=== PATIENT | female | born 1985 | race Hispanic/Latino ===

== ENCOUNTER 2022-10-09 08:37 | Emergency (ER) | payer OTHER, SELFPAY ==
[2022-10-09] MEDS ORDERED: PROMETHAZINE INJ 25 MG/ML AMP ONE (08:59)
[2022-10-09] MEDS ORDERED: KETOROLAC 30 MG/ML INJ ONE (09:00)
[2022-10-09 09:10] LABS: Specific Gravity 1.019 (1.005-1.030)
[2022-10-09 09:14] LABS: Specific Gravity 1.019 (1.005-1.030); Urine Bacteria 20-50 /HPF (<20); Urine Bilirubin NEGATIVE (Negative); Urine Blood Negative (Negative); Urine Clarity Turbid (Clear); Urine Color Light-Yellow (Yellow); Urine Glucose NEGATIVE (Negative); Urine Mucus Slight /HPF (None Seen); Urine Protein TRACE (Negative); Urine RBC <5 /HPF (None Seen); Urine Urobilinogen Normal (Normal)
[2022-10-09 09:18] LABS: Absolute Lymphocytes (CBC) 1.4 K/uL (0.7-4.9); Hematocrit 45.1 % (36.0-45.0); MCV 100.9 fL (80-100); MPV 7.6 fL (7.6-11.3); RBC Red Blood Cell Count 4.46 M/uL (3.86-4.86)
[2022-10-09 09:27] LABS: Albumin 4.6 g/dL (3.4-5.0); Bilirubin Total 0.7 mg/dL (0.2-1.0); Potassium 3.7 mEq/L (3.5-5.1); Protein, Total 8.6 g/dL (6.4-8.2)
[2022-10-09] MEDS ORDERED: FENTANYL CITR 100 MCG/2 ML ONE (09:48)
--- NOTE | 2022-10-09 09:55 | RAD REPORT ---
EXAM DESCRIPTION: US - Transvaginal Study Probe - 10/09/2022 9:24 am CLINICAL HISTORY: ABD PAIN, RLQ COMPARISON: No comparisons TECHNIQUE: Sonographic grayscale and color flow images of the pelvis were obtained through transva ginal approach. FINDINGS: Status post hysterectomy and left oophorectomy. No suspicious masses or fluid collections in the hysterectomy bed or adnexal regions. Right ovary measures 3.4 x 2.6 x 2.2 centimeter. Small follicles and an anechoic small dominant cyst or follicle, measuring 11 millimeter. Normal Doppler blood flow was demonstrated to the right ovary. No significant pelvic ascites. IMPRESSION: Status post hysterectomy and left oophorectomy. No suspicious findings in the pelvis.
--- NOTE | 2022-10-09 10:40 | RAD REPORT ---
EXAM DESCRIPTION: CT - Abdomen Pelvis Wo Contrast - 10/09/2022 10:18 am CLINICAL HISTORY: RLQ Abdominal pain COMPARISON: No comparisons TECHNIQUE: Thin cut axial CT imaging of the abdomen and pelvis was performed without IV contrast. Mu ltiplanar reformats were generated and reviewed. All CT scans are performed using dose optimization technique as appropriate and may include automated exposure control or mA/KV adjustment according to patient size. FINDINGS: No suspicious findings in the lung bases. Diffuse hepatic parenchymal hypoattenuation suggesting steatosis. No suspicious focal lesions. Adrena l glands, Spleen, and pancreas show no suspicious findings. Status post cholecystectomy. No evidence of intra or extrahepatic biliary ductal dilation. Symmetric renal contour, without suspicious parenchymal findings within limits of noncontrast techniq ue. No evidence of radiopaque calculi or hydroureteronephrosis. No dilated bowel loops or bowel wall thickening. No free air, free fluid or inflammatory stranding. N o hernia, mass or bulky lymphadenopathy. The urinary bladder is without significant finding. No suspicious bony findings. IMPRESSION: No acute intra-abdominal process. Diffuse hepatic steatosis.
--- NOTE | 2022-10-09 10:45 | EDPHYS ---
Physician Documentation [facility] Name: Fide Scott Age: 36 yrs Sex: Female : 1985 Arrival Date: 10/09/2022 Time: 08:37 Bed 6 Private MD: ED Physician Angelo Hermosillo HPI: 10/09 09:32 This 36 yrs old Female presents to ER via EMS with complaints of Abdominal ms3 Pain. 09:32 36-year-old female with past medical history of ovarian cyst presents via [facility] ms3 for right lower quadrant abdominal pain that has been ongoing for 4 days. Patient endorses emesis. Patient states the pain is a 10/10 and feels like pulling. Patient denies alleviating or inciting factors. Patient states applying heating pad to her abdomen improves the pain. Patient states she has previously had this pain when she had a cyst that was bleeding.. Historical: - Allergies: 08:44 Aspirin; ap3 08:44 Morphine; ap3 08:44 ondansetron; ap3 08:44 Levaquin; ap3 08:44 Iodine; ap3 08:44 Iodinated Contrast Media - IV Dye; ap3 08:44 PENICILLINS; ap3 - Home Meds: 08:44 None [Active]; ap3 - PSHx: 08:44 Appendectomy; Cholecystectomy; cystectomy; ap3 - Immunization history:: Client reports receiving the 2nd dose of the Covid vaccine. - Social history:: Smoking status: Patient reports the use of cigarette tobacco products, denies chronic smoking, but will smoke occasionally, Patient uses alcohol, occasionally. ROS: 09:32 Constitutional: Negative for fever, and chills. Cardiovascular: Negative for chest ms3 pain, and palpitations. Respiratory: Negative for shortness of breath, cough, wheezing, and pleuritic chest pain. 09:32 Skin: Negative for injury, rash, and discoloration. 09:32 Abdomen/GI: Positive for abdominal pain, vomiting. 09:32 All other systems are negative. Exam: 09:32 Constitutional: This is a well developed, well nourished patient who is awake, alert, ms3 and in no acute distress. Head/Face: Normocephalic, atraumatic. Neck: Trachea midline, no cervical lymphadenopathy. Supple, full range of motion without nuchal rigidity, or vertebral point tenderness. No Meningismus. Chest/axilla: Normal chest wall appearance and motion. Nontender with no deformity. Cardiovascular: Regular rate and rhythm with a normal S1 and S2. No gallops, murmurs, or rubs. Normal PMI, no JVD. No pulse deficits. Respiratory: Lungs have equal breath sounds bilaterally, clear to auscultation and percussion. No rales, rhonchi or wheezes noted. No increased work of breathing, no retractions or nasal flaring. 09:32 Abdomen/GI: Inspection: abdomen appears normal, Bowel sounds: normal, Palpation: moderate abdominal tenderness, in the right lower quadrant. Vital Signs: 08:41 BP 150 / 105; Pulse 65; Resp 18; Temp 98.5; Pulse Ox 98% on R/A; Weight 94.35 kg; Pain ap3 10/10; 09:04 BP 142 / 98; Pulse 62; Resp 18; Pulse Ox 99% ; ld1 09:43 BP 132 / 86; Pulse 61; Resp 18; Pulse Ox 99% on R/A; ld1 10:57 BP 113 / 68; Pulse 84; Resp 18; Pulse Ox 99% ; ld1 08:41 Pain Scale: Adult ap3 MDM: 08:41 Patient medically screened. snw 09:32 Differential diagnosis: non-specific abd pain, Ovarian Torsion, Ovarian cyst. ms3 10:46 Data reviewed: vital signs, nurses notes, and as a result, I will discharge patient. I ms3 considered the following discharge prescriptions or medication management in the emergency department Medications were administered in the Emergency Department. See MAR. Historians other than the Patient: EMS: [facility]. Counseling: I had a detailed discussion with the patient and/or guardian regarding: the historical points, exam findings, and any diagnostic results supporting the discharge/admit diagnosis, lab results, radiology results, the need for outpatient follow up, to return to the emergency department if symptoms worsen or persist or if there are any questions or concerns that arise at home. Response to treatment: the patient's symptoms have markedly improved after treatment, and as a result, I will discharge patient. 10/09 08:45 Order name: CBC with Diff; Complete Time: 09:30 ms3 10/09 08:45 Order name: CMP; Complete Time: 09:30 ms3 10/09 08:45 Order name: Test, Urine; Complete Time: 09:30 ms3 10/09 08:45 Order name: Urinalysis w/ reflexes; Complete Time: 09:30 ms3 10/09 09:25 Order name: Transvaginal Study Probe; Complete Time: 10:08 EDMS 10/09 10:10 Order name: CT Abd/Pelvis - Without Contrast; Complete Time: 10:41 ms3 10/09 08:45 Order name: IV Saline Lock; Complete Time: 09:03 ms3 10/09 08:45 Order name: Labs collected and sent; Complete Time: 09:03 ms3 Administered Medications: 09:03 Drug: TORadol - Ketorolac IVP 15 mg Route: IVP; Site: right antecubital; ld1 09:42 Follow up: Response: No adverse reaction ld1 09:03 Drug: Promethazine IVP 12.5 mg Route: IVP; Site: right antecubital; ld1 09:42 Follow up: Response: No adverse reaction ld1 09:42 Not Given (Not availablee): Ketamine IVP 0.2 mg/kg IVP once; Mix in 50 mL NS IV over 10 ld1 minutes. Maximum Dose 10 mg 09:42 Drug: fentaNYL (PF) IVP 50 mcg Route: IVP; Site: right antecubital; ld1 Disposition Summary: 10/09/22 10:44 Discharge Ordered Location: Home ms3 Condition: Stable ms3 Diagnosis - Lower abdominal pain, unspecified ms3 Followup: ms3 - With: Dylan Blackburn DO - When: 2 - 3 days - Reason: Recheck today's complaints Discharge Instructions: - Discharge Summary Sheet ms3 - Abdominal Pain, Adult ms3 Forms: - Medication Reconciliation Form ms3 - Thank You Letter ms3 - Antibiotic Education ms3 - Prescription Opioid Use ms3 Prescriptions: - Ibuprofen 600 mg Oral Tablet - take 1 tablet by ORAL route every 6 hours As needed take with food; 30 tablet; ms3 Refills: 0, Product Selection Permitted Signatures: Dispatcher [employer] Lesley Cortes FNP-C FNP-Edith Martínez RN RN ap3 Angelo Hermosillo DO DO ms3 Queenie Hermosillo RN RN ld1 Corrections: (The following items were deleted from the chart) 09:25 08:46 Pelvis Complete+US.RAD.BRZ ordered. EDMS EDMS
--- NOTE | 2022-10-09 10:45 | ER ---
Nurse's Notes [facility] Name: Fide Scott Age: 36 yrs Sex: Female : 1985 Arrival Date: 10/09/2022 Time: 08:37 Bed 6 Private MD: Diagnosis: Lower abdominal pain, unspecified Presentation: 10/09 08:41 Chief complaint: Patient states: she started having abdominal pain approx 4 days ago ap3 with nausea /vomiting that started this morning. patient states the pain is in the lower right side of her abdomen. patient states the pain is currently 10/10 on the pain scale. Coronavirus screen: At this time, the client does not indicate any symptoms associated with coronavirus-19. Ebola Screen: No symptoms or risks identified at this time. Initial Sepsis Screen: Does the patient meet any 2 criteria? No. Patient's initial sepsis screen is negative. Does the patient have a suspected source of infection? Yes: Acute abdominal pain. Risk Assessment: Do you want to hurt yourself or someone else? Patient reports no desire to harm self or others. Onset of symptoms was October 05, 2022. 08:41 Method Of Arrival: EMS: [facility] ap3 08:41 Acuity: MONIK 3 ap3 Triage Assessment: 08:46 General: Appears uncomfortable, Behavior is cooperative, appropriate for age. Pain: ap3 Complains of pain in right lower quadrant Pain currently is 10 out of 10 on a pain scale. Pain began gradually, 2-3 days ago. Also complains of nausea. Neuro: Level of Consciousness is awake, alert, obeys commands, Oriented to person, place, time, situation. Cardiovascular: Patient's skin is warm and dry. Respiratory: Airway is patent Respiratory effort is even, unlabored, Respiratory pattern is regular, symmetrical. GI: Reports nausea, vomiting. Historical: - Allergies: 08:44 Aspirin; ap3 08:44 Morphine; ap3 08:44 ondansetron; ap3 08:44 Levaquin; ap3 08:44 Iodine; ap3 08:44 Iodinated Contrast Media - IV Dye; ap3 08:44 PENICILLINS; ap3 - Home Meds: 08:44 None [Active]; ap3 - PSHx: 08:44 Appendectomy; Cholecystectomy; cystectomy; ap3 - Immunization history:: Client reports receiving the 2nd dose of the Covid vaccine. - Social history:: Smoking status: Patient reports the use of cigarette tobacco products, denies chronic smoking, but will smoke occasionally, Patient uses alcohol, occasionally. Screenin:46 [facility] ED Fall Risk Assessment (Adult) History of falling in the last 3 months, ap3 including since admission No falls in past 3 months (0 pts). Abuse screen: Denies threats or abuse. Nutritional screening: No deficits noted. Tuberculosis screening: No symptoms or risk factors identified. Assessment: 09:04 General: Appears in no apparent distress. uncomfortable, Behavior is calm, cooperative, ld1 appropriate for age. Pain: Complains of pain in abdomen and right lower quadrant Pain does not radiate. Pain currently is 9 out of 10 on a pain scale. Quality of pain is described as sharp, shooting, throbbing. Neuro: Level of Consciousness is awake, alert, obeys commands, Oriented to person, place, time, situation. Cardiovascular: Capillary refill < 3 seconds Patient's skin is warm and dry. Respiratory: Airway is patent Respiratory effort is even, unlabored. GI: Abdomen is round non-distended, Bowel sounds present X 4 quads. Abd is soft Abdomen is tender to palpation in right lower quadrant Reports nausea, vomiting. : No signs and/or symptoms were reported regarding the genitourinary system. EENT: No signs and/or symptoms were reported regarding the EENT system. Derm: No signs and/or symptoms reported regarding the dermatologic system. 09:35 Reassessment: Pt c/o pain to lower abdomen. Notified ERP. See MAR for orders. ld1 10:57 Reassessment: Patient appears in no apparent distress at this time. No changes from ld1 previously documented assessment. Patient and/or family updated on plan of care and expected duration. Pain level reassessed. Patient is alert, oriented x 3, equal unlabored respirations, skin warm/dry/pink. Patient states feeling better. Vital Signs: 08:41 BP 150 / 105; Pulse 65; Resp 18; Temp 98.5; Pulse Ox 98% on R/A; Weight 94.35 kg; Pain ap3 10/10; 09:04 BP 142 / 98; Pulse 62; Resp 18; Pulse Ox 99% ; ld1 09:43 BP 132 / 86; Pulse 61; Resp 18; Pulse Ox 99% on R/A; ld1 10:57 BP 113 / 68; Pulse 84; Resp 18; Pulse Ox 99% ; ld1 08:41 Pain Scale: Adult ap3 ED Course: 08:40 Patient arrived in ED. zm 08:40 Edith Hu, RN is Primary Nurse. ap3 08:41 Angelo Hermosillo DO is Attending Physician. ms3 08:44 Triage completed. ap3 08:47 Arm band placed on right wrist. ap3 08:47 Patient has correct armband on for positive identification. Bed in low position. Call ap3 light in reach. Side rails up X 1. Pulse ox on. NIBP on. Door closed. Noise minimized. 09:04 Urinalysis w/ reflexes Sent. ld1 09:04 Test, Urine Sent. ld1 09:04 CMP Sent. ld1 09:04 CBC with Diff Sent. ld1 09:05 Inserted saline lock: 20 gauge in right antecubital area, using aseptic technique. ld1 Blood collected. 09:25 Transvaginal Study Probe In Process Unspecified. EDMS 10:19 CT Abd/Pelvis - Without Contrast In Process Unspecified. EDMS 10:44 Dylan Blackburn DO is Referral Physician. ms3 10:57 No provider procedures requiring assistance completed. IV discontinued, intact, ld1 bleeding controlled, No redness/swelling at site. Administered Medications: 09:03 Drug: TORadol - Ketorolac IVP 15 mg Route: IVP; Site: right antecubital; ld1 09:42 Follow up: Response: No adverse reaction ld1 09:03 Drug: Promethazine IVP 12.5 mg Route: IVP; Site: right antecubital; ld1 09:42 Follow up: Response: No adverse reaction ld1 09:42 Not Given (Not availablee): Ketamine IVP 0.2 mg/kg IVP once; Mix in 50 mL NS IV over 10 ld1 minutes. Maximum Dose 10 mg 09:42 Drug: fentaNYL (PF) IVP 50 mcg Route: IVP; Site: right antecubital; ld1 Medication: 08:47 VIS not applicable for this client. ap3 Outcome: 10:44 Discharge ordered by MD. ms3 10:57 Discharged to home ambulatory, with family. ld1 10:57 Condition: stable 10:57 Discharge instructions given to patient, family, Instructed on discharge instructions, follow up and referral plans. medication usage, Demonstrated understanding of instructions, follow-up care, medications, Prescriptions given X 1. 10:57 Patient left the ED. ld1 Signatures: Dispatcher [employer] Edith Harmon RN RN ap3 Angelo Hermosillo DO DO ms3 Queenie Hermosillo RN RN ld1 Subha Pinzon
[2022-10-09 11:09] VITALS: TEMP 98.5
[2022-10-09 11:25] VITALS: O2SAT 99
[2022-10-09 11:27] VITALS: BP 113/68
== END 2022-10-09 10:57 | disposition home or self-care (01) ==
LOC: ER 08:37
DX: R10.31 Right lower quadrant pain (principal); F17.210 Nicotine dependence, cigarettes, uncomplicated; Z88.0 Allergy status to penicillin; Z88.1 Allergy status to other antibiotic agents; Z88.5 Allergy status to narcotic agent; Z88.6 Allergy status to analgesic agent; Z88.8 Allergy status to other drugs, medicaments and biological substances; Z91.041 Radiographic dye allergy status; Z91.048 Other nonmedicinal substance allergy status
CPT/HCPCS: 36415; 74176; 76830; 80053; 81001; 81025; 85025; 96374; 96375; 99284; J2550; J3010

== ENCOUNTER → 2023-07-24 | Emergency (ER) | payer SELFPAY ==
[~2023-07-24] MED LIST: DIPHENHYDRAMINE 50 MG/ML VIAL ONE; KETOROLAC 30 MG/ML INJ ONE; METHOCARBAMOL 1,000 MG/10 ML VIAL ONE; NA CHLORIDE 0.9% 1,000 ML ONE; NA CHLORIDE 0.9% 100 ML ONE; ONDANSETRON 4 MG/2 ML VIAL ONE; PROMETHAZINE INJ 25 MG/ML AMP ONE; dexAMETHasone 10 MG/ML VIAL ONE
--- OUTSIDE RECORDS SUMMARY | 2023-07-24 13:13 | XMS REPORT | Continuity of Care Document ---
Author Name Unknown Address [address] [place] [address] [facility] Address [address] [place] [address] Care Team Providers Care Printing Table Hand Name Role Phone BRANDO Mancuso [facility], [facility] Care Physician Unavailable NICOL ASHRAF Attending Clinician Unavailable MELE SORIA Attending Clinician UnavailMELE Lord Attending Clinician Unavailemelina cabrera Doctor Unassigned, Amanda Attending Clinician U navailable Yeni MENON Attending Clinician Unavailable Yeni Morales Attending Clinician [phone] Mele Soria MD Attending Clinician [phone] Elayne Romo RN Attending Clinician [phone] BRIA JULIEN Attending Clinician Unavailable Radha Vernon MD Attending Clinician [phone] Jacqui KATZ MD, John Attending Clinician [phone] IRVIN RENDON Attending Clinician UnavailIrvin Peng MD Attending Clinician [phone] LUNA REDMAN Attending Clinician Unavailable Luna Redman MD Attending Clinician [phone] DREA CANTU Attending Clinician Unavailab Drea Caldera DO Attending Clinician +[phone] TYSHAWN PIERCE Attending Clinician Unavailable ROS GALAN Attending Clinician Unavailable Cheyenne Jones Attending Clinician [phone] Ros Galan MD Attending Clinician + ALEJANDRO HERNANDEZ Attending Clinician Unavailable Alejandro Hernandez MD Attending Clinician +[phone] DONATO RAYO Attending Clinician Unavailable Donato Rayo MD Attending Clinician [phone] JEREMY TREVINO Attending Clinician Unavailable Vincgarcia PLAN NURSE, Shinoliver Attending Clinician + [phone] AMY OGLESBY Attending Clinician Unavaila artem CLARK, Amy F Attending Clinician [phone] PAULINA ECHEVERRIA Attending Clinician Unavailable Paulina Echeverria MD Attending Clinician + NATTY LAMB Attending Clinician Unavailable Natty Lamb MD Attending Clinician + [phone] LES HO Attending Clinician Unavailable Les Ho MD Attending Clinician +[phone] Arcadio Phipps MD Attending Clinician [phone] DAVID GONZALEZ Attending Clinician Unavailable David Gonzalez DO Attending Clinician +[phone] OLIVER HARP Attending Clinician Unavailable Oliver Mandujano Attending Clinician [phone] Attending Clinician Unavailable Tory Campbell MD Attending Clinician + [phone] TORY CAMPBELL Attending Clinician Unavaila Stephanie Wayne Attending Clinician [phone] Nilda BELTRAN, Kayleen Neely Attending Clinician Unavail able Tyshawn Pierce MD Attending Clinician + [phone] CHEYENNE SAENZ Attending Clinician Unavailable Lila Snyder NP Attending Clinician + [phone] LILA SNYDER Attending Clinician Unavailable YODIT, K MARINA Admitting Clinician Unavailable VERNON, RADHA Admitting Clinician Unavailable Radha Vernon MD Admitting Clinician ROS GALAN Admitting Clinician Unavailable ALEJANDRO HERNANDEZ Admitting Clinician Unavailable JEREMY TREVINO Admitting Clinician Unavailable AMY OGLESBY Admitting Clinician UnavailLES Burks Admitting Clinician Unavailable Les Ho MD Admitting Clinician [phone] LUNA REDMAN Admitting Clinician Unavailable DAVID GONZALEZ Admitting Clinician Unavailable OLIVER HARP Admitting Clinician Unavailable Tyshawn Pierce MD Admitting Clinician [phone] TYSHAWN PIERCE Admitting Clinician Unavailable LILA SNYDER Admitting Clinician Unavailable Payers Payer Name Policy Type Policy Number Effective Date Expirati on Date Source BCBS OUT OF STATE MEDICAID [id number] 2019 00:00:00 MEDICAID GENERIC [id number] 1 00:00:00 Problems Condition Name Condition Details Condition Category Status Onset Date Resolution Date Last Treatment Date Treating Clinician Comments Source 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 8-27 00:00: 00 [facility] Obesity (BMI 30-39.9) Obesity (BMI 30-39.9) Disease Active 8-15 00:00: 00 [facility] Abscess Abscess Disease Active 8-13 00:00: 00 [facility] Ovarian torsion Ovarian torsion Disease Active 3-12 00:00: 00 [facility] Allergies, Adverse Reactions, Alerts Allergy Name Allergy Type Status Severity Reaction(s) Onset Date Inactive Date Treating Clinician Comments Source CODEINE DRUG INGREDI Active High ITCHING 8-28 00:00: 00 [facility] Codeine Propensi ty to adverse reaction s to drug Active Itching 8-28 00:00: 00 [facility] ONDANSET SHITAL HCL DRUG INGREDI Active Rash 4-26 00:00: 00 [facility] Ondanset shital Hcl Propensi ty to adverse reaction s Active Rash 09-10 00:00: 00 [facility] IODINE DRUG INGREDI Active Other-Cmnt 3- 00:00: 00 [facility] Iodine Propensi ty to adverse reaction s Active Other - See comments 3- 00:00: 00 [facility] Levoflox acin Propensi ty to adverse reaction s Active Rash 0 3- 00:00: 00 [facility] LEVOFLOX ACIN DRUG INGREDI Active Rash 3 00:00: 00 [facility] Aspirin Propensi ty to adverse reaction s Active Shortness of Breath 06-16 00:00: 00 [facility] Morphine Propensi ty to adverse reaction s Active Other - See comments 06-16 00:00: 00 "makes me the hulk" [facility] Penicill in Propensi ty to adverse reaction s Active Swelling 06-16 00:00: 00 [facility] ASPIRIN DRUG INGREDI Active Rash 06-16 00:00: 00 [facility] MORPHINE DRUG INGREDI Active Other-Cmnt 06-16 00:00: 00 [facility] PENICILL IN DRUG INGREDI Active Rash 06-16 00:00: 00 [facility] Social History Social Habit Start Date Stop Date Quantity Comments Source History of tobacco use Passive smoker [facility] History SDOH Alcohol Frequency [facility] History SDOH Alcohol Std Drinks [facility] History SDOH Alcohol Binge [facility] Gender identity [facility] Alcohol intake 2023-02-10 00:00:00 2023-02-10 00:00:00 Current drinker of alcohol (finding) [facility] History of Social function 2023-02-09 00:00:00 2023-02-09 00:00:00 [facility] Tobacco use and exposure 2023-01-11 00:00:00 2023-01-11 00:00:00 Smokeless tobacco non-user [facility] Exposure to SARS-CoV-2 (event) 2022-10-06 00:00:00 2022-10-16 01:10:00 Not sure [facility] Education 2021-07-27 00:00:00 2021-07-27 00:00:00 21 [facility] Alcohol Comment 2021-07-27 00:00:00 2021-07-27 00:00:00 social [facility] Sex Assigned At 1985 00:00:00 1985 00:00:00 [facility] Smoking Status Start Date Stop Date Source Never smoked tobacco [facility] Medications Ordered Medication Name Filled Medication Name Start Date Stop Date Current Medication? Ordering Clinician Indication Dosage Frequency Signature (SIG) Comments Components Source cefTRIAXone (ROCEPHIN) 1,000 mg in NaCl 0.9% (NS) 100 mL MINI-BAG 02-10 22:15: 00 02-10 23:04 :00 No 1000mg 1,000 mg, IV Piggyback, ONCE, 1 dose, On Thu02/10/23 at 1715, Administer over 30 Minutes, 100 mL
Reas on for Anti-Infec tive: Documented Infection< br>Documen steven Infection Site: Urine
D uration of Therapy: Other (see Comments) [facility] ketorolac (TORADOL) injection 15 mg 02-10 20:30: 00 02-10 20:07 :00 No 15mg 15 mg, Slow IV Push, ONCE, 1 dose, On Thu02/10/23 at 1530, DANIS [facility] NaCl 0.9% (NS) bolus infusion 1,000 mL 02-10 20:30: 00 02-10 22:34 :00 No 1000mL at 999 mL/hr, 1,000 mL, IV Infusion, ONCE, 1 dose, On Thu02/10/23 at 1530, STAT [facility] proMETHazin e (PHENERGAN) 12.5 mg in NaCl 0.9% (NS) 50 mL IV piggyback 02-10 19:45: 00 02-10 19:53 :00 No 12.5mg 12.5 mg, IV Piggyback, ONCE, 1 dose, On Thu02/10/23 at 1445, DANIS [facility] proMETHazin e 25 mg tablet 02-10 00:00: 00 Yes [id number] 25mg Take 1 tablet by mouth every 6 (six) hours as needed for Nausea and Vomiting (N/V). [facility] proMETHazin e 25 mg tablet 02-10 00:00: 00 Yes [id number] 25mg Take 1 tablet by mouth every 6 (six) hours as needed for Nausea and Vomiting (N/V). [facility] cefdinir 300 mg capsule 02-10 00:00: 00 02-21 04:59 :00 No [id number] 300mg Take 1 capsule by mouth every 12 (twelve) hours for 10 days. [facility] cefdinir 300 mg capsule 02-10 00:00: 00 02-21 04:59 :00 No [id number] 300mg Take 1 capsule by mouth every 12 (twelve) hours for 10 days. [facility] metoclopram karina HCl (REGLAN) injection 5 mg 01-13 03:42: 02 Yes 5mg 5 mg, Slow IV Push, Q6HPRN, Starting on Thu01/12/23 at 2242, Until Discontinu ed, Routine, Nausea and Vomiting (N/V) [facility] sulfamethox azole-trime thoprim (BACTRIM DS) 800-160 mg per tablet 01-13 00:00: 00 01-21 04:59 :00 No [id number] 1{tbl} Take 1 tablet by mouth in the morning and 1 tablet in the evening. Do all this for 7 days. [facility] metroNIDAZO LE (FLAGYL) 500 mg tablet 01-13 00:00: 00 01-21 04:59 :00 No [id number] 500mg Take 1 tablet by mouth every 8 (eight) hours for 7 days. [facility] sulfamethox azole-trime thoprim (BACTRIM DS) 800-160 mg per tablet 01-13 00:00: 00 01-21 04:59 :00 No [id number] 1{tbl} Take 1 tablet by mouth in the morning and 1 tablet in the evening. Do all this for 7 days. [facility] metroNIDAZO LE (FLAGYL) 500 mg tablet 01-13 00:00: 00 01-21 04:59 :00 No [id number] 500mg Take 1 tablet by mouth every 8 (eight) hours for 7 days. [facility] metroNIDAZO LE 250 mg tablet 01-13 00:00: 00 01-13 00:00 :00 No [id number] 500mg Take 2 tablets by mouth every 8 (eight) hours for 7 days. [facility] metroNIDAZO LE (FLAGYL) 500 mg tablet 01-13 00:00: 00 01-13 00:00 :00 No [id number] 500mg Take 1 tablet by mouth every 12 (twelve) hours for 7 days. [facility] enoxaparin (LOVENOX) injection 40 mg 01-12 14:00: 00 02-09 13:59 :00 No 40mg 40 mg, Subcutaneo us, DAILY, 28 doses, First dose on 01/12/23 at 0900, Last dose on 02/08/23 at 0900, Routine [facility] metroNIDAZO LE in NaCl (iso-os) (FLAGYL I.V.) RTU IV infusion 500 mg 01-12 02:45: 00 01-26 02:44 :00 No 500mg 500 mg, IV Infusion, Q8H ABX, 42 doses, First dose on 01/11/23 at 2145, Last dose on 01/25/23 at 1345, Administer over 60 Minutes, 100 mL
Reas on for Anti-Infec tive: Surgical Prophylaxi s
Surgi kailash Prophylaxi s: Orthopaedi c
Durat ion of therapy: within 24 hours of surgery [facility] vancomycin 1,250 mg in NaCl 0.9% (NS) 250 mL VIAL-MATE IV piggyback 01-12 02:45: 00 01-14 18:44 :00 No 15mg/kg 1,250 mg (rounded from 1,258.5 mg = 15 mg/kg ?83.9 kg), IV Piggyback, Q8H ABX, 8 doses, First dose (after last modificati on) on Thu01/11/23 at 2145, Last dose on Thu01/14/23 at 0545, Administer over 90 Minutes, 250 mL
Reas on for Anti-Infec tive: Empiric Therapy for Suspected Infection< br>Empiric Therapy Site: Skin / Soft tissue
Duration of therapy: 5 days [facility] melatonin (MELATIN) tablet 3 mg 01-12 02:00: 00 Yes 3mg 3 mg, Oral, QHS, First dose on Thu01/11/23 at 2100, Until Discontinu ed, Routine [facility] methocarbam oL (ROBAXIN) tablet 750 mg 01-12 01:00: 00 Yes 750mg 750 mg, Oral, QID, First dose (after last modificati on) on Thu01/11/23 at 2000, Until Discontinu ed, Routine [facility] sennosides- docusate sodium (SENOKOT-S) 8.6-50 mg per tablet 1 tablet 01-12 01:00: 00 Yes 1{tbl} 1 tablet, Oral, BID, First dose on Thu01/11/23 at 2000, Until Discontinu ed, Routine [facility] methocarbam oL 750 mg tablet 01-12 00:00: 00 01-28 04:59 :00 No [id number] 750mg Take 1 tablet by mouth in the morning and 1 tablet at noon and 1 tablet in the evening. Do all this for 14 days. [facility] gabapentin 300 mg capsule 01-12 00:00: 00 01-28 04:59 :00 No [id number] 300mg Take 1 capsule by mouth in the morning and 1 capsule at noon and 1 capsule in the evening. Do all this for 14 days. [facility] methocarbam oL 750 mg tablet 01-12 00:00: 00 01-28 04:59 :00 No [id number] 750mg Take 1 tablet by mouth in the morning and 1 tablet at noon and 1 tablet in the evening. Do all this for 14 days. [facility] gabapentin 300 mg capsule 01-12 00:00: 00 01-28 04:59 :00 No [id number] 300mg Take 1 capsule by mouth in the morning and 1 capsule at noon and 1 capsule in the evening. Do all this for 14 days. [facility] traMADoL 50 mg tablet 01-12 00:00: 00 01-21 04:59 :00 No [id number] 50mg Take 1 tablet by mouth every 6 (six) hours as needed for Pain (scale 4-6) or Pain (scale 7-10) for up to 7 days. Indication s: acute pain [facility] traMADoL 50 mg tablet 01-12 00:00: 00 01-21 04:59 :00 No [id number] 50mg Take 1 tablet by mouth every 6 (six) hours as needed for Pain (scale 4-6) or Pain (scale 7-10) for up to 7 days. Indication s: acute pain [facility] amoxicillin -clavulanat e 875-125 mg per tablet 01-12 00:00: 00 01-12 00:00 :00 No [id number] 1{tbl} Take 1 tablet by mouth in the morning and 1 tablet in the evening. Do all this for 7 days. [facility] FENTanyl PF (SUBLIMAZE (PF)) injection 25 mcg 01-11 22:55: 42 Yes 25ug 25 mcg, Slow IV Push, Q4HPRN, Starting on 01/11/23 at 1755, Until Discontinu ed, Routine, For pain unrelieved by oral medication s, or if patient is unable to tolerate oral pain medication . [facility] proMETHazin e (PHENERGAN) tablet 25 mg 01-11 22:55: 19 Yes 25mg 25 mg, Oral, Q4HPRN, Starting on Thu01/11/23 at 1755, Until Discontinu ed, Routine, N/V unresponsi ve to Ondansetro n [facility] polyethylen e glycol 3350 powder 17 g 01-11 22:53: 59 Yes 17g 17 g, Oral, QDAILYPRN, Starting on Thu01/11/23 at 1753, Until Discontinu ed, Routine, Constipati on [facility] diphenhydrA MINE (BENADRYL) tablet 25 mg 01-11 22:53: 59 Yes 25mg 25 mg, Oral, Q4HPRN, Starting on Thu01/11/23 at 1753, Until Discontinu ed, Routine, Itching [facility] traMADoL (ULTRAM) tablet 50 mg 01-11 22:53: 58 Yes 50mg 50 mg, Oral, Q6HPRN, Starting on Thu01/11/23 at 1753, Until Discontinu ed, Routine, Pain (scale 4-6) [facility] HYDROcodone -acetaminop hen (NORCO) 10-325 mg tablet 1 tablet 01-11 22:53: 58 Yes 1{tbl} 1 tablet, Oral, Q4HPRN, Starting on Thu01/11/23 at 1753, Until Discontinu ed, Routine, Pain (scale 7-10) [facility] rabies immune globulin (PF) (HYPERRAB (PF)) injection 1,677 Units 01-11 20:30: 00 01-11 18:45 :00 No 20U/kg 1,677 Units (rounded from 1,678 Units = 20 Units/kg ?83.9 kg), Intramuscu lar, ONCE, 1 dose, On Thu01/11/23 at 1530, Routine [facility] FENTanyl PF (SUBLIMAZE (PF)) injection 50 mcg 01-11 19:15: 00 01-11 20:00 :00 No 50ug 50 mcg, Slow IV Push, ONCE, 1 dose, On Thu01/11/23 at 1415, STAT [facility] proMETHazin e (PHENERGAN) 12.5 mg in NaCl 0.9% (NS) 50 mL IV piggyback 01-11 19:15: 00 01-11 20:01 :00 No 12.5mg 12.5 mg, IV Piggyback, ONCE, 1 dose, On 01/11/23 at 1415, DANIS [facility] vancomycin (VANCOCIN) 1,000 mg in NaCl 0.9% (NS) 250 mL VIAL-MATE IV piggyback 01-11 18:30: 00 01-11 21:15 :00 No 1000mg 1,000 mg, IV Piggyback, ONCE, 1 dose, On 01/11/23 at 1330, Administer over 60 Minutes, 250 mL
Reas on for Anti-Infec tive: Empiric Therapy for Suspected Infection< br>Empiric Therapy Site: Skin / Soft tissue
Duration of therapy: 5 days [facility] clindamycin in 5 % dextrose (CLEOCIN) 900 mg/50 mL IV piggyback RTU 900 mg 01-11 18:15: 00 01-11 20:00 :00 No 900mg 900 mg, IV Piggyback, ONCE, 1 dose, On 01/11/23 at 1315, Administer over 30 Minutes, 50 mL
Reas on for Anti-Infec tive: Empiric Therapy for Suspected Infection< br>Empiric Therapy Site: Skin / Soft tissue
Duration of therapy: 5 days
Re stricted use approved by: After Hours (for ADC, CLC, LCC ONLY) [facility] FENTanyl PF (SUBLIMAZE (PF)) injection 50 mcg 01-11 18:15: 00 01-11 18:34 :00 No 50ug 50 mcg, Slow IV Push, ONCE, 1 dose, On 01/11/23 at 1315, STAT [facility] HYDROcodone -acetaminop hen (NORCO 5) 5-325 mg tablet 1 tablet 12-10 16:45: 00 12-10 16:48 :00 No 1{tbl} 1 tablet, Oral, ONCE, 1 dose, On Thu12/10/22 at 1145, [facility] cefUROXime 500 mg tablet 12-10 00:00: 00 12-18 04:59 :00 No [id number] 500mg Take 1 tablet by mouth in the morning and 1 tablet in the evening. Do all this for 7 days. [facility] FENTanyl PF (SUBLIMAZE (PF)) injection 75 mcg 10-16 13:00: 00 10-16 12:11 :00 No 75ug 75 mcg, Slow IV Push, ONCE, 1 dose, On Thu10/16/22 at 0800, STAT [facility] metoclopram karina HCl (REGLAN) injection 10 mg 10-16 12:30: 00 10-16 12:25 :00 No 10mg 10 mg, Slow IV Push, ONCE, 1 dose, On Thu10/16/22 at 0730, [facility] FENTanyl PF (SUBLIMAZE (PF)) injection 75 mcg 10-16 12:00: 00 10-16 10:50 :00 No 75ug 75 mcg, Slow IV Push, ONCE, 1 dose, On Thu10/16/22 at 0700, STAT [facility] FENTanyl PF (SUBLIMAZE (PF)) injection 50 mcg 10-16 08:00: 00 10-16 07:52 :00 No 50ug 50 mcg, Slow IV Push, ONCE, 1 dose, On Thu10/16/22 at 0300, STAT [facility] ketorolac (TORADOL) injection 30 mg 10-16 08:00: 00 10-16 07:01 :00 No 30mg 30 mg, Slow IV Push, ONCE, 1 dose, On Thu10/16/22 at 0300, [facility] proMETHazin e (PHENERGAN) 25 mg in NaCl 0.9% (NS) 50 mL IV piggyback 10-16 07:00: 00 10-16 07:02 :00 No 25mg 25 mg, IV Piggyback, ONCE, 1 dose, On Ada 10/16/22 at 0200, DANIS [facility] polyethylen e glycol 3350 (MIRALAX) 17 gram powder 10-16 00:00: 00 Yes [id number] 1{packe t} Take 1 Packet by mouth every 4 (four) hours as needed for Constipati on for up to 12 doses. [facility] polyethylen e glycol 3350 (MIRALAX) 17 gram powder 10-16 00:00: 00 Yes [id number] 1{packe t} Take 1 Packet by mouth every 4 (four) hours as needed for Constipati on for up to 12 doses. [facility] polyethylen e glycol 3350 (MIRALAX) 17 gram powder 10-16 00:00: 00 Yes [id number] 1{packe t} Take 1 Packet by mouth every 4 (four) hours as needed for Constipati on for up to 12 doses. [facility] polyethylen e glycol 3350 (MIRALAX) 17 gram powder 10-16 00:00: 00 Yes [id number] 1{packe t} Take 1 Packet by mouth every 4 (four) hours as needed for Constipati on for up to 12 doses. [facility] polyethylen e glycol 3350 (MIRALAX) 17 gram powder 10-16 00:00: 00 01-11 00:00 :00 No [id number] 1{packe t} Take 1 Packet by mouth every 4 (four) hours as needed for Constipati on for up to 12 doses. [facility] HYDROcodone -acetaminop hen (NORCO) 10-325 mg tablet 10-16 00:00: 00 10-24 04:59 :00 No [id number] 1{tbl} Take 1 tablet by mouth every 6 (six) hours as needed for Pain (scale 4-6) for up to 7 days. Indication s: acute pain [facility] glycerin/mi neral oil, AGLO ENEMA, Enem 10-16 00:00: 10-17 04:59 :00 No [id number] 225mL Insert 225 mL into rectum once now for 1 dose. [facility] FENTanyl PF (SUBLIMAZE (PF)) injection 50 mcg 09-10 20:45: 00 09-10 20:42 :00 No 50ug 50 mcg, Slow IV Push, ONCE, 1 dose, On Thu09/10/22 at 1545, STAT [facility] NaCl 0.9% (NS) bolus infusion 1,000 mL 09-10 18:15: 00 09-10 21:04 :00 No 1000mL at 999 mL/hr, 1,000 mL, IV Piggyback, ONCE, 1 dose, On Thu09/10/22 at 1315, STAT [facility] FENTanyl PF (SUBLIMAZE (PF)) injection 50 mcg 09-10 17:30: 00 09-10 17:56 :00 No 50ug 50 mcg, Slow IV Push, ONCE, 1 dose, On Thu09/10/22 at 1230, STAT [facility] proMETHazin e (PHENERGAN) 25 mg in NaCl 0.9% (NS) 50 mL IV piggyback 09-10 17:30: 00 09-10 17:30 :00 No 25mg 25 mg, IV Piggyback, ONCE, 1 dose, On Thu09/10/22 at 1230, DANIS [facility] proMETHazin e 25 mg tablet 09-10 00:00: 00 Yes [id number] 25mg Take 1 tablet by mouth every 6 (six) hours as needed for Nausea and Vomiting (N/V). [facility] proMETHazin e 25 mg tablet 09-10 00:00: 00 Yes [id number] 25mg Take 1 tablet by mouth every 6 (six) hours as needed for Nausea and Vomiting (N/V). [facility] proMETHazin e 25 mg tablet 09-10 00:00: 00 Yes [id number] 25mg Take 1 tablet by mouth every 6 (six) hours as needed for Nausea and Vomiting (N/V). [facility] proMETHazin e 25 mg tablet 09-10 00:00: 00 Yes [id number] 25mg Take 1 tablet by mouth every 6 (six) hours as needed for Nausea and Vomiting (N/V). [facility] proMETHazin e 25 mg tablet 09-10 00:00: 00 Yes [id number] 25mg Take 1 tablet by mouth every 6 (six) hours as needed for Nausea and Vomiting (N/V). [facility] proMETHazin e 25 mg tablet 09-10 00:00: 00 01-11 00:00 :00 No [id number] 25mg Take 1 tablet by mouth every 6 (six) hours as needed for Nausea and Vomiting (N/V). [facility] HYDROcodone -acetaminop hen (NORCO) 10-325 mg tablet 09-10 00:00: 00 09-18 04:59 :00 No [id number] 1{tbl} Take 1 tablet by mouth every 6 (six) hours as needed for Pain (scale 7-10) for up to 7 days. Indication s: acute pain [facility] methylpredn isolone sod succ (SOLU-MEDRO L) injection 125 mg 07-29 01:15: 00 07-29 00:27 :00 No 125mg 125 mg, Intramuscu lar, ONCE, 1 dose, On Thu07/28/22 at 2015, DANIS [facility] levalbutero l (XOPENEX) nebulizer solution 1.25 mg 07-29 01:00: 00 Yes 1.25mg 1.25 mg, Inhalation , TID, First dose on Thu07/28/22 at 2000, Until Discontinu ed, Routine [facility] benzonatate (TESSALON PERLES) capsule 200 mg 07-29 00:15: 00 07-29 00:25 :00 No 200mg 200 mg, Oral, ONCE, 1 dose, On Thu07/28/22 at 1915, DANIS [facility] acetaminoph en (TYLENOL) tablet 1,000 mg 07-29 00:15: 00 07-29 00:25 :00 No 1000mg 1,000 mg, Oral, ONCE, 1 dose, On Thu07/28/22 at 1914, DANIS [facility] ipratropium (ATROVENT) 0.02 % nebulizer solution 0.5 mg 07-29 00:15: 00 07-29 00:39 :00 No .5mg 0.5 mg, Inhalation , ONCE, 1 dose, On Thu07/28/22 at 5, DANIS [facility] azithromyci n (ZITHROMAX) tablet 500 mg 07-29 00:15: 00 07-29 00:25 :00 No 500mg 500 mg, Oral, ONCE, 1 dose, On Thu07/28/22 at 1914, DANIS
Re ason for Anti-Infec tive: Documented Infection< br>Documen steven Infection Site: Respirator y
Durat ion of Therapy: Other (see Comments) [facility] azithromyci n (ZITHROMAX Z-KAYA) 250 mg tablet 07-28 00:00: 00 Yes [id number] 250mg Take 1 tablet by mouth SEE-INSTRU CTIONS. Take 500 mg day 1, then 250 mg days 2 to 5. [facility] levalbutero l (XOPENEX) 1.25 mg/3 mL nebulizer solution 07-28 00:00: 00 Yes [id number] 1.25mg Inhale 1.25 mg in the morning and 1.25 mg at noon and 1.25 mg in the evening. [facility] predniSONE 20 mg tablet 07-28 00:00: 00 Yes [id number] 1 PO BID x 4 days [facility] benzonatate 200 mg capsule 07-28 00:00: 00 Yes [id number] 200mg Take 1 capsule by mouth 3 (three) times daily as needed for Cough for up to 20 doses. [facility] azithromyci n (ZITHROMAX Z-KAYA) 250 mg tablet 2022-07-28 00:00: 00 Yes [id number] 250mg Take 1 tablet by mouth SEE-INSTRU CTIONS. Take 500 mg day 1, then 250 mg days 2 to 5. [facility] levalbutero l (XOPENEX) 1.25 mg/3 mL nebulizer solution 07-28 00:00: 00 Yes [id number] 1.25mg Inhale 1.25 mg in the morning and 1.25 mg at noon and 1.25 mg in the evening. [facility] predniSONE 20 mg tablet 07-28 00:00: 00 Yes [id number] 1 PO BID x 4 days [facility] benzonatate 200 mg capsule 07-28 00:00: 00 Yes [id number] 200mg Take 1 capsule by mouth 3 (three) times daily as needed for Cough for up to 20 doses. [facility] azithromyci n (ZITHROMAX Z-KAYA) 250 mg tablet 07-28 00:00: 00 Yes [id number] 250mg Take 1 tablet by mouth SEE-INSTRU CTIONS. Take 500 mg day 1, then 250 mg days 2 to 5. [facility] levalbutero l (XOPENEX) 1.25 mg/3 mL nebulizer solution 07-28 00:00: 00 Yes [id number] 1.25mg Inhale 1.25 mg in the morning and 1.25 mg at noon and 1.25 mg in the evening. [facility] predniSONE 20 mg tablet 07-28 00:00: 00 Yes [id number] 1 PO BID x 4 days [facility] benzonatate 200 mg capsule 2022-0 07-28 00:00: 00 Yes [id number] 200mg Take 1 capsule by mouth 3 (three) times daily as needed for Cough for up to 20 doses. [facility] azithromyci n (ZITHROMAX Z-KAYA) 250 mg tablet 2022-07-28 00:00: 00 Yes [id number] 250mg Take 1 tablet by mouth SEE-INSTRU CTIONS. Take 500 mg day 1, then 250 mg days 2 to 5. [facility] levalbutero l (XOPENEX) 1.25 mg/3 mL nebulizer solution 07-28 00:00: 00 Yes [id number] 1.25mg Inhale 1.25 mg in the morning and 1.25 mg at noon and 1.25 mg in the evening. [facility] predniSONE 20 mg tablet 07-28 00:00: 00 Yes [id number] 1 PO BID x 4 days [facility] benzonatate 200 mg capsule 07-28 00:00: 00 Yes [id number] 200mg Take 1 capsule by mouth 3 (three) times daily as needed for Cough for up to 20 doses. [facility] azithromyci n (ZITHROMAX Z-KAYA) 250 mg tablet 07-28 00:00: 00 Yes [id number] 250mg Take 1 tablet by mouth SEE-INSTRU CTIONS. Take 500 mg day 1, then 250 mg days 2 to 5. [facility] levalbutero l (XOPENEX) 1.25 mg/3 mL nebulizer solution 07-28 00:00: 00 Yes [id number] 1.25mg Inhale 1.25 mg in the morning and 1.25 mg at noon and 1.25 mg in the evening. [facility] predniSONE 20 mg tablet 07-28 00:00: 00 Yes [id number] 1 PO BID x 4 days [facility] benzonatate 200 mg capsule 07-28 00:00: 00 Yes [id number] 200mg Take 1 capsule by mouth 3 (three) times daily as needed for Cough for up to 20 doses. [facility] azithromyci n (ZITHROMAX Z-KAYA) 250 mg tablet 07-28 00:00: 00 Yes [id number] 250mg Take 1 tablet by mouth SEE-INSTRU CTIONS. Take 500 mg day 1, then 250 mg days 2 to 5. [facility] levalbutero l (XOPENEX) 1.25 mg/3 mL nebulizer solution 07-28 00:00: 00 Yes [id number] 1.25mg Inhale 1.25 mg in the morning and 1.25 mg at noon and 1.25 mg in the evening. [facility] predniSONE 20 mg tablet 07-28 00:00: 00 Yes [id number] 1 PO BID x 4 days [facility] benzonatate 200 mg capsule 07-28 00:00: 00 Yes [id number] 200mg Take 1 capsule by mouth 3 (three) times daily as needed for Cough for up to 20 doses. [facility] azithromyci n (ZITHROMAX Z-KAYA) 250 mg tablet 07-28 00:00: 00 01-11 00:00 :00 No [id number] 250mg Take 1 tablet by mouth SEE-INSTRU CTIONS. Take 500 mg day 1, then 250 mg days 2 to 5. [facility] levalbutero l (XOPENEX) 1.25 mg/3 mL nebulizer solution 07-28 00:00: 00 01-11 00:00 :00 No [id number] 1.25mg Inhale 1.25 mg in the morning and 1.25 mg at noon and 1.25 mg in the evening. [facility] predniSONE 20 mg tablet 07-28 00:00: 00 01-11 00:00 :00 No [id number] 1 PO BID x 4 days [facility] benzonatate 200 mg capsule 07-28 00:00: 00 01-11 00:00 :00 No [id number] 200mg Take 1 capsule by mouth 3 (three) times daily as needed for Cough for up to 20 doses. [facility] methylpredn isolone sod succ (SOLU-MEDRO L) injection 125 mg 07-15 21:30: 00 07-15 20:37 :00 No 125mg 125 mg, Intravenou s, ONCE, 1 dose, On Thu07/15/22 at 1530, 2 mL [facility] iopamidol (ISOVUE 370-500 mL) injection 88 mL 07-15 21:15: 00 07-15 21:15 :00 No [id number] 88mL 88 mL, Intravenou s, ONCE, 1 dose, On Thu07/15/22 at 1515, [facility] diphenhydrA MINE (BENADRYL) injection 25 mg 07-15 20:35: 00 07-15 20:37 :00 No 25mg 25 mg, Slow IV Push, ONCE, 1 dose, On Thu07/15/22 at 1445, [facility] NaCl 0.9% (NS) IV infusion 1,000 mL 07-15 20:27: 00 07-15 22:31 :00 No 1000mL at 999 mL/hr, Intravenou s, ONCE, 1 dose, On Thu07/15/22 at 1430, [facility] ondansetron (ZOFRAN (PF)) injection 4 mg 07-15 20:27: 00 07-15 20:28 :00 No 4mg 4 mg, Slow IV Push, ONCE, 1 dose, On Thu07/15/22 at 1430, [facility] FENTanyl PF (SUBLIMAZE (PF)) injection 50 mcg 07-15 19:30: 00 07-15 20:40 :00 No 50ug 50 mcg, Slow IV Push, ONCE, 1 dose, On Thu07/15/22 at 1345, [facility] famotidine (PEPCID (PF)) injection 20 mg 07-15 17:01: 00 07-15 17:13 :00 No 20mg 20 mg, Slow IV Push, ONCE, 1 dose, On Thu07/15/22 at 1115, [facility] FENTanyl PF (SUBLIMAZE (PF)) injection 50 mcg 07-15 17:00: 00 07-15 17:18 :00 No 50ug 50 mcg, Slow IV Push, ONCE, 1 dose, On Thu07/15/22 at 1115, [facility] sodium chloride (NS) injection 5 mL 07-15 15:41: 30 Yes 5mL 5 mL, Intravenou s, PRN, Starting on Thu07/15/22 at 0941, Until Discontinu ed, Routine, IV line flushing [facility] famotidine (PEPCID) 40 mg tablet 0 07-15 00:00: 00 Yes [id number] 40mg Take 1 tablet by mouth in the morning. [facility] famotidine (PEPCID) 40 mg tablet 0 07-15 00:00: 00 Yes [id number] 40mg Take 1 tablet by mouth in the morning. [facility] famotidine (PEPCID) 40 mg tablet 0 07-15 00:00: 00 Yes [id number] 40mg Take 1 tablet by mouth in the morning. [facility] famotidine (PEPCID) 40 mg tablet 0 07-15 00:00: 00 Yes [id number] 40mg Take 1 tablet by mouth in the morning. [facility] famotidine (PEPCID) 40 mg tablet 0 07-15 00:00: 00 Yes [id number] 40mg Take 1 tablet by mouth in the morning. [facility] famotidine (PEPCID) 40 mg tablet 0 07-15 00:00: 00 Yes [id number] 40mg Take 1 tablet by mouth in the morning. [facility] famotidine (PEPCID) 40 mg tablet 0 07-15 00:00: 00 Yes [id number] 40mg Take 1 tablet by mouth in the morning. [facility] famotidine (PEPCID) 40 mg tablet 0 07-15 00:00: 00 Yes [id number] 40mg Take 1 tablet by mouth in the morning. [facility] famotidine (PEPCID) 40 mg tablet 07-15 00:00: 00 01-11 00:00 :00 No [id number] 40mg Take 1 tablet by mouth in the morning. [facility] iopamidol (ISOVUE 370-500 mL) injection 75 mL 1-10 17:00: 00 05-27 17:04 :00 No [id number] 75mL 75 mL, Intravenou s, ONCE, 1 dose, On Thu05/27/22 at 1100, Routine [facility] diphenhydrA MINE (BENADRYL) injection 25 mg 05-27 16:45: 00 05-27 17:10 :00 No 25mg 25 mg, Slow IV Push, ONCE, 1 dose, On Thu05/27/22 at 1045, STAT [facility] metoclopram karina HCl (REGLAN) injection 10 mg 05-27 16:45: 00 05-27 16:53 :00 No 10mg 10 mg, Slow IV Push, ONCE, 1 dose, On Thu05/27/22 at 1045, DANIS [facility] cefTRIAXone (ROCEPHIN) 1,000 mg in NaCl 0.9% (NS) 50 mL MINI-BAG 05-27 16:45: 00 05-27 17:41 :00 No 1000mg 1,000 mg, IV Piggyback, ONCE, 1 dose, On Thu05/27/22 at 1045, Administer over 30 Minutes, 50 mL
Reas on for Anti-Infec tive: Documented Infection< br>Documen steven Infection Site: Urine
D uration of Therapy: 7 days [facility] FENTanyl PF (SUBLIMAZE (PF)) injection 50 mcg 05-27 16:45: 00 05-27 16:11 :00 No 50ug 50 mcg, Slow IV Push, ONCE, 1 dose, On Thu05/27/22 at 1045, Routine [facility] NaCl 0.9% (NS) bolus infusion 1,000 mL 05-27 16:15: 00 05-27 17:30 :00 No 1000mL at 999 mL/hr, 1,000 mL, IV Infusion, ONCE, 1 dose, On Thu05/27/22 at 1015, DANIS [facility] ondansetron (ZOFRAN (PF)) injection 4 mg 05-27 16:00: 05-27 16:05 :00 No 4mg 4 mg, Slow IV Push, ONCE, 1 dose, On Thu05/27/22 at 1000, DANIS [facility] metoclopram karina HCl 10 mg tablet 2022-0 1-10 00:00: 00 Yes [id number] 10mg Take 1 tablet by mouth every 6 (six) hours as needed for Nausea and Vomiting (N/V). [facility] metoclopram karina HCl 10 mg tablet 2022-0 1-10 00:00: 00 Yes [id number] 10mg Take 1 tablet by mouth every 6 (six) hours as needed for Nausea and Vomiting (N/V). [facility] metoclopram karina HCl 10 mg tablet 2022-0 -10 00:00: 00 Yes [id number] 10mg Take 1 tablet by mouth every 6 (six) hours as needed for Nausea and Vomiting (N/V). [facility] metoclopram karina HCl 10 mg tablet 2022-0 -10 00:00: 00 Yes [id number] 10mg Take 1 tablet by mouth every 6 (six) hours as needed for Nausea and Vomiting (N/V). [facility] metoclopram karina HCl 10 mg tablet 2022-0 -10 00:00: 00 Yes [id number] 10mg Take 1 tablet by mouth every 6 (six) hours as needed for Nausea and Vomiting (N/V). [facility] metoclopram karina HCl 10 mg tablet 3-0 1-10 00:00: 00 Yes [id number] 10mg Take 1 tablet by mouth every 6 (six) hours as needed for Nausea and Vomiting (N/V). [facility] metoclopram karina HCl 10 mg tablet 3-0 1-10 00:00: 00 Yes [id number] 10mg Take 1 tablet by mouth every 6 (six) hours as needed for Nausea and Vomiting (N/V). [facility] metoclopram karina HCl 10 mg tablet 3-0 1-10 00:00: 00 Yes [id number] 10mg Take 1 tablet by mouth every 6 (six) hours as needed for Nausea and Vomiting (N/V). [facility] metoclopram karina HCl 10 mg tablet - 00:00: 00 Yes [id number] 10mg Take 1 tablet by mouth every 6 (six) hours as needed for Nausea and Vomiting (N/V). [facility] metoclopram karina HCl 10 mg tablet 05-27 00:00: 00 01-11 00:00 :00 No [id number] 10mg Take 1 tablet by mouth every 6 (six) hours as needed for Nausea and Vomiting (N/V). [facility] cefdinir 300 mg capsule 05-27 00:00: 00 06-11 05:59 :00 No [id number] 300mg Take 1 capsule by mouth every 12 (twelve) hours for 14 days. [facility] dicyclomine 20 mg tablet 05-27 00:00: 00 06-04 05:59 :00 No [id number] 20mg Take 1 tablet by mouth 4 (four) times daily for 7 days. [facility] ondansetron (ZOFRAN-ODT ) disintegrat ing tablet 4 mg 2021-05 17:30: 00 05-17 16:46 :00 No 4mg 4 mg, Oral, ONCE, 1 dose, On 05/17/22 at 1130, Routine [facility] ondansetron 4 mg disintegrat ing tablet 2021-05 00:00: 00 Yes [id number] 4mg Take 1 tablet by mouth every 8 (eight) hours as needed for Nausea and Vomiting (N/V). [facility] ondansetron 4 mg disintegrat ing tablet 2021-05 00:00: 00 Yes [id number] 4mg Take 1 tablet by mouth every 8 (eight) hours as needed for Nausea and Vomiting (N/V). [facility] ondansetron 4 mg disintegrat ing tablet 2021-05 00:00: 00 Yes [id number] 4mg Take 1 tablet by mouth every 8 (eight) hours as needed for Nausea and Vomiting (N/V). [facility] ondansetron 4 mg disintegrat ing tablet 2021-05 00:00: 00 Yes [id number] 4mg Take 1 tablet by mouth every 8 (eight) hours as needed for Nausea and Vomiting (N/V). [facility] ondansetron 4 mg disintegrat ing tablet 2021-05 00:00: 00 Yes [id number] 4mg Take 1 tablet by mouth every 8 (eight) hours as needed for Nausea and Vomiting (N/V). [facility] ondansetron 4 mg disintegrat ing tablet 2021-05 00:00: 00 Yes [id number] 4mg Take 1 tablet by mouth every 8 (eight) hours as needed for Nausea and Vomiting (N/V). [facility] ondansetron 4 mg disintegrat ing tablet 2021-05 00:00: 00 Yes [id number] 4mg Take 1 tablet by mouth every 8 (eight) hours as needed for Nausea and Vomiting (N/V). [facility] ondansetron 4 mg disintegrat ing tablet 2021-05 00:00: 00 Yes [id number] 4mg Take 1 tablet by mouth every 8 (eight) hours as needed for Nausea and Vomiting (N/V). [facility] ondansetron 4 mg disintegrat ing tablet 2021-05 00:00: 00 Yes [id number] 4mg Take 1 tablet by mouth every 8 (eight) hours as needed for Nausea and Vomiting (N/V). [facility] ondansetron 4 mg disintegrat ing tablet 2021-05 00:00: 00 Yes [id number] 4mg Take 1 tablet by mouth every 8 (eight) hours as needed for Nausea and Vomiting (N/V). [facility] ondansetron 4 mg disintegrat ing tablet 2021-05 00:00: 00 01-11 00:00 :00 No [id number] 4mg Take 1 tablet by mouth every 8 (eight) hours as needed for Nausea and Vomiting (N/V). [facility] sulfamethox azole-trime thoprim 800-160 mg per tablet 2021-05 00:00: 00 05-25 05:59 :00 No [id number] 1{tbl} Take 1 tablet by mouth every 12 (twelve) hours for 7 days. [facility] zolpidem (AMBIEN) tablet 5 mg 12-31 03:29: 35 12-31 18:03 :48 No 5mg 5 mg, Oral, QHSPRN, Starting on Thu12/30/21 at 2229, Until Thu12/31/21 at 1303, Routine, Insomnia [facility] FENTanyl PF (SUBLIMAZE (PF)) injection 50 mcg 12-31 00:37: 31 12-31 18:03 :48 No 50ug 50 mcg, Slow IV Push, Q4HPRN, Starting on Thu12/30/21 at 1937, Until Thu12/31/21 at 1303, Routine, Pain (scale 7-10) [facility] HYDROcodone -acetaminop hen (NORCO 5) 5-325 mg tablet 1 tablet 12-31 00:37: 07 12-31 18:03 :48 No 1{tbl} 1 tablet, Oral, Q6HPRN, Starting on Thu12/30/21 at 1937, Until Thu12/31/21 at 1303, Routine, Pain (scale 4-6) [facility] sulfamethox azole-trime thoprim (BACTRIM DS) 800-160 mg per tablet 12-31 00:00: 00 01-15 04:59 :00 No [id number] 1{tbl} Take 1 tablet by mouth in the morning and 1 tablet in the evening. Do all this for 14 days. [facility] HYDROcodone -acetaminop hen 5-325 mg tablet 12-31 00:00: 00 01-06 04:59 :00 No [id number] 1{tbl} Take 1 tablet by mouth every 6 (six) hours as needed for Pain (scale 7-10) for up to 5 days. Indication s: acute pain [facility] vancomycin 1,250 mg in NaCl 0.9% (NS) 250 mL VIAL-MATE IV piggyback 12-30 19:00: 00 12-31 18:03 :48 No 15mg/kg 1,250 mg (rounded from 1,327.5 mg = 15 mg/kg ?88.5 kg), IV Piggyback, Q8H ABX, 18 doses, First dose (after last modificati on) on Thu12/30/21 at 1400, Last dose on Thu01/05/22 at 0600, Administer over 90 Minutes, 250 mL
Reas on for Anti-Infec tive: Documented Infection< br>Documen steven Infection Site: Skin / Soft Tissue
Duration of Therapy: 7 days [facility] sodium chloride 0.9 % irrigation solution 12-30 16:01: 00 12-30 16:57 :41 No PRN, Starting on Thu12/30/21 at 1101, Until Thu12/30/21 at 1157, Intra-op [facility] bupivacaine (preserv free) 0.5% (SENSORCAIN E MPF) 0.5 % (5 mg/mL) injection 12-30 16:01: 00 12-30 16:57 :41 No PRN, Starting on Thu12/30/21 at 1101, Until Thu12/30/21 at 1157, Routine, Intra-op [facility] No known medications 12-30 09:25: 25 No No known medication s [facility] proMETHazin e (PHENERGAN) 25 mg in NaCl 0.9% (NS) 50 mL IV piggyback 12-29 16:08: 24 12-31 18:03 :48 No 25mg 25 mg, IV Piggyback, Q6HPRN, Starting on Thu12/29/21 at 1108, Until Thu12/31/21 at 1303, Routine, N/V alternatin g with Ondansetro n [facility] cefTRIAXone (ROCEPHIN) 1,000 mg in NaCl 0.9% (NS) 50 mL MINI-BAG 12-29 01:15: 00 12-31 18:03 :48 No 1000mg 1,000 mg, IV Piggyback, Q24H ABX, 7 doses, First dose on Thu12/28/21 at 2014, Last dose on Thu01/03/22 at 2014, Administer over 30 Minutes, 50 mL
Reas on for Anti-Infec tive: Documented Infection< br>Documen steven Infection Site: Skin / Soft Tissue
Duration of Therapy: 7 days [facility] enoxaparin (LOVENOX) injection 40 mg 12-28 22:00: 00 12-31 18:03 :48 No 40mg 40 mg, Subcutaneo us, DAILY, First dose on Thu12/28/21 at 1700, Until Discontinu ed, Routine [facility] ondansetron (ZOFRAN (PF)) injection 4 mg 12-28 21:04: 28 12-31 18:03 :48 No 4mg 4 mg, Slow IV Push, Q6HPRN, Starting on Thu12/28/21 at 1604, Until Thu12/31/21 at 1303, Routine, Nausea and Vomiting (N/V) [facility] acetaminoph en (TYLENOL) tablet 650 mg 12-28 21:04: 05 12-31 18:03 :48 No 650mg 650 mg, Oral, Q6HPRN, Starting on Thu12/28/21 at 1604, Until Thu12/31/21 at 1303, Routine, Pain (scale 1-3), Temp > 38.5 C [facility] phenazopyri dine 200 mg tablet 09-24 00:00: 00 12-28 00:00 :00 No [id number] 200mg Take 1 tablet by mouth 3 (three) times daily. [facility] ondansetron 4 mg disintegrat ing tablet 09-24 00:00: 00 12-28 00:00 :00 No [id number] 4mg Take 1 tablet by mouth every 8 (eight) hours as needed for Nausea and Vomiting (N/V). [facility] docusate 100 mg capsule 07-28 00:00: 00 12-28 00:00 :00 No [id number] 100mg Take 1 capsule by mouth every 12 (twelve) hours. [facility] HYDROcodone -acetaminop hen 5-325 mg tablet 07-28 00:00: 00 12-28 00:00 :00 No [id number] 1{tbl} Take 1 tablet by mouth every 6 (six) hours as needed for Pain (scale 7-10). Indication s: acute pain [facility] ibuprofen 600 mg tablet 07-28 00:00: 00 12-28 00:00 :00 No [id number] 600mg Take 1 tablet by mouth every 6 (six) hours as needed for Pain (scale 4-6). [facility] Immunizations Ordered Immunization Name Filled Immunization Name Date Status Comments Source Human Rabies Vaccine From Chicken Fibroblast Culture ([facility]) 2023-01-11 00:00:00 Completed [facility] Human Rabies Vaccine From Chicken Fibroblast Culture ([facility]) 2023-01-11 00:00:00 Completed [facility] Human Rabies Vaccine From Chicken Fibroblast Culture ([facility]) 2023-01-11 00:00:00 Completed [facility] TD, NOS 2021-11-22 00:00:00 Completed [facility] TD, NOS 2021-11-22 00:00:00 Completed [facility] Td 2021-11-22 00:00:00 Completed [facility] Td 2021-11-22 00:00:00 Completed [facility] TD, NOS 2021-11-22 00:00:00 Completed [facility] TD, NOS 2021-11-22 00:00:00 Completed [facility] TD, NOS 2021-11-22 00:00:00 Completed [facility] TD, NOS 2021-11-22 00:00:00 Completed [facility] TD, NOS 2021-11-22 00:00:00 Completed [facility] TD, NOS 2021-11-22 00:00:00 Completed [facility] TD, NOS 2021-11-22 00:00:00 Completed [facility] TD, NOS 2021-11-22 00:00:00 Completed [facility] TD, NOS 2021-11-22 00:00:00 Completed [facility] TD, NOS 2021-11-22 00:00:00 Completed [facility] Influenza Virus Vaccine Quad IM 3+ YRS 2014-03-24 00:00:00 Completed [facility] Influenza Virus Vaccine Quad IM 3+ YRS 2014-03-24 00:00:00 Completed [facility] Influenza Virus Vaccine Quad IM 3+ YRS 2014-03-24 00:00:00 Completed [facility] Influenza Virus Vaccine Quad IM 3+ YRS 2014-03-24 00:00:00 Completed [facility] Influenza Virus Vaccine Quad IM 3+ YRS 2014-03-24 00:00:00 Completed [facility] Influenza Virus Vaccine Quad IM 3+ YRS 2014-03-24 00:00:00 Completed [facility] Influenza Virus Vaccine Quad IM 3+ YRS 2014-03-24 00:00:00 Completed [facility] Influenza Virus Vaccine Quad IM 3+ YRS 2014-03-24 00:00:00 Completed [facility] Influenza Virus Vaccine Quad IM 3+ YRS 2014-03-24 00:00:00 Completed [facility] Influenza Virus Vaccine Quad IM 3+ YRS 2014-03-24 00:00:00 Completed [facility] Influenza Virus Vaccine Quad IM 3+ YRS 2014-03-24 00:00:00 Completed [facility] Influenza Virus Vaccine Quad IM 3+ YRS 2014-03-24 00:00:00 Completed [facility] Influenza Virus Vaccine Quad IM 3+ YRS 2014-03-24 00:00:00 Completed [facility] Influenza Virus Vaccine Quad IM 3+ YRS 2014-03-24 00:00:00 Completed [facility] Influenza Virus Vaccine Quad IM 3+ YRS Unknown Completed [facility] TD, NOS Unknown Completed [facility] Human Rabies Vaccine From Chicken Fibroblast Culture (RABAVERT) Unknown Completed [facility] Influenza Virus Vaccine Quad IM 3+ YRS Unknown Completed [facility] TD, NOS Unknown Completed [facility] Human Rabies Vaccine From Chicken Fibroblast Culture (RABAVERT) Unknown Completed [facility] Influenza Virus Vaccine Quad IM 3+ YRS Unknown Completed [facility] TD, NOS Unknown Completed [facility] Human Rabies Vaccine From Chicken Fibroblast Culture (RABAVERT) Unknown Completed [facility] Influenza Virus Vaccine Quad IM 3+ YRS Unknown Completed [facility] TD, NOS Unknown Completed [facility] Human Rabies Vaccine From Chicken Fibroblast Culture (RABAVERT) Unknown Completed [facility] Influenza Virus Vaccine Quad IM 3+ YRS Unknown Completed [facility] TD, NOS Unknown Completed [facility] Human Rabies Vaccine From Chicken Fibroblast Culture (RABAVERT) Unknown Completed [facility] Vital Signs Vital Name Observation Time Observation Value Comments S ource Systolic blood pressure 2023-02-10 22:39:42 110 mm[Hg] [facility] Diastolic blood pressure 2023-02-10 22:39:42 82 mm[Hg] [facility] Heart rate 2023-02-10 22:39:42 80 /min [facility] Body temperature 2023-02-10 22:39:42 36.5 Winter [facility] Respiratory rate 2023-02-10 22:39:42 16 /min [facility] Oxygen saturation in Arterial blood by Pulse oximetry 2023-02-10 22:39:06 100 /min [facility] Body height 2023-02-10 19:12:00 172.7 cm [facility] Body weight 2023-02-10 19:12:00 77.111 kg [facility] BMI 2023-02-10 19:12:00 25.85 kg/m2 [facility] Systolic blood pressure 2023-02-06 14:24:00 159 mm[Hg] [facility] Diastolic blood pressure 2023-02-06 14:24:00 96 mm[Hg] [facility] Heart rate 2023-02-06 14:24:00 96 /min [facility] Body height 2023-02-06 14:24:00 172.7 cm [facility] Body weight 2023-02-06 14:24:00 75.297 kg [facility] BMI 2023-02-06 14:24:00 25.24 kg/m2 [facility] Oxygen saturation in Arterial blood by Pulse oximetry 2023-02-06 14:24:00 99 /min [facility] Systolic blood pressure 2023-01-13 17:00:00 127 mm[Hg] [facility] Diastolic blood pressure 2023-01-13 17:00:00 83 mm[Hg] [facility] Heart rate 2023-01-13 17:00:00 83 /min [facility] Body temperature 2023-01-13 17:00:00 36.83 [place] [facility] Respiratory rate 2023-01-13 17:00:00 20 /min [facility] Oxygen saturation in Arterial blood by Pulse oximetry 2023-01-13 17:00:00 100 /min [facility] Body height 2023-01-12 01:12:00 172.7 cm [facility] Body weight 2023-01-12 01:12:00 83.915 kg [facility] BMI 2023-01-12 01:12:00 28.13 kg/m2 [facility] Systolic blood pressure 2023-01-11 21:00:00 128 mm[Hg] [facility] Diastolic blood pressure 2023-01-11 21:00:00 79 mm[Hg] [facility] Heart rate 2023-01-11 21:00:00 58 /min [facility] Respiratory rate 2023-01-11 21:00:00 18 /min [facility] Oxygen saturation in Arterial blood by Pulse oximetry 2023-01-11 21:00:00 98 /min [facility] Body temperature 2023-01-11 17:27:00 37 Winter [facility] Body height 2023-01-11 17:27:00 172.7 cm [facility] Body weight 2023-01-11 17:27:00 83.915 kg [facility] BMI 2023-01-11 17:27:00 28.13 kg/m2 [facility] Systolic blood pressure 2023-01-10 02:54:00 148 mm[Hg] [facility] Diastolic blood pressure 2023-01-10 02:54:00 94 mm[Hg] [facility] Heart rate 2023-01-10 02:54:00 94 /min Un[facility] Body temperature 2023-01-10 02:54:00 37.11 Winter [facility] Respiratory rate 2023-01-10 02:54:00 18 /min [facility] Body height 2023-01-10 02:54:00 172.7 cm [facility] Body weight 2023-01-10 02:54:00 80.287 kg [facility] BMI 2023-01-10 02:54:00 26.91 kg/m2 [facility] Oxygen saturation in Arterial blood by Pulse oximetry 2023-01-10 02:54:00 100 /min [facility] Systolic blood pressure 2022-12-10 17:30:00 124 mm[Hg] [facility] Diastolic blood pressure 2022-12-10 17:30:00 85 mm[Hg] [facility] Heart rate 2022-12-10 17:30:00 68 /min Un[facility] Respiratory rate 2022-12-10 17:30:00 16 /min [facility] Oxygen saturation in Arterial blood by Pulse oximetry 2022-12-10 17:30:00 98 /min [facility] Body temperature 2022-12-10 16:20:00 36.72 Iwnter [facility] Body height 2022-12-10 16:20:00 172.7 cm [facility] Body weight 2022-12-10 16:20:00 86.183 kg [facility] BMI 2022-12-10 16:20:00 28.89 kg/m2 [facility] Systolic blood pressure 2022-10-16 13:00:00 112 mm[Hg] [facility] Diastolic blood pressure 2022-10-16 13:00:00 64 mm[Hg] [facility] Heart rate 2022-10-16 13:00:00 50 /min Un[facility] Respiratory rate 2022-10-16 13:00:00 16 /min [facility] Oxygen saturation in Arterial blood by Pulse oximetry 2022-10-16 13:00:00 96 /min [facility] Body temperature 2022-10-16 06:11:00 37 [facility] Body height 2022-10-16 06:11:00 172.7 cm [facility] Body weight 2022-10-16 06:11:00 87.091 kg [facility] BMI 2022-10-16 06:11:00 29.19 kg/m2 [facility] Systolic blood pressure 2022-09-10 20:45:00 139 mm[Hg] [facility] Diastolic blood pressure 2022-09-10 20:45:00 90 mm[Hg] [facility] Heart rate 2022-09-10 20:45:00 58 /min [facility] Respiratory rate 2022-09-10 20:45:00 16 /min [facility] Oxygen saturation in Arterial blood by Pulse oximetry 2022-09-10 20:45:00 98 /min [facility] Body temperature 2022-09-10 17:22:00 37 [facility] Body weight 2022-09-10 17:22:00 91.173 kg [facility] BMI 2022-09-10 17:22:00 30.56 kg/m2 [facility] Systolic blood pressure 2022-07-29 01:32:42 133 mm[Hg] [facility] Diastolic blood pressure 2022-07-29 01:32:42 86 mm[Hg] [facility] Heart rate 2022-07-29 01:32:42 78 /min [facility] Respiratory rate 2022-07-29 01:32:42 16 /min [facility] Oxygen saturation in Arterial blood by Pulse oximetry 2022-07-29 01:32:42 96 /min [facility] Body temperature 2022-07-28 22:57:00 37 [facility] Body weight 2022-07-28 22:57:00 91.173 kg [facility] BMI 2022-07-28 22:57:00 30.56 kg/m2 [facility] Systolic blood pressure 2022-07-15 21:30:00 115 mm[Hg] [facility] Diastolic blood pressure 2022-07-15 21:30:00 61 mm[Hg] [facility] Heart rate 2022-07-15 21:30:00 57 /min Un[facility] Respiratory rate 2022-07-15 21:30:00 15 /min [facility] Oxygen saturation in Arterial blood by Pulse oximetry 2022-07-15 21:30:00 93 /min [facility] Body temperature 2022-07-15 16:01:00 36.89 Winter [facility] Body height 2022-07-15 15:34:00 172.7 cm [facility] Body weight 2022-07-15 15:34:00 91.173 kg [facility] BMI 2022-07-15 15:34:00 30.56 kg/m2 [facility] Systolic blood pressure 2022-05-27 19:00:00 131 mm[Hg] [facility] Diastolic blood pressure 2022-05-27 19:00:00 80 mm[Hg] [facility] Heart rate 2022-05-27 19:00:00 62 /min Un[facility] Respiratory rate 2022-05-27 19:00:00 14 /min [facility] Oxygen saturation in Arterial blood by Pulse oximetry 2022-05-27 19:00:00 100 /min [facility] Body temperature 2022-05-27 15:02:00 37.22 Winter [facility] Body height 2022-05-27 15:02:00 172.7 cm [facility] Body weight 2022-05-27 15:02:00 92.987 kg [facility] BMI 2022-05-27 15:02:00 31.17 kg/m2 [facility] Systolic blood pressure 2022-05-17 15:55:00 146 mm[Hg] [facility] Diastolic blood pressure 2022-05-17 15:55:00 96 mm[Hg] [facility] Heart rate 2022-05-17 15:55:00 78 /min [facility] Body temperature 2022-05-17 15:55:00 37.39 Winter [facility] Respiratory rate 2022-05-17 15:55:00 16 /min [facility] Body height 2022-05-17 15:55:00 172.7 cm [facility] Body weight 2022-05-17 15:55:00 86.637 kg [facility] BMI 2022-05-17 15:55:00 29.04 kg/m2 [facility] Oxygen saturation in Arterial blood by Pulse oximetry 2022-05-17 15:55:00 98 /min [facility] Systolic blood pressure 2021-12-30 12:27:00 129 mm[Hg] [facility] Diastolic blood pressure 2021-12-30 12:27:00 74 mm[Hg] [facility] Heart rate 2021-12-30 12:27:00 57 /min [facility] Body temperature 2021-12-30 12:27:00 36.17 Winter [facility] Respiratory rate 2021-12-30 12:27:00 16 /min [facility] Oxygen saturation in Arterial blood by Pulse oximetry 2021-12-30 12:27:00 96 /min [facility] Body weight 2021-12-30 10:01:00 90.493 kg [facility] BMI 2021-12-30 10:01:00 29.16 kg/m2 [facility] Body height 2021-12-28 16:24:00 172.7 cm [facility] Procedures Procedure Date / Time Performed Performing Clinician Source EXTERNAL PROVIDER RECORDS 2023-02-11 05:01:00 Do ctor Unassigned, Amanda [facility] COMP. METABOLIC PANEL (20322) 2023-02-10 19:51:00 Yeni Menon [facility] CBC WITH DIFF 2023-02-10 19:51:00 Yeni Menon [facility] URINALYSIS 2023-02-10 19:51:00 Yeni Menon [facility] CONSENT/REFUSAL FOR DIAGNOSIS AND TREATMENT 2023-02-10 19:02:05 Doctor Unassigned, Amanda [facility] ASSIGNMENT OF BENEFITS 2023-02-06 14:15:25 Marlene r Unassigned, Amanda [facility] BASIC METABOLIC PANEL (NA, K, CL, CO2, GLUCOSE, BUN, CREATININE, CA) 2023-01-13 09:00:00 Saniya Royal [facility] CBC WITHOUT DIFF 2023-01-13 09:00:00 Saniya Royal [facility] VANCOMYCIN TROUGH 2023-01-13 02:08:00 Bigg Benitez Concepcion [facility] BASIC METABOLIC PANEL (NA, K, CL, CO2, GLUCOSE, BUN, CREATININE, CA) 2023-01-12 10:08:00 Iram Benitez [facility] CBC WITHOUT DIFF 2023-01-12 10:08:00 Saniya Royal [facility] PROTHROMBIN TIME / INR 2023-01-12 10:08:00 Iram Benitez [facility] ACTIVATED PARTIAL THRMPLAS TRISTAN 2023-01-12 10:08:00 Iram Benitez [facility] HB ABO GROUPING 2023-01-12 10:08:00 Elvira Benitez Concepcion [facility] C-REACTIVE PROTEIN 2023-01-12 00:45:00 Kole Can [facility] SEDIMENTATION RATE 2023-01-12 00:45:00 Kole Can Gomez [facility] CBC WITH DIFF 2023-01-12 00:45:00 Paula Can [facility] XR CHEST 2 VW 2023-01-11 23:20:22 Elvira Benitez Concepcion [facility] POCT TEST 2023-01-11 19:19:00 Rene Rendon [facility] COMP. METABOLIC PANEL ([id number]) 2023-01-11 18:24:00 Irvin Rendon [facility] CBC WITH DIFF 2023-01-11 18:24:00 [facility]+ VW LEFT 2023-01-11 17:51:27 Irvin Rendon [facility] CONSENT/REFUSAL FOR DIAGNOSIS AND TREATMENT 2023-01-11 17:26:59 Doctor Unassigned, Amanda [facility] CONSENT/REFUSAL FOR DIAGNOSIS AND TREATMENT 2023-01-10 02:36:48 Doctor Unassigned, Amanda [facility] POCT TEST 2022-12-10 16:29:00 Mariela Cantu ra [facility] URINALYSIS 2022-12-10 16:28:00 Drea Cantu Un [facility] CONSENT/REFUSAL FOR DIAGNOSIS AND TREATMENT 2022-12-10 16:14:46 Doctor Unassigned, Amanda [facility] XR ABDOMEN ACUTE SERIES 2022-10-16 13:16:19 Do britt Glaan [facility] US OVARY TORSION 2022-10-16 10:38:54 [facility] 2022-10-16 06:39:00 Cheyenne Saenz [facility] LIPASE 2022-10-16 06:37:00 Cheyenne Saenz [facility] COMP. METABOLIC PANEL ([id number]) 2022-10-16 06:37:00 Cheyenne Saenz [facility] CBC WITH DIFF 2022-10-16 06:37:00 Cheyenne Saenz [facility] URINALYSIS 2022-10-16 06:37:00 Cheyenne Saenz [facility] NOTICE OF PRIVACY PRACTICES 2022-10-16 05:58:42 Doctor Unassigned, Amanda [facility] CONSENT/REFUSAL FOR DIAGNOSIS AND TREATMENT 2022-10-16 05:57:27 Doctor Unassigned, Amanda [facility] URINE DRUG (IMMUNOASSAY) - COMPREHENSIVE DRUG SCREEN 2022-09-10 17:55:00 Alejandro Hernandez [facility] TEST, SERUM 2022-09-10 17:52:00 Alejandro Hernandez [facility] COMP. METABOLIC PANEL ([id number]) 2022-09-10 17:52:00 Alejandro Hernandez [facility] CBC WITH DIFF 2022-09-10 17:52:00 [facility] URINALYSIS 2022-09-10 17:52:00 [facility]adro [facility] CONSENT/REFUSAL FOR DIAGNOSIS AND TREATMENT 2022-09-10 17:15:59 Doctor Unassigned, Amanda [facility] CONSENT/REFUSAL FOR DIAGNOSIS AND TREATMENT 2022-07-28 22:52:51 Doctor Unassigned, Amanda [facility] TROPONIN I 2022-07-15 19:17:00 [facility] D-DIMER 2022-07-15 17:34:00 [facility] POCT TEST 2022-07-15 16:50:00 Carlitos Trevino [facility] LIPASE 2022-07-15 16:39:00 Jeremy Trevino [facility] TROPONIN I 2022-07-15 16:39:00 [facility] COMP. METABOLIC PANEL ([id number]) 2022-07-15 16:39:00 Jeremy Trevino [facility] CBC WITH DIFF 2022-07-15 16:39:00 Jeremy Trevino [facility] CONSENT/REFUSAL FOR DIAGNOSIS AND TREATMENT 2022-07-15 15:27:48 Doctor Unassigned, Amanda [facility] CT ABDOMEN PELVIS W CONTRAST 2022-05-27 17:11:56 Amy Oglesby [facility] LIPASE 2022-05-27 15:50:00 IbAmy iniguez U [facility] MAGNESIUM 2022-05-27 15:50:00 IbikAmy mehta F [facility] COMP. METABOLIC PANEL ([id number]) 2022-05-27 15:50:00 Amy Oglesby [facility] CBC WITH DIFF 2022-05-27 15:50:00 IbAmy iniguez [facility] URINALYSIS 2022-05-27 15:50:00 Amy Oglesby [facility] POCT TEST 2022-05-27 15:50:00 Di Oglesby [facility] CONSENT/REFUSAL FOR DIAGNOSIS AND TREATMENT 2022-05-27 14:56:31 Doctor Unassigned, Amanda [facility] RAPID INFLUENZA A/B 2022-05-17 16:39:00 Paulina Echeverria [facility] COVID-19 (ID NOW RAPID TESTING) 2022-05-17 16:39:00 Paulina Echeverria [facility] CONSENT/REFUSAL FOR DIAGNOSIS AND TREATMENT 2022-05-17 15:44:58 Doctor Unassigned, Amanda [facility] CBC WITH DIFF 2021-12-31 10:28:00 Meryl Dobson [facility] ASPIRATE OR ABSCESS CULTURE(AEROBIC/ANAEROBIC ) 2021-12-30 15:53:00 Arcadio Phipps [facility] INCISION AND DRAINAGE OF ABSCESS 2021-12-30 15:14:00 Arcadio Phipps [facility] BASIC METABOLIC PANEL (NA, K, CL, CO2, GLUCOSE, BUN, CREATININE, CA) 2021-12-30 08:25:00 Cheyenne Darby [facility] VANCOMYCIN TROUGH 2021-12-30 08:25:00 eBre Whatley [facility] CBC WITH DIFF 2021-12-30 08:25:00 Cheyenne Darby [facility] BASIC METABOLIC PANEL (NA, K, CL, CO2, GLUCOSE, BUN, CREATININE, CA) 2021-12-29 08:14:00 Les Ho [facility] CBC WITH DIFF 2021-12-29 08:14:00 Les Ho [facility] COVID-19 (ID NOW RAPID TESTING) 2021-12-28 19:00:00 Ros Galan [facility] LAB ONLY COVID INTERPRETATION 2021-12-28 19:00:00 Ros Galan [facility] CT PELVIS W CONTRAST 2021-12-28 18:15:00 Mary Galan [facility] POCT TEST 2021-12-28 17:27:00 Meenu Galan [facility] URINALYSIS 2021-12-28 17:24:00 Ros Galan [facility] URINE CULTURE 2021-12-28 17:24:00 Ros Galan [facility] BLOOD CULTURE SCREEN 2021-12-28 17:09:00 Mary Galan [facility] COMP. METABOLIC PANEL ([id number]) 2021-12-28 17:09:00 Ros Galan [facility] CBC WITH DIFF 2021-12-28 17:09:00 Ros Galan [facility] GLYCOSYLATED HEMOGLOBIN (A1C) 2021-12-28 17:09:00 Les Ho [facility] LACTIC ACID WHOLE BLOOD 2021-12-28 17:08:00 Do britt Galan [facility] BLOOD CULTURE SCREEN 2021-12-28 17:01:00 Mary Galan [facility] CONSENT/REFUSAL FOR DIAGNOSIS AND TREATMENT 2021-12-28 16:13:34 Doctor Unassigned, Amanda [facility] Encounters Start Date/Time End Date/Time Encounter Type Admission Type Attending [facility] Care Facility Care Department Encounter ID Source 2023-06-30 13:00:00 2023-06-30 13:00:00 Outpatient NICOL DRAKE [facility] [id number] [facility] 2023-02-27 09:00:00 2023-02-27 09:00:00 Outpatient MELE VELASQUEZ CRAIG [facility] [id number] [facility] 2023-02-11 00:00:00 2023-02-11 00:00:00 Orders Only Doctor Unassigned, Amanda [facility] 1.2.840.114 350.1.13.10 4.2.7.2.686 [id number] [facility] 2023-02-10 14:14:00 2023-02-10 18:08:00 Emergency X Yeni MENON [facility] [id number] [facility] 2023-02-10 14:14:00 2023-02-10 18:08:00 Emergency Yeni Menon [facility] 1.2840.114 350.1.13.10 4.2.7.2.686 [id number] [facility] 2023-02-06 09:15:00 2023-02-06 09:59:26 Outpatient R MELE SORIA CRAIG [facility] [id number] [facility] 2023-02-06 09:15:00 2023-02-06 09:59:26 Office Visit Mele Soria [facility] 1.2840.114 350.1.13.10 4.2.7.2.686 [id number] [facility] 2023-02-06 00:00:00 2023-02-06 00:00:00 Orders Only Doctor Unassigned, Amanda [facility] 1.2840.114 350.1.13.10 4.2.7.2.686 [id number] [facility] 2023-01-14 00:00:00 2023-01-14 00:00:00 Transition of Care Elayne Romo [facility] 1.2840.114 350.1.13.10 4.2.7.2.686 [id number] [facility] 2023-01-11 17:23:00 2023-01-13 18:25:00 Inpatient X BRIA JULIEN [facility] [id number] [facility] 2023-01-11 17:23:00 2023-01-13 18:25:00 [facility] 1.2840.114 350.1.13.10 4.2.7.2.686 [id number] [facility] 2023-01-11 12:27:00 2023-01-11 16:41:00 Emergency X IRVIN RENDON [facility] [id number] [facility] 2023-01-11 12:27:00 2023-01-11 16:41:00 Emergency Irvin Rendon [facility] 1.2.840.114 350.1.13.10 4.2.7.2.686 [id number] [facility] 2023-01-10 13:24:21 2023-01-10 13:24:21 Outpatient [facility] [id number] Brando Kee 2023-01-09 21:55:00 2023-01-10 01:06:00 Emergency X LUNA REDMAN [facility] [id number] [facility] 2023-01-09 21:55:00 2023-01-10 01:06:00 Emergency Luna Redman [facility] 1.2.840.114 350.1.13.10 4.2.7.2.686 [id number] [facility] 2022-12-24 13:54:42 2022-12-24 13:54:42 Outpatient [facility] [id number] Brando Kee 2022-12-10 11:20:00 2022-12-10 12:54:00 Emergency X PEPEMARIELARA [facility] [id number] [facility] 2022-12-10 11:20:00 2022-12-10 12:54:00 Emergency Drea Cantu Varun [facility] 1.2.840.114 350.1.13.10 4.2.7.2.686 [id number] [facility] 2022-11-25 17:39:40 2022-11-25 17:39:40 Outpatient SFA [facility] [id number] Brando Kee 2022-10-16 15:00:00 2022-10-16 15:00:00 Outpatient TYSHAWN HINOJOSA [facility] [id number] [facility] 2022-10-16 01:14:00 2022-10-16 09:04:00 Emergency X ROS GALAN [facility] [id number] [facility] 2022-10-16 01:14:00 2022-10-16 09:04:00 Emergency Cheyenne Saenz Adama Ros [facility] 1.2.840.114 350.1.13.10 4.2.7.2.686 [id number] [facility] 2022-09-10 12:23:00 2022-09-10 16:07:00 Emergency X ANKITALEJANDRO NUNEZ [facility] [id number] [facility] 2022-09-10 12:23:00 2022-09-10 16:07:00 Emergency Sarah Hernandezhailey Bond [facility] 1.2.840.114 350.1.13.10 4.2.7.2.686 [id number] [facility] 2022-08-14 15:00:00 2022-08-14 15:00:00 Outpatient Dewayne RAYODAMIENNAKUL [facility] [id number] [facility] 2022-08-04 15:08:32 2022-08-04 15:08:32 Outpatient SFA [facility] [id number] Brandoaleah Kee 2022-08-01 10:28:54 2022-08-01 10:28:54 Outpatient [facility] [id number] Brando F Chilango 2022-07-28 17:58:00 2022-07-28 20:41:00 Emergency X Yeni MENON [facility] [id number] [facility] 2022-07-28 17:58:00 2022-07-28 20:41:00 Emergency Yeni Menon [facility] 1.2.840.114 350.1.13.10 4.2.7.2.686 [id number] [facility] 2022-07-16 00:00:00 2022-07-16 00:00:00 Telephone Donato Rayo [facility] 1.2.840.114 350.1.13.10 4.2.7.2.686 [id number] [facility] 2022-07-15 09:35:00 2022-07-15 16:43:00 [facility] [id number] 2022-07-15 09:35:00 2022-07-15 16:43:00 Emergency Jeremy Trevino [facility] 1.2.840.114 350.1.13.10 4.2.7.2.686 [id number] [facility] 2022-05-27 09:03:00 2022-05-27 13:19:00 Emergency X AMY OGLESBY [facility] [id number] [facility] 2022-05-27 09:03:00 2022-05-27 13:19:00 Emergency Amy Oglesby F [facility] 1.2.840.114 350.1.13.10 4.2.7.2.686 [id number] [facility] 2022-05-17 09:50:00 2022-05-17 11:48:00 Emergency X PAULINA ECHEVERRIA [facility] [id number] [facility] 2022-05-17 09:50:00 2022-05-17 11:48:00 Emergency Paulina Echeverria E [facility] 1.2.840.114 350.1.13.10 4.2.7.2.686 [id number] [facility] 2022-03-31 09:00:00 2022-03-31 09:00:00 Outpatient NATTY NUNEZ [facility] [id number] [facility] 2022-01-14 00:00:00 2022-01-14 00:00:00 Telephone Natty Lamb [facility] 1..840.114 350.1.13.10 4.2.7.2.686 [id number] [facility] 2021-12-28 11:25:00 2021-12-31 10:55:00 Outpatient [facility] [id number] [facility] 2021-12-28 11:25:00 2021-12-31 10:55:00 Hospital Encounter Ros Galan [facility] 1..840.114 350.1.13.10 4.2.7.2.686 [id number] [facility] 2021-12-28 11:25:00 2021-12-31 10:55:00 Outpatient X DANIELABALAJI ALLISONLANI [facility] [id number] [facility] 2021-12-30 09:35:00 2021-12-30 10:50:00 Surgery Arcadio Phipps [facility] 1..840.114 350.1.13.10 4.2.7.2.686 [id number] [facility] 2021-11-22 19:55:00 2021-11-22 21:28:00 Emergency X LUNA REDMAN [facility] [id number] [facility] 2021-11-22 19:55:00 2021-11-22 21:28:00 Emergency Luna Redman [facility] 1..840.114 350.1.13.10 4.2.7.2.686 [id number] [facility] 2021-09-24 08:11:00 2021-09-24 10:32:00 Emergency X DAVID GONZALEZ [facility] [id number] [facility] 2021-09-24 08:11:00 2021-09-24 10:32:00 Emergency David Gonzalez [facility] 1.2840.114 350.1.13.10 4.2.7.2.686 [id number] [facility] 2021-09-24 08:11:00 2021-09-24 10:32:00 Emergency X DAVID GONZALEZ [facility] [id number] [facility] 2021-08-22 10:31:00 2021-08-22 12:46:00 Emergency X OLIVER HARP [facility] [id number] [facility] 2021-08-22 10:31:00 2021-08-22 12:46:00 Emergency Oliver Harp [facility] 1.2840.114 350.1.13.10 4.2.7.2.686 [id number] [facility] 2021-08-22 10:31:00 2021-08-22 12:46:00 Emergency X [facility] ERT [id number] [facility] 2021-08-15 15:00:00 2021-08-15 15:00:00 Office Visit Pgy3 Tory Campbell [facility] 1..114 350.1.13.10 4.2.7.2.686 [id number] [facility] 2021-08-15 15:00:00 2021-08-15 13:23:28 Outpatient R TORY CAMPBELL [facility] [place] [id number] [facility] 2021-08-05 00:00:00 2021-08-05 00:00:00 Telephone Stephanie Graham [facility] 1..114 350.1.13.10 4.2.7.2.686 [id number] [facility] 2021-07-30 00:00:00 2021-07-30 00:00:00 Transition of Care Kaylene Munguia 1.2.840.114 350.1.13.10 4.2.7.2.686 [id number] [facility] 2021-07-27 20:39:00 2021-07-28 15:40:00 Hospital Encounter [facility] 1.2.840.114 350.1.13.10 4.2.7.2.686 [id number] [facility] 2021-07-28 00:00:00 2021-07-28 03:44:00 Surgery [facility] 1.2840.114 350.1.13.10 4.2.7.2.686 [id number] [facility] 2021-07-27 11:44:00 2021-07-27 19:32:00 Emergency X CHEYENNE SAENZ [facility] ERT [id number] [facility] 2021-07-27 11:44:00 2021-07-27 19:32:00 Emergency X CHEYENNE SAENZ [facility] ERT [id number] [facility] 2021-07-27 11:44:00 2021-07-27 19:32:00 Emergency Cheyenne Saenz [facility] 1.2840.114 350.1.13.10 4.2.7.2.686 [id number] [facility] 2021-07-27 11:44:00 2021-07-27 19:32:00 Emergency X CHEYENNE SAENZ [facility] ERT [id number] [facility] 2021-06-16 10:22:00 2021-06-16 12:20:00 Emergency Lila Snyder [facility] 1.2840.114 350.1.13.10 4.2.7.2.686 [id number] [facility] 2021-06-16 10:22:00 2021-06-16 12:20:00 Emergency X LILA SNYDER [facility] ERT [id number] [facility] Results Test Description Test Time Test Comments Results Result Co mments Source [facility] WITHOUT [id number] 10:30:13* Test Item Value Reference Range Interpretation Comme nts WBC (test code = 6690-2) 4.90 See_Comment [Automated message] The system which generated this result transmitted reference range: 4.30 - 11.10 10*3/?L. The reference range was not used to interpret this result as normal/abnormal. RBC (test code = 789-8) 3.20 See_Comment L [Automated message] The system which generated this result transmitted reference range: 3.93 - 5.25 10*6/?L. The reference range was not used to interpret this result as normal/abnormal. HGB (test code = 718-7) 10.9 g/dL 11.6-15.0 L HCT (test code = 4544-3) 31.7 % 35.7-45.2 L MCH (test code = 785-6) 34.1 pg 25.9-32.8 H MCV (test code = 787-2) 99.1 fL 80.6-95.5 H MCHC (test code = 786-4) 34.4 g/dL 31.6-35.1 PLT (test code = 777-3) 171 See_Comment [Automated message] The system which generated this result transmitted reference range: 166 - 358 10*3/?L. The reference range was not used to interpret this result as normal/abnormal. MPV (test code = 76963-8) 9.2 fL 9.5-12.9 L RDW-CV (test code = 788-0) 11.9 % 12.0-15.5 L RDW-SD (test code = 18845-4) 43.2 fL 39.0-49.9 NRBC x10^3 (test code = 1280404311) See_Comment [Automated messa ge] The system which generated this result transmitted reference range: 10*3/?L. The reference range was not used to interpret this result as normal/abnormal. NRBC/100 WBC (test code = 6917751194) 0.0 See_Comment [Automated [employer] ge] The system which generated this result transmitted reference range: 0.0 - 10.0 /100 WBCs. The reference range was not used to interpret this result as normal/abnormal. IPF % (test code = 5832635022) Lab Interpretation (test code = 32398-4) Abnormal [facility] Center[facility] Trough Level - Draw within 30 minutes prior to 4TH dose.2023-01-13 03:53:25* Test Item Value Reference Range Interpretation Comme nts VANCO TROUGH (test code = 6570901792) 16.0 ug/mL 10.0-20.0 GABBY (test code = GABBY) Toxic Range: ?>20 ug/mL 15-20 ug/mL is recommended for severe infection or when Vancomycin JUAN ANTONIO is greater than or equal to 2. Lab Interpretation (test code = 73370-9) Normal [facility] CenterC-REACTIVE [id number] 15:22:23* Test Item Value Reference Range Interpretation Comme nts CRP (test code = 8399608326) 0.2 mg/dL <=0.8 Lab Interpretation (test cod e = 00327-1) Normal [facility] METABOLIC PANEL (NA, K, CL, CO2, GLUCOSE, BUN, CREATININE, CA)2023-01-12 10:52:28* Test Item Value Reference Range Interpretation Comme nts NA (test code = 5906620317) 137 mmol/L 135-145 K (test code = 1664417075) 3.8 mmol/L 3.5-5.0 CL (test code = 9883171067) 105 mmol/L 98-108 CO2 TOTAL (test code = 9368827618) 23 mmol/L 23-31 AGAP (test code = 5442755953) 9 2-16 BUN (test code = 6750629382) 14 mg/dL 7-23 GLUCOSE (test code = 2026107420) 90 mg/dL 70-110 CREATININE (test code = 4131788702) 0.50 mg/dL 0.50-1.04 CALCIUM (test code = 7786628003) 7.9 mg/dL 8.6-10.6 L eGFR (test code = 6667678340) 138.1 mL/min/1.73m2 GABBY (test code = GABBY) Association of Glomerular Filtration Rate (GFR) and Staging of Kidney Disease* + --+ --+ ------+| GFR (mL/min/1.73 m2) ?| With Kidney Damage ?| ?Without Kidney Damage+ --------+ --------+ +| ?>90 ?| ?Stage one ?| ? Normal ?+ ---+ ---+ -------+| ?60-89 ?| ?Stage two ?| ? Decreased GFR ? + --+ --+ ------+| ?30-59 ?| ?Stage three ?| ? Stage three ? + --+ --+ ------+| ?15-29 ?| ?Stage four ? | ? Stage four ?+ ---+ ---+ -------+| ?<15 (or dialysis) ? ?| ?Stage five ? | ? Stage five ?+ ---+ ---+ -------+ *Each stage assumes the associated GFR level has been in effect for at least three months. ?Stages 1 to 5, with or without kidney disease, indicate chronic kidney disease. Notes: Determination of stages one and two (with eGFR >59mL/min/1.73 m2) requires estimation of kidney damage for at least three months as defined by structural or functional abnormalities of the kidney, manifested by either:Pathological abnormalities or Markers of kidney damage (including abnormalities in the composition of the blood or urine or abnormalities in imaging tests). Lab Interpretation (test code = 44863-3) Abnormal [facility] CenteraPTT2023-08-28 10:34:44* Test Item Value Reference Range Interpretation [facility] APTT Patient (test code = 3173-2) 28 See_Comment [Automated [employer]] The system which generated this result transmitted reference range: 26 - 36 Seconds. The reference range was not used to interpret this result as normal/abnormal. Lab Interpretation (test code = 71128-1) Normal [facility] CenterProthrombin Time / [id number] 10:34:44* Test Item Value Reference Range Interpretation [facility] PROTIME PATIENT (test code = 5964-2) 11.1 See_Comment [Footbalistic] The system which generated this result transmitted reference range: 10.1 - 12.6 Seconds. The reference range was not used to interpret this result as normal/abnormal. INR (test code = 6301-6) 1.0 Normal INR <1.1; Warfarin Therapeutic range 2.0 to 3.0 or 2.5 to 3.5, depending upon the indications. Lab Interpretation (test code = 66378-9) Normal [facility] WITHOUT [id number] 10:34:44* Test Item Value Reference Range Interpretation Comme nts WBC (test code = 6690-2) 4.91 See_Comment [Automated message] The system which generated this result transmitted reference range: 4.30 - 11.10 10*3/?L. The reference range was not used to interpret this result as normal/abnormal. RBC (test code = 789-8) 3.34 See_Comment L [Automated message] The system which generated this result transmitted reference range: 3.93 - 5.25 10*6/?L. The reference range was not used to interpret this result as normal/abnormal. HGB (test code = 718-7) 11.3 g/dL 11.6-15.0 L HCT (test code = 4544-3) 33.5 % 35.7-45.2 L MCH (test code = 785-6) 33.8 pg 25.9-32.8 H MCV (test code = 787-2) 100.3 fL 80.6-95.5 H MCHC (test code = 786-4) 33.7 g/dL 31.6-35.1 PLT (test code = 777-3) 183 See_Comment [Automated message] The system which generated this result transmitted reference range: 166 - 358 10*3/?L. The reference range was not used to interpret this result as normal/abnormal. MPV (test code = 24149-3) 9.1 fL 9.5-12.9 L RDW-CV (test code = 788-0) 12.0 % 12.0-15.5 RDW-SD (test code = 60781-5) 44.6 fL 39.0-49.9 NRBC x10^3 (test code = 9342979612) See_Comment [Automated messa ge] The system which generated this result transmitted reference range: 10*3/?L. The reference range was not used to interpret this result as normal/abnormal. NRBC/100 WBC (test code = 2989387390) 0.0 See_Comment [Automated messa ge] The system which generated this result transmitted reference range: 0.0 - 10.0 /100 WBCs. The reference range was not used to interpret this result as normal/abnormal. IPF % (test code = 7616323232) Lab Interpretation (test code = 94645-4) Abnormal [facility] CenterType and Screen - ONCE [id number] 10:21:00* Test Item Value Reference Range Interpretation Comme nts ABO & RH (test code = 20) O POSITIVE IAT (test code = 1185) Negative [facility] CenterSEDIMENTATION [id number] 01:37:56* Test Item Value Reference Range Interpretation Comme nts ESR (test code = 74354-5) 17 See_Comment [Automated message] The system which generated this result transmitted reference range: 2 - 30 mm/HR. The reference range was not used to interpret this result as normal/abnormal. Lab Interpretation (test code = 35992-3) Normal [facility] CenterCBC WITH [id number] 00:56:58* Test Item Value Reference Range Interpretation Comme nts WBC (test code = 6690-2) 5.80 See_Comment [Automated messa ge] The system which generated this result transmitted reference range: 4.30 - 11.10 10*3/?L. The reference range was not used to interpret this result as normal/abnormal. RBC (test code = 789-8) 3.52 See_Comment L [Automated messa ge] The system which generated this result transmitted reference range: 3.93 - 5.25 10*6/?L. The reference range was not used to interpret this result as normal/abnormal. HGB (test code = 718-7) 12.2 g/dL 11.6-15.0 HCT (test code = 4544-3) 36.7 % 35.7-45.2 MCV (test code = 787-2) 104.3 fL 80.6-95.5 H MCH (test code = 785-6) 34.7 pg 25.9-32.8 H MCHC (test code = 786-4) 33.2 g/dL 31.6-35.1 RDW-SD (test code = 51483-3) 46.5 fL 39.0-49.9 RDW-CV (test code = 788-0) 12.1 % 12.0-15.5 PLT (test code = 777-3) 207 See_Comment [Automated [employer] ge] The system which generated this result transmitted reference range: 166 - 358 10*3/?L. The reference range was not used to interpret this result as normal/abnormal. MPV (test code = 36947-5) 9.3 fL 9.5-12.9 L NRBC/100 WBC (test code = 6427924028) 0.0 See_Comment [Automated Babble ssage] The system which generated this result transmitted reference range: 0.0 - 10.0 /100 WBCs. The reference range was not used to interpret this result as normal/abnormal. NRBC x10^3 (test code = 7977665886) See_Comment [Automated [employer] ge] The system which generated this result transmitted reference range: 10*3/?L. The reference range was not used to interpret this result as normal/abnormal. GRAN MAT (NEUT) % (test code = 770-8) 69.3 % IMM GRAN % (test code = 0411104802) 0.20 % LYMPH % (test code = 736-9) 22.8 % MONO % (test code = 5905-5) 5.5 % EOS % (test code = 713-8) 1.7 % BASO % (test code = 706-2) 0.5 % GRAN MAT x10^3(ANC) (test code = 1332023741) 4.02 10*3/uL 1.88-7.09 IMM GRAN x10^3 (test code = 6960570418) 0.00-0.06 LYMPH x10^3 (test code = 731-0) 1.32 10*3/uL 1.32-3.29 MONO x10^3 (test code = 742-7) 0.32 10*3/uL 0.33-0.92 L EOS x10^3 (test code = 711-2) 0.10 10*3/uL 0.03-0.39 BASO x10^3 (test code = 704-7) 0.03 10*3/uL 0.01-0.07 Lab Interpretation (test code = 06774-9) Abnormal [facility] CenterPOCT [id number] 19:19:00* Test Item Value Reference Range Interpretation Comme nts POCT PREG (test code = 1605) Negative On board controls acceptable with C Line (test code = 3574) Yes POCT PREG LOT # (test code = 3575) [id number] POCT PREG TEST DATE ( test code = 3576) 05/20/2024 Lab Interpretation (test cod e = 07589-3) Normal [facility] CenterCOM. METABOLIC PANEL (05629)2023-01-11 19:05:05* Test Item Value Reference Range Interpretation Comme nts NA (test code = 6581115707) 140 mmol/L 135-145 K (test code = 5257927128) 4.0 mmol/L 3.5-5.0 CL (test code = 7349667804) 108 mmol/L 98-108 CO2 TOTAL (test code = 9591565530) 24 mmol/L 23-31 AGAP (test code = 2998362139) 8 2-16 BUN (test code = 2359496516) 15 mg/dL 7-23 GLUCOSE (test code = 1639761431) 107 mg/dL 70-110 CREATININE (test code = 5900762712) 0.57 mg/dL 0.50-1.04 TOTAL BILI (test code = 8337550666) 0.4 mg/dL 0.1-1.1 CALCIUM (test code = 7058703680) 9.0 mg/dL 8.6-10.6 T PROTEIN (test code = 3025093795) 7.6 g/dL 6.3-8.2 ALBUMIN (test code = 8833959807) 4.4 g/dL 3.5-5.0 ALK PHOS (test code = 4501632125) 68 U/L 34-122 ALTv (test code = 1742-6) 22 U/L 5-35 AST(SGOT) (test code = 3355972309) 40 U/L 13-40 eGFR (test code = 7393172162) 118.7 mL/min/1.73m2 GABBY (test code = GABBY) Association of Glomerular Filtration Rate (GFR) and Staging of Kidney Disease* + + +- +| GFR (mL/min/1.73 m2) ?| With Kidney Damage ?| ?Without Kidney Damage+ ------+ ----+ ------+| ?>90 ?| ?Stage one ?| ? Normal ?+ -+ + -+| ?60-89 ?| ?Stage two ?| ? Decreased GFR ? + + +- +| ?30-59 ?| ?Stage three ?| ? Stage three ? + + +- +| ?15-29 ?| ?Stage four ? | ? Stage four ?+ -+ + -+| ?<15 (or dialysis) ? ?| ?Stage five ? | ? Stage five ?+ -+ + -+ *Each stage assumes the associated GFR level has been in effect for at least three months. ?Stages 1 to 5, with or without kidney disease, indicate chronic kidney disease. Notes: Determination of stages one and two (with eGFR >59mL/min/1.73 m2) requires estimation of kidney damage for at least three months as defined by structural or functional abnormalities of the kidney, manifested by either:Pathological abnormalities or Markers of kidney damage (including abnormalities in the composition of the blood or urine or abnormalities in imaging tests). [facility] WITH [id number] 18:45:20* Test Item Value Reference Range Interpretation Comme nts WBC (test code = 6690-2) 5.31 See_Comment [Automated [employer]] The system which generated this result transmitted reference range: 4.30 - 11.10 10*3/?L. The reference range was not used to interpret this result as normal/abnormal. RBC (test code = 789-8) 3.91 See_Comment L [Automated [employer]] The system which generated this result transmitted reference range: 3.93 - 5.25 10*6/?L. The reference range was not used to interpret this result as normal/abnormal. HGB (test code = 718-7) 13.6 g/dL 11.6-15.0 HCT (test code = 4544-3) 40.3 % 35.7-45.2 MCV (test code = 787-2) 103.1 fL 80.6-95.5 H MCH (test code = 785-6) 34.8 pg 25.9-32.8 H MCHC (test code = 786-4) 33.7 g/dL 31.6-35.1 RDW-SD (test code = 23658-5) 46.3 fL 39.0-49.9 RDW-CV (test code = 788-0) 12.1 % 12.0-15.5 PLT (test code = 777-3) 242 See_Comment [Automated [employer] ge] The system which generated this result transmitted reference range: 166 - 358 10*3/?L. The reference range was not used to interpret this result as normal/abnormal. MPV (test code = 32080-1) 9.1 fL 9.5-12.9 L NRBC/100 WBC (test code = 1949381720) 0.0 See_Comment [Automated Babble ssage] The system which generated this result transmitted reference range: 0.0 - 10.0 /100 WBCs. The reference range was not used to interpret this result as normal/abnormal. NRBC x10^3 (test code = 1122843738) See_Comment [Automated [employer] ge] The system which generated this result transmitted reference range: 10*3/?L. The reference range was not used to interpret this result as normal/abnormal. GRAN MAT (NEUT) % (test code = 770-8) 60.0 % IMM GRAN % (test code = 2854896863) 0.20 % LYMPH % (test code = 736-9) 32.0 % MONO % (test code = 5905-5) 5.1 % EOS % (test code = 713-8) 2.3 % BASO % (test code = 706-2) 0.4 % GRAN MAT x10^3(ANC) (test code = 0972980371) 3.19 10*3/uL 1.88-7.09 IMM GRAN x10^3 (test code = 6564827968) 0.00-0.06 LYMPH x10^3 (test code = 731-0) 1.70 10*3/uL 1.32-3.29 MONO x10^3 (test code = 742-7) 0.27 10*3/uL 0.33-0.92 L EOS x10^3 (test code = 711-2) 0.12 10*3/uL 0.03-0.39 BASO x10^3 (test code = 704-7) 0.01-0.07 Lab Interpretation (test code = 01144-3) Abnormal [facility] [id number] 16:29:00* Test Item Value Reference Range Interpretation Comme nts POCT PREG (test code = 1605) Negative On board controls acceptable with C Line (test code = 3574) Yes POCT PREG LOT # (test code = 3575) [id number] POCT PREG TEST DATE ( test code = 3576) 05-20-2024 Lab Interpretation (test cod e = 12902-2) Normal [facility] [id number] 06:39:00* Test Item Value Reference Range Interpretation Comme nts POCT PREG (test code = 1605) Negative On board controls acceptable with C Line (test code = 3574) Yes POCT PREG LOT # (test code = 3575) [id number] POCT PREG TEST DATE ( test code = 3576) 02/21/2024 Lab Interpretation (test cod e = 47374-5) Normal [facility] CenterPREGNANCY TEST, [id number] 19:40:14* Test Item Value Reference Range Interpretation Comme nts PREG SERUM (test code = 2647859985) Negative GABBY (test code = GABBY) Less than 10 IU/L. ?If low titer or ectopic is suspected, resubmit specimen in 48-72 hours. [facility]. METABOLIC PANEL (23439)2022-09-10 18:51:34* Test Item Value Reference Range Interpretation Comme nts NA (test code = 8356876054) 141 mmol/L 135-145 K (test code = 3056844130) 4.2 mmol/L 3.5-5.0 CL (test code = 8229410758) 109 mmol/L 98-108 H CO2 TOTAL (test code = 4363095591) 24 mmol/L 23-31 AGAP (test code = 9837213378) 8 2-16 BUN (test code = 8632654321) 13 mg/dL 7-23 GLUCOSE (test code = 8736453402) 94 mg/dL 70-110 CREATININE (test code = 9926247561) 0.65 mg/dL 0.50-1.04 TOTAL BILI (test code = 8396184830) 0.9 mg/dL 0.1-1.1 CALCIUM (test code = 3079501731) 9.6 mg/dL 8.6-10.6 T PROTEIN (test code = 7105067309) 8.2 g/dL 6.3-8.2 ALBUMIN (test code = 5109003661) 5.0 g/dL 3.5-5.0 ALK PHOS (test code = 6864148931) 63 U/L 34-122 ALTv (test code = 1742-6) 53 U/L 5-35 H AST(SGOT) (test code = 7192985906) 47 U/L 13-40 H eGFR (test code = 0533579309) 102.6 mL/min/1.73m2 GABBY (test code = GABBY) Association of Glomerular Filtration Rate (GFR) and Staging of Kidney Disease* + --+ --+ ------+| GFR (mL/min/1.73 m2) ?| With Kidney Damage ?| ?Without Kidney Damage+ --------+ --------+ +| ?>90 ?| ?Stage one ?| ? Normal ?+ ---+ ---+ -------+| ?60-89 ?| ?Stage two ?| ? Decreased GFR ? + --+ --+ ------+| ?30-59 ?| ?Stage three ?| ? Stage three ? + --+ --+ ------+| ?15-29 ?| ?Stage four ? | ? Stage four ?+ ---+ ---+ -------+| ?<15 (or dialysis) ? ?| ?Stage five ? | ? Stage five ?+ ---+ ---+ -------+ *Each stage assumes the associated GFR level has been in effect for at least three months. ?Stages 1 to 5, with or without kidney disease, indicate chronic kidney disease. Notes: Determination of stages one and two (with eGFR >59mL/min/1.73 m2) requires estimation of kidney damage for at least three months as defined by structural or functional abnormalities of the kidney, manifested by either:Pathological abnormalities or Markers of kidney damage (including abnormalities in the composition of the blood or urine or abnormalities in imaging tests). Lab Interpretation (test code = 66132-5) Abnormal [facility] WITH [id number] 18:31:48* Test Item Value Reference Range Interpretation Comme nts WBC (test code = 6690-2) 5.81 See_Comment [Automated [employer]] The system which generated this result transmitted reference range: 4.30 - 11.10 10*3/?L. The reference range was not used to interpret this result as normal/abnormal. RBC (test code = 789-8) 4.17 See_Comment [Automated [employer]] The system which generated this result transmitted reference range: 3.93 - 5.25 10*6/?L. The reference range was not used to interpret this result as normal/abnormal. HGB (test code = 718-7) 13.9 g/dL 11.6-15.0 HCT (test code = 4544-3) 42.0 % 35.7-45.2 MCV (test code = 787-2) 100.7 fL 80.6-95.5 H MCH (test code = 785-6) 33.3 pg 25.9-32.8 H MCHC (test code = 786-4) 33.1 g/dL 31.6-35.1 RDW-SD (test code = 96507-3) 42.8 fL 39.0-49.9 RDW-CV (test code = 788-0) 11.8 % 12.0-15.5 L PLT (test code = 777-3) 253 See_Comment [Automated [employer]] The system which generated this result transmitted reference range: 166 - 358 10*3/?L. The reference range was not used to interpret this result as normal/abnormal. MPV (test code = 05685-8) 9.7 fL 9.5-12.9 NRBC/100 WBC (test code = 5069268073) 0.0 See_Comment [Automated Babble ssage] The system which generated this result transmitted reference range: 0.0 - 10.0 /100 WBCs. The reference range was not used to interpret this result as normal/abnormal. NRBC x10^3 (test code = 7794274459) See_Comment [Automated messa ge] The system which generated this result transmitted reference range: 10*3/?L. The reference range was not used to interpret this result as normal/abnormal. GRAN MAT (NEUT) % (test code = 770-8) 57.5 % IMM GRAN % (test code = 8078204477) 0.30 % LYMPH % (test code = 736-9) 32.7 % MONO % (test code = 5905-5) 7.1 % EOS % (test code = 713-8) 1.9 % BASO % (test code = 706-2) 0.5 % GRAN MAT x10^3(ANC) (test code = 6415441083) 3.34 10*3/uL 1.88-7.09 IMM GRAN x10^3 (test code = 8232492574) 0.00-0.06 LYMPH x10^3 (test code = 731-0) 1.90 10*3/uL 1.32-3.29 MONO x10^3 (test code = 742-7) 0.41 10*3/uL 0.33-0.92 EOS x10^3 (test code = 711-2) 0.11 10*3/uL 0.03-0.39 BASO x10^3 (test code = 704-7) 0.03 10*3/uL 0.01-0.07 Lab Interpretation (test code = 66282-7) [facility]normal [facility] CenterHILDA [id number] 20:28:58* Test Item Value Reference Range Interpretation Comme nts TROPONIN I (test code = 9256489387) 0.001 ng/mL <=0.034 GABBY (test code = GABBY) Reference (Normal) Range (defined by the 99th percentile reference limit): <= 0.034 ng/mL Note: Cardiac troponin begins to rise 3-4 hours after the onset of ischemia. Repeat in 4-6 hours if the sample was drawn within 3-4 hours of the onset of the symptom and found normal. Diagnosis of myocardial injury is made with acute changes in cTn concentrations with at least one serial sample above the 99th percentile upper reference limit (URL), taken together with the patient's clinical presentation. Biotin has been reported to cause a negative bias, interpret results relative to patient's use of biotin. Lab Interpretation (test code = 35627-3) Normal [facility] CenterD-[id number] 18:38:47* Test Item Value Reference Range Interpretation Comments D-DIMER (test code = 6902201259) 0.67 See_Comment H [Automated message] The system which generated this result transmitted reference range: <0.41 ?g/mL (FEU). The reference range was not used to interpret this result as normal/abnormal. GABBY (test code = GABBY) This test may be used in conjunction with a clinical pretest probability (PTP) assessment model to exclude venous thromboembolism (VTE) in patients suspected of deep venous thrombosis (DVT) and pulmonary embolism (PE) A D-Dimer value less than 0.50 ?g/ml (FEU) has a negative predicative value of 96 to 100% (95% CI)and 97 to 100% (95% CI) as an aid in the diagnosis of deep vein thrombosis (DVT) and pulmonary embolism when there is low or moderate pretest probability of PE or DVT. D-Dimer values are expressed in initial fibrinogen equivalent units (FEU)" The assay results should be used with other information, including the clinical context, in forming a diagnosis. Lab Interpretation (test code = 16662-9) [facility]normal [facility] [facility] [id number] 17:13:39* Test Item Value Reference Range Interpretation Comme nts TROPONIN I (test code = 6054464679) 0.003 ng/mL <=0.034 GABBY (test code = GABBY) Reference (Normal) Range (defined by the 99th percentile reference limit): <= 0.034 ng/mL Note: Cardiac troponin begins to rise 3-4 hours after the onset of ischemia. Repeat in 4-6 hours if the sample was drawn within 3-4 hours of the onset of the symptom and found normal. Diagnosis of myocardial injury is made with acute changes in cTn concentrations with at least one serial sample above the 99th percentile upper reference limit (URL), taken together with the patient's clinical presentation. Biotin has been reported to cause a negative bias, interpret results relative to patient's use of biotin. Lab Interpretation (test code = 26546-5) Normal [facility]. METABOLIC PANEL (31556)2022-07-15 17:02:57* Test Item Value Reference Range Interpretation Comme nts NA (test code = 3251434999) 138 mmol/L 135-145 K (test code = 7062378020) 4.4 mmol/L 3.5-5.0 CL (test code = 1015490910) 110 mmol/L 98-108 H CO2 TOTAL (test code = 8499387606) 21 mmol/L 23-31 L AGAP (test code = 0668771555) 7 2-16 BUN (test code = 1900999634) 14 mg/dL 7-23 GLUCOSE (test code = 1851348475) 108 mg/dL 70-110 CREATININE (test code = 3900101063) 0.58 mg/dL 0.50-1.04 TOTAL BILI (test code = 7965877793) 0.6 mg/dL 0.1-1.1 CALCIUM (test code = 8319617117) 8.7 mg/dL 8.6-10.6 T PROTEIN (test code = 4952893436) 7.4 g/dL 6.3-8.2 ALBUMIN (test code = 0998579169) 4.4 g/dL 3.5-5.0 ALK PHOS (test code = 6766255563) 63 U/L 34-122 ALTv (test code = 1742-6) 59 U/L 5-35 H AST(SGOT) (test code = 6078065848) 44 U/L 13-40 H eGFR (test code = 6138820439) 117.0 mL/min/1.73m2 GABBY (test code = GABBY) Association of Glomerular Filtration Rate (GFR) and Staging of Kidney Disease* + --+ --+ ------+| GFR (mL/min/1.73 m2) ?| With Kidney Damage ?| ?Without Kidney Damage+ --------+ --------+ +| ?>90 ?| ?Stage one ?| ? Normal ?+ ---+ ---+ -------+| ?60-89 ?| ?Stage two ?| ? Decreased GFR ? + --+ --+ ------+| ?30-59 ?| ?Stage three ?| ? Stage three ? + --+ --+ ------+| ?15-29 ?| ?Stage four ? | ? Stage four ?+ ---+ ---+ -------+| ?<15 (or dialysis) ? ?| ?Stage five ? | ? Stage five ?+ ---+ ---+ -------+ *Each stage assumes the associated GFR level has been in effect for at least three months. ?Stages 1 to 5, with or without kidney disease, indicate chronic kidney disease. Notes: Determination of stages one and two (with eGFR >59mL/min/1.73 m2) requires estimation of kidney damage for at least three months as defined by structural or functional abnormalities of the kidney, manifested by either:Pathological abnormalities or Markers of kidney damage (including abnormalities in the composition of the blood or urine or abnormalities in imaging tests). Lab Interpretation (test code = 17925-0) [facility]normal [facility] CenterLIP[facility], [id number] 17:02:57* Test Item Value Reference Range Interpretation Comme nts LIPASE (test code = 7686652539) 80 U/L 0-220 Lab Interpretation (test cod e = 19158-9) Normal [facility] WITH [id number] 16:50:14* Test Item Value Reference Range Interpretation Comme nts WBC (test code = 6690-2) 6.79 See_Comment [Automated [employer]] The system which generated this result transmitted reference range: 4.30 - 11.10 10*3/?L. The reference range was not used to interpret this result as normal/abnormal. RBC (test code = 789-8) 4.02 See_Comment [Footbalistic] The system which generated this result transmitted reference range: 3.93 - 5.25 10*6/?L. The reference range was not used to interpret this result as normal/abnormal. HGB (test code = 718-7) 13.8 g/dL 11.6-15.0 HCT (test code = 4544-3) 40.7 % 35.7-45.2 MCV (test code = 787-2) 101.2 fL 80.6-95.5 H MCH (test code = 785-6) 34.3 pg 25.9-32.8 H MCHC (test code = 786-4) 33.9 g/dL 31.6-35.1 RDW-SD (test code = 02618-4) 44.0 fL 39.0-49.9 RDW-CV (test code = 788-0) 11.9 % 12.0-15.5 L PLT (test code = 777-3) 215 See_Comment [Automated messa ge] The system which generated this result transmitted reference range: 166 - 358 10*3/?L. The reference range was not used to interpret this result as normal/abnormal. MPV (test code = 79545-8) 9.2 fL 9.5-12.9 L NRBC/100 WBC (test code = 3395104432) 0.0 See_Comment [Automated Babble ssage] The system which generated this result transmitted reference range: 0.0 - 10.0 /100 WBCs. The reference range was not used to interpret this result as normal/abnormal. NRBC x10^3 (test code = 4573280869) See_Comment [Automated messa ge] The system which generated this result transmitted reference range: 10*3/?L. The reference range was not used to interpret this result as normal/abnormal. GRAN MAT (NEUT) % (test code = 770-8) 53.0 % IMM GRAN % (test code = 2711650067) 0.40 % LYMPH % (test code = 736-9) 35.2 % MONO % (test code = 5905-5) 7.7 % EOS % (test code = 713-8) 3.1 % BASO % (test code = 706-2) 0.6 % GRAN MAT x10^3(ANC) (test code = 8591425189) 3.60 10*3/uL 1.88-7.09 IMM GRAN x10^3 (test code = 7075931002) 0.03 10*3/uL 0.00-0.06 LYMPH x10^3 (test code = 731-0) 2.39 10*3/uL 1.32-3.29 MONO x10^3 (test code = 742-7) 0.52 10*3/uL 0.33-0.92 EOS x10^3 (test code = 711-2) 0.21 10*3/uL 0.03-0.39 BASO x10^3 (test code = 704-7) 0.04 10*3/uL 0.01-0.07 Lab Interpretation (test code = 11919-5) Abnormal [facility] [id number] 16:50:00* Test Item Value Reference Range Interpretation Comme nts POCT PREG (test code = 1605) negative On board controls acceptable with C Line (test code = 3574) present POCT PREG LOT # (test code = 3575) [id number] POCT PREG TEST DATE ( test code = 3576) 2023-08-16 Lab Interpretation (test cod e = 32486-3) Normal [facility] [id number] 15:50:00* Test Item Value Reference Range Interpretation Comme nts POCT PREG (test code = 1605) NEGATIVE On board controls acceptable with C Line (test code = 3574) PRESENT POCT PREG LOT # (test code = 3575) [id number] POCT PREG TEST DATE ( test code = 3576) 08/16/2023 Lab Interpretation (test cod e = 40414-9) Normal [facility] Metabolic Panel (NA, K, CL, CO2, GLUCOSE, BUN, CREATININE, CA)2021-12-29 09:39:53* Test Item Value Reference Range Interpretation Comme [facility] NA (test code = 1835378466) 138 mmol/L 135-145 K (test code = 3768816732) 4.1 mmol/L 3.5-5 CL (test code = 6416542774) 109 mmol/L 98-108 H CO2 TOTAL (test code = 4809073796) 23 mmol/L 23-31 AGAP (test code = 3195874959) 2-16 BUN (test code = 0470081807) 16 mg/dL 7-23 GLUCOSE (test code = 2294601000) 108 mg/dL 70-110 CREATININE (test code = 5362226344) 0.63 mg/dL 0.5-1.04 CALCIUM (test code = 9953069327) 8.3 mg/dL 8.6-10.6 L eGFR (test code = 3422555792) mL/min/1.73m2 GABBY (test code = GABBY) Association of Glomerular Filtration Rate (GFR) and Staging of Kidney Disease* + --+ --+ ------+| GFR (mL/min/1.73 m2) ?| With Kidney Damage ?| ?Without Kidney Damage+ --------+ --------+ +| ?>90 ?| ?Stage one ?| ? Normal ?+ ---+ ---+ -------+| ?60-89 ?| ?Stage two ?| ? Decreased GFR ? + --+ --+ ------+| ?30-59 ?| ?Stage three ?| ? Stage three ? + --+ --+ ------+| ?15-29 ?| ?Stage four ? | ? Stage four ?+ ---+ ---+ -------+| ?<15 (or dialysis) ? ?| ?Stage five ? | ? Stage five ?+ ---+ ---+ -------+ *Each stage assumes the associated GFR level has been in effect for at least three months. ?Stages 1 to 5, with or without kidney disease, indicate chronic kidney disease. Notes: Determination of stages one and two (with eGFR >59mL/min/1.73 m2) requires estimation of kidney damage for at least three months as defined by structural or functional abnormalities of the kidney, manifested by either:Pathological abnormalities or Markers of kidney damage (including abnormalities in the composition of the blood or urine or abnormalities in imaging tests). Lab Interpretation (test code = 22196-0) Abnormal [facility] CenterGLYCOSYLATED HEMOGLOBIN (A1C)2021-12-28 23:29:14* Test Item Value Reference Range Interpretation Comme nts HGB A1C (test code = 4548-4) 5.3 % 4-5.7 GABBY (test code = GABBY) Reference RangesNormal: <5.7%Prediabetes: 5.7 - 6.4%Diabetes: > 6.5% Lab Interpretation (test code = 87905-9) Normal [facility] CenterCOMP. METABOLIC PANEL (77655)2021-12-28 17:45:30* Test Item Value Reference Range Interpretation Comme nts NA (test code = 9391534151) 139 mmol/L 135-145 K (test code = 0881738583) 4.4 mmol/L 3.5-5 CL (test code = 7422426855) 104 mmol/L 98-108 CO2 TOTAL (test code = 6115309864) 22 mmol/L 23-31 L AGAP (test code = 1008376275) 2-16 BUN (test code = 3056176739) 13 mg/dL 7-23 GLUCOSE (test code = 8276203841) 98 mg/dL 70-110 CREATININE (test code = 8642130499) 0.55 mg/dL 0.5-1.04 TOTAL BILI (test code = 7460570031) 0.5 mg/dL 0.1-1.1 CALCIUM (test code = 3183773913) 9.7 mg/dL 8.6-10.6 T PROTEIN (test code = 5507349883) 8.5 g/dL 6.3-8.2 H ALBUMIN (test code = 2290664289) 5.3 g/dL 3.5-5 H ALK PHOS (test code = 1843280347) 81 U/L 34-122 ALTv (test code = 1742-6) 24 U/L 5-35 AST(SGOT) (test code = 5774029274) 26 U/L 13-40 eGFR (test code = 4589732586) mL/min/1.73m2 GABBY (test code = GABBY) Association of Glomerular Filtration Rate (GFR) and Staging of Kidney Disease* + --+ --+ ------+| GFR (mL/min/1.73 m2) ?| With Kidney Damage ?| ?Without Kidney Damage+ --------+ --------+ +| ?>90 ?| ?Stage one ?| ? Normal ?+ ---+ ---+ -------+| ?60-89 ?| ?Stage two ?| ? Decreased GFR ? + --+ --+ ------+| ?30-59 ?| ?Stage three ?| ? Stage three ? + --+ --+ ------+| ?15-29 ?| ?Stage four ? | ? Stage four ?+ ---+ ---+ -------+| ?<15 (or dialysis) ? ?| ?Stage five ? | ? Stage five ?+ ---+ ---+ -------+ *Each stage assumes the associated GFR level has been in effect for at least three months. ?Stages 1 to 5, with or without kidney disease, indicate chronic kidney disease. Notes: Determination of stages one and two (with eGFR >59mL/min/1.73 m2) requires estimation of kidney damage for at least three months as defined by structural or functional abnormalities of the kidney, manifested by either:Pathological abnormalities or Markers of kidney damage (including abnormalities in the composition of the blood or urine or abnormalities in imaging tests). Lab Interpretation (test code = 11772-5) Abnormal [facility] WITH [id number] 17:33:29* Test Item Value Reference Range Interpretation Comme nts WBC (test code = 6690-2) See_Comment [Automated [employer] ge] The system which generated this result transmitted reference range: 4.30 - 11.10 10*3/?L. The reference range was not used to interpret this result as normal/abnormal. RBC (test code = 789-8) See_Comment [Automated [employer] ge] The system which generated this result transmitted reference range: 3.93 - 5.25 10*6/?L. The reference range was not used to interpret this result as normal/abnormal. HGB (test code = 718-7) 15.7 g/dL 11.6-15 H HCT (test code = 4544-3) 47.2 % 35.7-45.2 H MCV (test code = 787-2) 100.6 fL 80.6-95.5 H MCH (test code = 785-6) 33.5 pg 25.9-32.8 H MCHC (test code = 786-4) 33.3 g/dL 31.6-35.1 RDW-SD (test code = 37813-4) 44.2 fL 39-49.9 RDW-CV (test code = 788-0) 11.9 % 12-15.5 L PLT (test code = 777-3) See_Comment [Automated [employer] ge] The system which generated this result transmitted reference range: 166 - 358 10*3/?L. The reference range was not used to interpret this result as normal/abnormal. MPV (test code = 53392-1) 9.3 fL 9.5-12.9 L NRBC/100 WBC (test code = 8383246177) See_Comment [Automated Babble ssage] The system which generated this result transmitted reference range: 0.0 - 10.0 /100 WBCs. The reference range was not used to interpret this result as normal/abnormal. NRBC x10^3 (test code = 6906607415) See_Comment [Automated messa ge] The system which generated this result transmitted reference range: 10*3/?L. The reference range was not used to interpret this result as normal/abnormal. GRAN MAT (NEUT) % (test code = 770-8) 73.9 % IMM GRAN % (test code = 7635333312) 0.50 % LYMPH % (test code = 736-9) 18.6 % MONO % (test code = 5905-5) 5.7 % EOS % (test code = 713-8) 0.9 % BASO % (test code = 706-2) 0.4 % GRAN MAT x10^3(ANC) (test code = 0780629180) 6.87 10*3/uL 1.88-7.09 IMM GRAN x10^3 (test code = 8591262449) 0.05 10*3/uL 0-0.06 LYMPH x10^3 (test code = 731-0) 1.73 10*3/uL 1.32-3.29 MONO x10^3 (test code = 742-7) 0.53 10*3/uL 0.33-0.92 EOS x10^3 (test code = 711-2) 0.08 10*3/uL 0.03-0.39 BASO x10^3 (test code = 704-7) 0.04 10*3/uL 0.01-0.07 Lab Interpretation (test code = 61729-6) Abnormal [facility]PO[facility] [id number] 17:27:00* Test Item Value Reference Range Interpretation Comme nts POCT PREG (test code = 1605) negative On board controls acceptable with C Line (test code = 3574) present POCT PREG LOT # (test code = 3575) [id number] POCT PREG TEST DATE ( test code = 3576) 03/17/2023 Lab Interpretation (test cod e = 27597-3) Normal [facility] CenterLariic Acid Whole [id number] 17:20:31* Test Item Value Reference Range Interpretation Comme nts LACTIC ACID (test code = 0389096722) 1.29 mmol/L 0.5-2.2 Lab Interpretation (test cod e = 96078-6) Normal [facility] Consult Notes Date/Time Note Provider Source 2023-01-13 11:00:18 tJ98bvkHpoeKupwoto1m mItFOnCUKVN u/+YVck1paDc/WhEL+sKKDgDWTw+rSV TQ2310-36-02A56:00:18Associated Order(s): CONSULT SURGICAL CO-MANAGEMENT (SCM) Images from the original note were not included.Surgical Co-Management Hospitalist (SCM) Consult ServiceGeneral (Non operative) Consultation NotePatient: Mitch De JesusN: [id number] Date of Consult: 01/13/2023 Referring Physician: Jing Morton MDReason for Consult: Medical co-managementHPI: Mitch Scott is a 37 year old female w/ no previously diagnosed medical conditions and who takes no medications who presented 01/11 with L hand pain and swelling s/p getting bitten by a dog 3 times 3 days [employer] DEVEL[employer]. Reported increased swelling, pain, complete loss of sensation in fingers since this morning. Has had rabies vaccination and antibodies. Got one dose of clindamycin, vancomycin, rocephin prior to admission. Since admission, placed on abx IV w/ vanc and flagyl. And patient has noted Numbness, movement and swelling to all fingertips improvedBl cx ngtd at 24Xray 3 vw w/ No acute osseous abnormalities.HISTORIES (personally reviewed by me):Active Ambulatory Problems Diagnosis Date Noted Ovarian torsion 07/27/2021 Abscess 12/28/2021 Obesity (BMI 30-39.9) 12/30/2021 Resolved Ambulatory Problems Diagnosis Date Noted No Resolved Ambulatory Problems No Additional Past Medical History Past Surgical History: Procedure Laterality Date APPENDECTOMY CHOLECYSTECTOMY DIAGNOSTIC LAPAROSCOPY adhesions removal twice DIAGNOSTIC LAPAROSCOPY N/A 07/28/2021 Surgeon: Tyshawn Pierce MD; Location: [facility] HYSTERECTOMY DOMINIQUE INCISION AND DRAINAGE OF ABSCESS Bilateral 12/30/2021 Surgeon: Arcadio Phipps MD; Location: [facility] OR LOCATION LAPAROSCOPIC OVARIAN CYSTECTOMY Right 07/28/2021 Surgeon: Tyshawn Pierce MD; Location: [facility] Social History Socioeconomic History Marital status: Spouse name: Not on file Number of children: 3 Years of education: 13 Highest education level: Some college, no degree Occupational History 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 Tobacco Use Smoking status: Never Passive exposure: Never Smokeless tobacco: Never Vaping Use Vaping Use: Never used Substance and Sexual Activity Alcohol use: Yes Comment: social Drug use: Not Currently Sexual activity: Yes Partners: Male control/protection: Surgical Other Topics Concern Not on file Social History Narrative Not on file Social Determinants of Health Financial Resource Strain: Low Risk (01/12/2023) Overall Financial Resource Strain (CARDIA) Difficulty of Paying Living Expenses: Not hard at all Food Insecurity: No Food Insecurity (01/12/2023) Hunger Vital Sign Worried About Running Out of Food in the Last Year: Never true Ran Out of Food in the Last Year: Never true Transportation Needs: No Transportation Needs (01/12/2023) PRAPARE - Transportation Lack of Transportation (Medical): No Lack of Transportation (Non-Medical): No Physical Activity: Sufficiently Active (01/12/2023) Exercise Vital Sign Days of Exercise per Week: 7 days Minutes of Exercise per Session: 60 min Stress: Not on file Social Connections: Unknown (01/12/2023) Social Connection and Isolation Panel [NHANES] Frequency of Communication with Friends and Family: More than three times a week Frequency of Social Gatherings with Friends and Family: Not on file Attends Judaism Services: Not on file Active Member of Clubs or Organizations: Not on file Attends Club or Organization Meetings: Not on file Marital Status: Living with partner Intimate Partner Violence: Not on file Housing Stability: Low Risk (01/12/2023) Housing Stability Vital Sign Unable to Pay for Housing in the Last Year: No Number of Places Lived in the Last Year: 1 Unstable Housing in the Last Year: No No family history on file. Home medications: Current Medications:Scheduled meds:enoxaparin, 40 mg, DAILYmelatonin, 3 mg, QHSmethocarbamoL, 750 mg, QIDmetroNIDAZOLE, 500 mg, Q8H ABXsennosides-docusate sodium, 1 tablet, BIDvancomycin Peripheral Line IV Piggyback, 15 mg/kg, Q8H ABXIV meds: PRN meds:metoclopramide HCl, 5 mg, X2CBCIvbzmsngnhoFQPCC, 25 mg, J5BBSRPQKKhtpl PF, 25 mcg, E6DAVSEESYItghseh-zkldopxwvfawt , 1 tablet, Z6LREBpizmwoeofbli glycol 3350, 17 g, QDAILYPRNproMETHazine, 25 mg, F2BLJNooiLUYoB, 50 mg, R8DPTSCVPQQVZLW:Allergies Allergen Reactions Codeine Itching Aspirin Rash and Shortness of Breath Iodine Other - See comments Levaquin [Levofloxacin] Rash Morphine Other - See comments "makes me the hulk" Penicillin Rash, Shortness of Breath and Swelling Zofran [Ondansetron Hcl] Rash REVIEW OF SYSTEMSAll systems negative except as otherwise stated in HPIPHYSICAL EXAMBP 127/69 (BP Location: Right arm, Patient Position: Supine) | Pulse 62 | Temp 36.8 ?C (98.2 ?F) (Oral) | Resp 18 | Ht 1.727 m (5' 8") | Wt 83.9 kg (185 lb) | SpO2 98% | BMI 28.13 kg/m? General: AAO x3, No acute distressHEENT: Normocephalic, atraumatic, EOMI, normal conjunctiva & lidsNeck: Trachea midline, thyroid normal to inspectionLungs: Clear to auscultation bilaterally, no crackles, wheezes, or rhonchiCardiovascular: Normal S1, S2, RRR, no rubs, murmurs, or gallopsAbdomen: Soft, nontender, normoactive bowel sounds, no masses or organomegalyMusculoskeletal: L hand with TTP and mild swelling. Integumentary: warm, dry without rashes or lesionsNeuro: no tremors, no focal deficits, sensation intact bilaterally LABS/IMAGING - reviewed, recent results as below:Lab Results Component Value Date/Time NA 135 01/13/2023 04:00 AM K 3.5 01/13/2023 04:00 AM CA 7.4 (L) 01/13/2023 04:00 AM CL 108 01/13/2023 04:00 AM BUN 8 01/13/2023 04:00 AM CREAT 0.40 (L) 01/13/2023 04:00 AM EGFR 178.6 01/13/2023 04:00 AM GLU 82 01/13/2023 04:00 AM TCO2 22 (L) 01/13/2023 04:00 AM WBC 4.90 01/13/2023 04:00 AM RBC 3.20 (L) 01/13/2023 04:00 AM PLT 171 01/13/2023 04:00 AM HGB 10.9 (L) 01/13/2023 04:00 AM HCT 31.7 (L) 01/13/2023 04:00 AM ALB 4.4 01/11/2023 01:24 PM TPRO 7.6 01/11/2023 01:24 PM BILIT 0.4 01/11/2023 01:24 PM ALT 22 01/11/2023 01:24 PM AST 40 01/11/2023 01:24 PM ALKPHOS 68 01/11/2023 01:24 PM MG 2.2 05/27/2022 09:50 AM PTINR 1.0 01/12/2023 05:08 AM PTPAT 11.1 01/12/2023 05:08 AM APTTPAT 28 01/12/2023 05:08 AM TROPNI 0.001 07/15/2022 01:17 PM Most Recent UA:Lab Results Component Value Date/Time UPROTEIN Negative 12/10/2022 11:28 AM UPH 6.0 12/10/2022 11:28 AM UGLUCOSE Normal 12/10/2022 11:28 AM UKETONES Negative 12/10/2022 11:28 AM UBILI Negative 12/10/2022 11:28 AM ULEUKEST Negative 12/10/2022 11:28 AM UNITRITE Positive (A) 12/10/2022 11:28 AM USPGRAV 1.016 12/10/2022 11:28 AM Latest Reference Range & Units 01/12/23 05:08 01/13/23 04:00 WBC x10^3 4.30 - 11.10 10*3/?L 4.91 4.90 RBC x10^6 3.93 - 5.25 10*6/?L 3.34 (L) 3.20 (L) HGB 11.6 - 15.0 g/dL 11.3 (L) 10.9 (L) HCT 35.7 - 45.2 % 33.5 (L) 31.7 (L) MCV 80.6 - 95.5 fL 100.3 (H) 99.1 (H) MCH 25.9 - 32.8 pg 33.8 (H) 34.1 (H) MCHC 31.6 - 35.1 g/dL 33.7 34.4 RDW-SD 39.0 - 49.9 fL 44.6 43.2 RDW-CV 12.0 - 15.5 % 12.0 11.9 (L) PLT x10^3 166 - 358 10*3/?L 183 171 (L): Data is abnormally low(H): Data is abnormally high Latest Reference Range & Units 01/12/23 05:08 01/13/23 04:00 NA 135 - 145 mmol/L 137 135 K 3.5 - 5.0 mmol/L 3.8 3.5 CL 98 - 108 mmol/L 105 108 CO2 TOTAL 23 - 31 mmol/L 23 22 (L) AGAP 2 - 16 9 5 BUN 7 - 23 mg/dL 14 8 GLUCOSE 70 - 110 mg/dL 90 82 CREATININE 0.50 - 1.04 mg/dL 0.50 0.40 (L) eGFR mL/min/1.73m2 138.1 178.6 CALCIUM 8.6 - 10.6 mg/dL 7.9 (L) 7.4 (L) (L): Data is abnormally lowVanc trough 16 01/12Radiology (48 HRS):Chest 2 ViewsResult Date: 01/11/2023No acute cardiopulmonary abnormality.XR HAND 3+ VW LEFTResult Date: 01/11/2023No acute osseous abnormalities. RL: 7802 AFC: 43511 End of report SSMENT & PLAN:Animal ittxAbikam58 female with no previously diagnosed medical conditions and who states does not take any medications regurlarly presenting with dog bite. Currently on IV abx with vanc and flagyl. Pt with allergy c/f anaphylactic reaction to penicillin that she states was when she was a child and she has not received penicillin since. Also states rash noted on her limb immediately after she received IV levaquin . She states that she has had multiple antibiotics in the past for skin and soft tissue infections and UTIs and has previously well tolerated bactrim and doxycycline. D/c abx recs in setting of dog bite, penicillin allergy-bactrim 1 double-strength tablet twice daily x 7 days on D/C- Metronidazole 500 mg 3 times daily x 7 days on D/C-Outpatient allergy referral for penicillin allergy testing- PCP referral for family medicine in [place] on d/cChronic, stable conditions: DVT Prophylaxis: Per Primary, Code Status: Dispo: Tunde Spann MD PGY-3 Internal Medicine 01/13/2023 Portions of this note were created using a voice-recognition transcribing system. Typographical errors and incorrect words or phrases may have been missed during proofreading. Please interpret accordingly. ssociated attestation - Fabian Foreman MD - 01/13/2023 3:06 PM CDT Images from the original note were not included.[facility] Surgical Co-Management ServiceFaculty AttestationAfter discussion with the resident and the rounding team, I examined Mitch Scott on the date of service indicated.I agree with resident's note as written.I actively participated in the decision-making process regarding the patient's care. Please see the resident's note for additional details. Active Hospital Issues:See Resident Note for full detailsPrincipal Problem: Flexor tenosynovitis of finger (01/11/2023) (POA: Yes)Resolved Problems: * No resolved hospital problems. *Additional Faculty Assessment (if any):N/Deepak Foreman MD, FAAP, FACP, SFHMPortions of this note were created using a voice-recognition transcribing system. Typographical errors and incorrect words or phrases may have been missed during proofreading. Please interpret accordingly.[id number] [id number], Sunil1.2.840.127048.1.13.104.2. 7.2.876550ZlwajKbuyxCR0176-04-4 9T15:06:40Consult noteTXT1.2.840.173948.1.13.104. 2.7.2.568074|[id number] ble for patient vchb25732-2Nzledqw noteLNUT[address] GuxlCgdvwqxfrVdmjuziqfZBMI81135 29658KQUIVDWNBLBUAKRHTNHJRU9541 -08-29T15:06:401.2.840.729453.1 .72.3.15|1.2.840.081665.1.13.10 4.2.7.2.727879_1886015103 [facility] 2023-01-12 10:06:00 YjUIFTRW3FzHGXTQymjE +r6cXrCPYeD PeoP3pWl1RUefNWp5hzpvB7n2p+B4fX L21337-71-10N76:06:00Associated Order(s): CONSULT ADULT OCCUPATIONAL THERAPY UE EVALUATIONConsult received via [place], EMR reviewed and evaluation completed 01/12/2023. Patient presents with dog bit to L hand. Patient agreeable to participate in occupational therapy. Please refer to the evaluation below for details. Discharge Recommendations:Therapy Needs and Potential:- Patient would benefit from continued skilled occupational therapy services to address: Decline in basic activities of daily living, Decline in instrumental activities of daily living, Decreased strength, Decreased range of motion, and Decreased coordination - Patient demonstrates good potential to improve and meet therapy goals with further skilled occupational therapy services.- Patient appears motivated to improve their B/IADLs and return to their previous level of function.- Patient demonstrates ability to tolerate at least 30-60 minutes of active participation in occupational therapy.- Patient able to follow commands: 1-step Yes, Multi-step Yes, Inconsistencies No- Recommend outpatient occupational therapy referralChallenges to Home Transition:- Requires physical assistance for IADLSEquipment Recommendations:NonePLAN OF CARE: At least 3 x/week . Precautions: Weight bearing status: WBAT L UEGeneral: noneBracing: William pillowSubjective: Patient reports discharge to [facility] with no steps and tub/shower combo. 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 Objective:37 year old female Admit date: 01/11/2023 Date of injury: 3 days prior to admissionAdmit Diagnosis: Flexor tenosynovitis of finger [M65.9]OT Diagnosis: Impaired BADL independence, Impaired IADL independence, Weakness, Decreased UE Function Dominant, Limited joint ROM, UE Edema, and Pain PMH: No past medical history on file.PSH: Past Surgical History: Procedure Laterality Date APPENDECTOMY CHOLECYSTECTOMY DIAGNOSTIC LAPAROSCOPY adhesions removal twice DIAGNOSTIC LAPAROSCOPY N/A 07/28/2021 Surgeon: Tyshawn Pierce MD; Location: [facility] OR LOCATION HYSTERECTOMY DOMINIQUE INCISION AND DRAINAGE OF ABSCESS Bilateral 12/30/2021 Surgeon: Arcadio Phipps MD; Location: [facility] OR LOCATION LAPAROSCOPIC OVARIAN CYSTECTOMY Right 07/28/2021 Surgeon: Tyshawn Pierce MD; Location: [facility] OR LOCATION Function prior to admission: Household ambulation, Community ambulation, Independent with BADLs, and Independent with IADLsREASON FOR REFERRAL: Discharge needs PROBLEM LIST: Decreased extremity function, Decreased ROM, Edema, Decreased indep with ADL, Pain with activity/constant, and Impaired Sensation Hand dominance: leftPAIN: Pain Location: left UEPain rating before treatment: 6, After treatment: 9Pain Management: Nursing NotifiedCURRENT OBSERVATIONS/MEASUREMENTS: Patient presents with: Patient reports history of limited L wrist ROM all planes following fracture and surgical repairDecreased ROM - lacking 1/2 of isolated MCPJ flexion for LF & IF and limited adduction between LF and RF, also lacking 3/4 of IPJ flexion of IF and no IPJ flexion observed at LF; opposition limited to IF and LFDecreased composite fist L handEdema left hand and wristEcchymosis L LFUE Muscle Tone: bilateral WNLDexterity/Coordination: left Impaired, utilizing adduction of digits to hold small itemsSensation: Patient reports numbness to L LF.TREATMENT PROVIDED:Written/verbal instruction provided on the following home programs with verbal cues for body mechanics and technique: L hand P/AROM (instructed to perform AROM HEP 3-5x/day x 10 reps with 3-5 second and PROM HEP 3-5x/day x 5 reps with 20-45 second hold; returns demo with verbal cues for proper technique; handout issued) and L wrist AROM (instructed to perform HEP 3-5x/day x 10 reps; returns demo with verbal cues for proper technique; handout issued), Edema control, Positioning, and Role of OT Assessment: Initiated HEP to improve left hand functional use, however, patient will benefit from continued reinforcement to insure consistent progress, independence and follow through. REHAB POTENTIAL/PROGNOSIS: Patient shows good potential to continue follow through with stated goal(s). YesPATIENT/FAMILY GOALS: to hold her grandbabiesTREATMENT/INTERVENTI ON PLAN: Functional motor treatment, Patient/Caregiver Education, Equipment recommendations, Daily living activities, and Therapeutic exercisesGOAL: By discharge, the patient will:Demonstrate independence with prescribed HEP(s) to increase functional use of the left UE for self-care.PATIENT-FAMILY TEACHINGPatient provided with preferred teaching of verbal information, written information, and demonstration on AROM, Edema control, Positioning, PROM, and Role of OT. Shows readiness to learn. Verbal instruction, Written material, and Demonstration teaching provided. Individual is able to read and needs reinforcement of teaching. RACHNA Shrestha, OTD, C/NDTTotal Timed Treatment Codes: 8 MinTotal Treatment Time: 18 MinPatient Complexity Level Moderate - An occupational therapy evaluation of moderate complexity was completed using the above tests and measures. The following information was obtained: An occupational profile and medical and therapy history, including an expanded review of medical and/or therapy records and additional review of physical, cognitive, or psychosocial history related to current functional performance, Various standardized and non-standardized assessments were used to identify at least 3-5 performance deficits related to physical, cognitive, or psychosocial skills that result in activity limitations and/or participation restrictions, and Clinical decision making of moderate analytic complexity, which includes an analysis of the occupational profile, analysis of data from detailed assessment(s), and consideration of several treatment options. Patient may present with comorbidities that affect occupational performance. Minimal to moderate modification of tasks or assistance (e.g., physical or verbal) with assessment(s) is necessary to enable patient to complete evaluation component. 53187-2Tjcobar vkfxSY8159-47-47T26:58:33Consul t noteTXT1.2.840.342110.1.13.104. 2.7.2.986718|[id number] ble for patient wbqy28949-1Fxvyhhv rnwsCN491172662Twsirnal O Davis [address] StreetTXTX[address] 09471NEFYQYNQXWUIKCWELUWWGZ7459 -08-28T11:58:331.2.840.720165.1 .72.3.15|1.2.840.717186.1.13.10 4.2.7.2.727879_[id number] Rufina Ulloa [facility] 2023-01-12 07:22:46 +xd5WpwAtBhvGFMT5/wI OZOFDQnCAO/ GF3cKnWTCvz1vZWXo+lJcMLIkDfmwNW lZ1571-79-73Z38:22:46Associated Order(s): CONSULT ADULT PHYSICAL THERAPY 37:22 AMPhysical Therapy NoteConsult received and chart reviewed. Patient admitted with isolated dog bite to left hand. PT will defer therapy to OT at this time. Thank you.Misa Leyva PT, DPT, CWSPager: [id number] signed by Misa Leyva, PT at 01/12/2023 7:23 AM QNX34812-9Rhommtl iikdRA5655-89-23M77:23:16Consul t noteTXT1.2.840.924240.1.13.104. 2.7.2.963223|[id number] ble for patient smqo01573-4Fxztfwv sbbiYZ386274273Omqxnd Kurtz [address] StreetTXTX[address] 29003LINKHELPIRBLATHRNUYUDP5772 -08-28T07:23:161.2.840.698008.1 .72.3.15|1.2.840.558074.1.13.10 4.2.7.2.727879_[id number] Misa Leyva PT [facility] - Health History and Physical Notes Date/Time Note Provider Source 2023-01-11 17:57:58 E0VnEoTR/P7BcxdOaDy4 m4Eb+c61QOVw7zKZQ66xs7 u+JtV5jfibG56ouyADLdV06093-93-11N79:57:58F ormatting of this note is different from the original.Images from the original note were not included.ORTHOPEDIC SURGERY H&POrthopedic Faculty: Armani complaint: Chief Complaint Patient presents with Hand Injury HISTORY OF PRESENT ILLNESSTeresnain Scott is a 37 year old female who presents with L hand pain and swelling s/p getting bitten by a dog 3 times 3 days ago. Reports increased swelling, pain, complete loss of sensation in fingers since this morning. Has had rabies vaccination and antibodies. Got one dose of clindamycin, vancomycin, rocephin this afternoon. History of L distal radius and scaphoid ORIF in 2017, 4th proximal phalanx fracture in t is L hand dominant. 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 HydronephrosisPast Surgical History: Procedure Laterality Date APPENDECTOMY CHOLECYSTECTOMY DIAGNOSTIC LAPAROSCOPY adhesions removal twice DIAGNOSTIC LAPAROSCOPY N/A 07/28/2021 Surgeon: Tyshawn Pierce MD; Location: [facility] OR LOCATION HYSTERECTOMY DOMINIQUE INCISION AND DRAINAGE OF ABSCESS Bilateral 12/30/2021 Surgeon: Arcadio Phipps MD; Location: [facility] OR LOCATION LAPAROSCOPIC OVARIAN CYSTECTOMY Right 07/28/2021 Surgeon: Tyshawn Pierce MD; Location: [facility] OR LOCATION Allergies Allergen Reactions Aspirin Rash and Shortness of Breath Iodine Other - See comments Levaquin [Levofloxacin] Rash Morphine Other - See comments "makes me the hulk" Penicillin Rash, Shortness of Breath and Swelling Zofran [Ondansetron Hcl] Rash Social HistoryTerza Scott reports that she has never smoked. She has never been exposed to tobacco smoke. She uses smokeless tobacco. She reports current alcohol use. She reports that she does not currently use drugs.Family Historyfamily history is not on file.MedicationsNo current outpatient medicationsSOCIALAlcohol: yesTobacco: noDrugs: former marijuanaREVIEW OF SYSTEMS: (bolded if positive, otherwise negative)Constitutional: Nausea, vomiting, fevers, chillsMsk: per HPI PHYSICAL EXAMINATION BP 112/83 | Pulse 71 | Temp 37.1 ?C (98.8 ?F) | Resp 19 | Wt 83.9 kg (185 lb) | SpO2 100% | BMI 28.13 kg/m? Constitutional: NAD, well-nourished Musculoskeletal:LUE:Small scabs presumably puncture wounds from dog bites on digits 2-3, no drainage4/4 Kanavel signs digits 2-4No sensation to digits 2-3, distal 4Ecchymosis on dorsal hand and 3rd fingerBCR all digitsSurgical scars on palmar wrist, radial thenar emminenceLabs:Recent Labs 01/11/499694 WBC 5.31 HGB 13.6 PLT 242 CREAT 0.57 NA 140 K 4.0 CL 108 CA 9.0 ESR/CRP pendingIMAGINGXR L wrist and hand shows prior surgical changes of distal radius and scaphoid ORIF, healed 4th prox phalanx fracture, No acute osseous abnormality; soft tissue swellingASSESSMENT Mitch Scott is a 37 year old female with L FTS s/p dog bites. Has had rabies vaccine and Ig, one dose each of rocephin, vancomycin, clindamycinPLAN: Diet: regular diet, NPOpmPain: multimodal- allergic to codeine and morphine, will try norco, tramadol, fentanyl- give benadryl PRN if reactionID: hold abx until intraop cultures can be obtainedWB: WBATActivity: PT/OTDVT Prophylaxis: SCDs, lovenox- allergic to aspirinDispo: admit to ortho, plan for OR tomorrow for I&D tomorrow with Dr. JulienPre-op Checklist :NPO yesConsent yesPost noSign surgical site yesLabs yes (CBC, BMP, PT/INR, PTT, CXR, EKG, lactate, UA type and screen, prepare units)Iram Benitez MDOrthopedic Surgery ssociated attestation - Radha Vernon MD - 01/11/2023 9:29 PM CDT I discussed the patient's management with the resident's. I reviewed the resident's note and agree with the documented findings and plan of care. Radha Vernon MD, MPHDepartment of Orthopaedic Surgery and Medical Officer Psychiatry Professor - Foot and Ankle DivisionMemorial Hermann [facility]34117-2History and physical [id number], Jie1.2.840.520074.1.13.104.2.7.2.315284Pdj qAtaKF1102-63-70Q10:29:18History and physical noteTXT1.2.840.871309.1.13.104.2.7.2.52604 9|[id number] for patient sfat91914-7Fedpplw and physical noteLNUT[address] NzopYerapfgcnPsywuixvyUNTP2930059483SQEBNK GPHXLNZUSTMBESRJ2154-52-46L59:29:181.2.840 .402764.1.72.3.15|1.2.840.935474.1.13.104. 2.7.2.727879_[id number] [facility] Notes Date/Time Note Provider Source 2023-01-14 16:35:37 /BZDEV+BQHlK0kqR9A63/oOve+4WGkzAq1 qW2TgJp4H3btr6QVfmgXLvlCYxWGzW3118 -08-30T16:35:37 TRANSITIONAL CARE MANAGEMENT ASSESSMENT01/14/2023 Mitch EdwardsVbmxho743961CBfkaas Marie Meador is a 37 year old /White female was admitted on 01/11/[address] She was discharged on 01/13/23 with discharge disposition of HR- Routine Discharge.Admitting Physician: Manish Vernonischarge Diagnosis: L MF FTS Linked Episodes Type: Episode: Status: Noted: Resolved: Last update: Updated by: TRANSITION OF CARE TCM Active 01/13/2023 01/14/2023 10:49 AM Elayne Romo RN Comments:01/13/2023 TCM Hfg-etzr-vz-face outreach documentation: Care Transition CM made f/u call to pt post-discharge x2. No response and call went to voicemail. CM left a discreet message with purpose of call and CM's call back information. Discharge AssessmentChart Assessed: 01/14/23TCM Outreach Completed: 01/14/23Future Appointments: Future Appointments Provider Department Dept Phone 01/28/2023 3:45 PM Mele Soria MD [facility] [phone] 61967-0Kfbcgonox encounter BopzYE7868-35-59F05:36:10Telephone encounter NoteTXT1.2.840.282568.1.13.104.2.7 .2.317554|[id number] for patient camk76079-3GlyyWK129070825Aewyym M Segura RN[address]vdGalvestonGalvestonTXTX[address] 28BYUJNGYFQODKJUALZSEHGC1240-76-38 T16:36:101.2.840.998739.1.72.3.15| 1.2.840.920039.1.13.104.2.7.2.7278 79_[id number] Elayne Romo RN [facility] 2023-01-14 10:49:41 caqXBvOfc7LnnIvpHktmU8j0OIHA88jGrF A1fH9DBgTYUo56XXn1jV+1Bb4AIa//2022T10:49:41 Care Transition CM made f/u call to pt post-discharge. No response and call went to voicemail. CM left a discreet message with purpose of call and CM's call back information. Elayne Romo RN, BSNCare Intermediate Manager-[place] [phone] signed by Elayne Romo RN at 01/14/2023 10:49 AM CQR25392-1Cjoahruph encounter PqkjMH1320-06-97R49:49:51Telephone encounter NoteTXT1.2.840.187769.1.13.104.2.7 .2.227433|[id number] for patient pzbx25114-4EsocYNHMPROOKI[address] StreetTXTX[address] 90LQILRZQZQQUPWHTVLTPRQC9459-99-22 T10:49:511.2.840.181698.1.72.3.15| 1.2.840.807176.1.13.104.2.7.2.7278 79_[id number] [facility] 2023-01-13 01:14:41 uO5bKQSVU1D2twF/Bnls9i37V7xLRASVTm oXIn2rKBw8W9GdbYEH99Biex6jdPlS7758 -08-29T01:14:41 Problem: PainGoal: Control of pain at or below patient's documented comfort goalOutcome: Progressing as expectedGoal: Reduction in pain sensationOutcome: Progressing as expected Problem: Falls, Risk ofGoal: Absence of fallsOutcome: Progressing as expected Problem: Infection RiskGoal: Absence of infectionOutcome: Progressing as expected Problem: Discharge PlanningGoal: Adequate for dischargeOutcome: Progressing as expectedGoal: Effective communicationOutcome: Progressing as expected 45886-7Evlx of care wiboYH9905-32-40N71:14:43Plan of care noteTXT1.2.840.468178.1.13.104.2.7 .2.689223|[id number] for patient qbcs14260-8CgzqUKHRKKPPHA[address]TXTX[address] 67RKVJNPKBFZPWKOHRGFSDFD3399-19-49 T01:14:431.2.840.341673.1.72.3.15| 1.2.840.581042.1.13.104.2.7.2.7278 79_[id number] [facility] 2023-01-12 00:38:14 XeqeJVboBSQgXaDrQ4HXPeETtOvBAD7SqT kquo5LIzOG6r2w2zY8TZqxfwTh19UH2130 -08-28T00:38:14 Problem: PainGoal: Control of pain at or below patient's documented comfort goalOutcome: Progressing as expectedGoal: Reduction in pain sensationOutcome: Progressing as expected Problem: Falls, Risk ofGoal: Absence of fallsOutcome: Progressing as expected Problem: Infection RiskGoal: Absence of infectionOutcome: Progressing as expected Problem: Discharge PlanningGoal: Adequate for dischargeOutcome: Progressing as expectedGoal: Effective communicationOutcome: Progressing as expected 19889-5Blgb of care jqadYH9808-85-30W26:38:16Plan of care noteTXT1.2.840.463074.1.13.104.2.7 .2.583922|[id number] for patient jlac26260-2MkmwAANFMZJIDE[address]vestonTXTX[address] 90AUUSCRYWFGCURNZINSGTYU1775-42-69 T00:38:161.2.840.708156.1.72.3.15| 1.2.840.849788.1.13.104.2.7.2.7278 79_[id number] [facility] 2023-01-11 19:52:00 xx7D1eGnCKvcbD+lMbdPmELUi/FYPlyxnw /2IpWSrm+lZl2TCJkZNts6mSVit8/L202T19:52:00 Pt transported to the floor via stretcher with [facility] transport. Patient aaox4, breathing even/unlabored, in NAD. Patient stable for transport at this time. [address]376-9Pfqsczmyw[address] [place] [address] CdcqYI4569-91-02X85:02:08Ememulticare [facility] hospital department NoteTXT1.2.840.350756.1.13.104.2.7 .2.119813|[id number] for patient jcxh28548-8NgjsGT844768939Byhmsdf R Davenport RN[address]vdGalvestonGalvestonTXTX[address] 54PQEXTCUKFQEUWAKVQTMLUI3857-83-57 T20:02:081.2.840.976036.1.72.3.15| 1.2.840.505808.1.13.104.2.7.2.7278 79_[id number] Denise Rick RN [facility] 2023-01-11 19:08:11 F1tRHojRBbW7DgWdNYWKl53LguXnzBMBib lre8Rpjo9mSmFlvD3rcgg3IUwsQNYV3875 -08-27T19:08:11 Shift change report given to DEVIN Walker. Reviewed chief complaint, assessment findings, allergies, MAR and orders. Plan of care discussed at bedside with patient and both nurses. Patient / family verbalized understanding of POC. 52659-6Fmofpkctn department SwwzTJ9871-13-95N14:08:21Ememulticare [facility] hospital department NoteTXT1.2.840.774693.1.13.104.2.7 .2.838163|[id number] for patient mwju93508-8ViryTE732449653Yuwzks Vik BELTRAN[address]TXTX[address] 99ANELAXDIMLSWISYYNZALNJ2953-27-93 T19:08:211.2.840.688907.1.72.3.15| 1.2.840.325507.1.13.104.2.7.2.7278 79_[id number] Tyson Chery RN [facility] 2023-01-11 18:38:44 3MF5nOaXBHVin8n4o9kKWNl2nRr3MnE/e3 JcmS7Lrd2BNk4H65EC+5Upcz7smG5M2732 -08-27T18:38:44 Report called to DEVIN De Anda on 1835 @ this time. WIRE STRANDER to place transportation request via TeleTrack system. Updated patient / family on progress of transfer. Awaiting transportation. 42825-8Jqailpwsb department FlcsNF7943-70-54J29:39:07Emergency department NoteTXT1.2.840.008309.1.13.104.2.7 .2.020119|[id number] for patient prtp49872-2SgumTSFBXJAUMX[address]TXTX[address] 77IHHZHGQPZMKWRXZSYSJIEL4733-33-54 T18:39:071.2.840.147903.1.72.3.15| 1.2.840.751277.1.13.104.2.7.2.7278 79_[id number] [facility] 2023-01-11 18:13:27 0eAKm7VZ8rZlFAXbUHs6Wj090SV+yEkzLw zoa0rgc37u0GL4C8n9wcTXztQGqUky3492 -08-27T18:13:27 Pt off unit off unit d/t x-ray. [address]72-1Ezzbmxcsq[address] BzybHH9987-70-13N27:13:49Emer[facility] department NoteTXT1.2.840.786011.1.13.104.2.7 .2.418789|[id number] for patient kbks90868-1NzazSKPNJWVAJI[address]TXTX[address] 74XIZILCMCCJUKJBLIIGDXAH2968-65-41 T18:13:491.2.840.499389.1.72.3.15| 1.2.840.270512.1.13.104.2.7.2.7278 79_[id number] [facility] 2023-01-11 18:12:19 CNHUmZNwLgO8JwTlEhaenLbIcr/8aYQB3Z yTM4CHNkskZoUInb9gCeT1vQrfXWRK7591 -08-27T18:12:19 Admin med per Mook MARSHALL MD at bedside, on the monitor, POC discussed, family at bedside and call light within reach. [address]17-6Zaaaleofe[address] IpwtRM9021-39-08N80:12:59Ememulticare valley hospital department NoteTXT1.2.840.357101.1.13.104.2.7 .2.698688|[id number] for patient hpaz08795-9XjwhLGSNINJDME[address]TXTX[address] 04MKYXAGPTQOWQTUUPPSRNLU1120-84-92 T18:12:591.2.840.229736.1.72.3.15| 1.2.840.156704.1.13.104.2.7.2.7278 79_[id number] [facility] 2023-01-11 17:25:41 SX6Goa/X8kwGBQTXu+Gl0o9cjArUHDZPmf oJB+rfoQPmypQfs0+g3ROlWW6hfSV13861 -08-27T17:25:41 EMS reported, "bitten by a dog x 3 days ago. Received rabid and tetanus shot. L hand swelling, difficulty to move mid-fingers."Ortho MD at bedside.Pt is A/Ox4/A, RA, RR e/u, L hand punctures, swelling, and discoloration noted. Painful, difficult to move digits and worsening. Denies SOB, CP and N/V/D. 94314-5Nbktzbbeh department UlkvPO3082-65-05F67:58:12Emergency department NoteTXT1.2.840.786007.1.13.104.2.7 .2.675430|[id number] for patient khop64926-4QhvlFCDOQTXTFP[address]TXTX[address] 01SEPKVZNSJXACEEXPPUDSOS9500-75-03 T18:58:121.2.840.519173.1.72.3.15| 1.2.840.738946.1.13.104.2.7.2.7278 79_[id number] [facility] 2023-01-11 17:22:21 iytZqj5XEJuAQhAzRDaERtl+ZmLIjovHpK GjjTjKzyRA7bqKuF7wOb/tP9GbJ/Ld17412022T17:22:21 Mitch Scott is a 37 year old female presents to ED aox4 and via EMS stretcher as a transfer from [place] for cc of left hand injury and pain. 3 days ago pt went to separate a dog fight and was bit by one of the dogs. Unknown status of the dog regarding the vaccination or ownership. Pt was seen in ED at the time and was given a tetanus and rabies shot. Since then, she complains of increased swelling and pain rating pain 10/10. Pt also has limited ROM and minimal sensation. 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 Pt to room 116 for further eval. Orthopaedic surgery paged at [phone] and md states that he will be down shortly to see patient. 29299-5Ftbuubhhc department Triage yqocIV7407-96-57H27:29:32Emer[facility] department Triage noteTXT1.2.840.990697.1.13.104.2.7 .2.339982|[id number] for patient tilo75102-4Wtvgdervk department AqdeLE720971864Rwcctjwzo Johnson RN[address]vdGalvestonGalvestonTXTX[address] 56ROTBVZOZFAROOLCWBJWSIS0034-29-27 T17:29:321.2.840.829984.1.72.3.15| 1.2.840.224503.1.13.104.2.7.2.7278 79_[id number] Geetha Avitia RN [facility] 2023-01-11 16:33:54 15c4iitMkurDitsV7Caf5Y8yJUwnazitra M7NVk2cXvfSkVkCUgKGC/hdKl7Abpk3082 -08-27T16:33:54 Patient en route to [facility] ER for further evaluation and treatment of left hand. Patient alert and in no distress upon leaving ED 77208-5Eyzuljgia department MebwUH1703-71-18K64:35:01[facility]mem[facility] department NoteTXT1.2.840.529911.1.13.104.2.7 .2.507993|[id number] for patient vznr41068-3HbtzLYHZNGUJRS[address]TXTX[address] 32UVTNTWPLIGZPMXZZWVJVGI7456-05-78 T16:35:011.2.840.348449.1.72.3.15| 1.2.840.143661.1.13.104.2.7.2.7278 79_[id number] [facility] 2023-01-11 16:28:11 zZuxtbJMwPFcS60EvS9ERWHmdbxETNvp3m L9b/h9XLI1BJozE6XaE/ypvuJBUW2n2832 -08-27T16:28:11 Nurse Report Report given to Rita BELTRAN at [facility]. Chief complaint, assessment findings, infusion verify and orders reviewed. Plan of care discussed at bedside with patient. Patient/family members verbalized [place] [address]-0Ltrafftlx department HaytVF6113-57-25Z04:28:37Emer[facility] department NoteTXT1.2.840.236078.1.13.104.2.7 .2.524298|[id number] for patient nmhv06426-4TeakCRSELSBWVH[address]TXTX[address] 02JYMDJDPIKBAXQWOSXXRVRX0877-69-72 T16:28:371.2.840.810094.1.72.3.15| 1.2.840.558407.1.13.104.2.7.2.7278 79_[id number] [facility] 2023-01-11 13:45:00 Nsr+EJNkghKQl9vCJXluYph5y/7Zn+j996 EOXMBqb5xdj8gypbhjV6+mctu8bRRq6410 -08-27T13:45:00 Rabavert rabies vaccine 2.5 units administered IM right deltoid as ordered.Hyperrab rabies immune globulin 1677 units administered in and around dog bites to left index finger, ring finger, and hand. Remainig 1 cc Hyperrab administered IM left deltoid. 92802-9Zbemnxooc department MtmxCE4955-45-26K57:40:11[facility] department NoteTXT1.2.840.967032.1.13.104.2.7 .2.236769|[id number] for patient sbnj52667-8ZzgsRXUDKRGCSP[address] XzedMlqgpwjczCybeupxfaCNIH07543450 77DRKUSJWHNFVZZZMWTILZXK9807-39-63 T16:40:111.2.840.911867.1.72.3.15| 1.2.840.700932.1.13.104.2.7.2.7278 79_[id number] [facility] 2023-01-11 12:25:25 NH12eqXmR+8CIJ9rpYCuiRoXBFFPxrxZPe g5qcRCZRd+MfDZ7kStJDAyri9szB309116 -08-27T12:25:25 Pt states "I was here Thursday with a dog bite to my left hand and now I have increased swelling and bruising that started last night." 25436-5Kzqwcbckk department Triage ckjoOH7370-77-32P16:26:42[facility] Triage noteTXT1.2.840.231269.1.13.104.2.7 .2.909239|[id number] for patient jgxf18432-9Pxyhwdvcy department [id number] N Dewoody RN[address] Se[id number] 08KPENLMVCHYQZSROVVLMBOB0250-57-11 T12:26:421.2.840.751454.1.72.3.15| 1.2.840.073814.1.13.104.2.7.2.7278 [id number] Katerine Luna RN [facility] 2023-01-11 12:22:00 Bsq+4QNa6uf6yFwfM3dGLnqZlyS9qgEh2N +2q3xlfQrKYqPLs8AmXzpO2C8UnO9C2367 -08-27T12:22:00 [facility] Emergency Department NotePatient Name: Mitch Jo of : 1985 37 year old femaleTreatment Room: [place] [address]Medical Record Number: [id number] Care Physician: [facility]ldon [facility] HospitalPatient Escorted by: Family [5]Mode of Arrival: Personal means [1]EMS Treatment Prior to ED Arrival: Travel and Exposure Screening:SymptomsDoes patient have any of these symptoms?: (not recorded)Exposure ScreeningHas patient had contact with someone with a communicable disease in the last month?: (not recorded)Diseases exposed to:: (not recorded)Is Patient ?: (not recorded)Exposure Date: (not recorded)Chief Complaint:Chief Complaint Patient presents with Hand Pain History of Present Illness:PT presents after being biten by a stray dog 2 days ago. Pt came to the ER but states she left after no one saw her. Pt states worsening swelling to the L hand, and she is L handed. Pt unsure of rabies status of dog. Pt states tetanus utd. Past Medical History/Immunizations:History reviewed. No pertinent past medical history. Allergies:Allergies Allergen Reactions Aspirin Rash and Shortness of Breath Iodine Other - See comments Levaquin [Levofloxacin] Rash Morphine Other - See comments "makes me the hulk" Penicillin Rash, Shortness of Breath and Swelling Zofran [Ondansetron Hcl] Rash Past Social History:Tobacco Use Never Passive Exposure: Never Smokeless Tobacco: Current user of smokeless tobacco. Vaping Use Never used Alcohol Use Yes. Comments: social Drug Use Not Currently. Sexual Activity Sexually active; Partners: Male; Control/Protection: Surgical. Past Surgical History:Past Surgical History: Procedure Laterality Date APPENDECTOMY CHOLECYSTECTOMY DIAGNOSTIC LAPAROSCOPY adhesions removal twice DIAGNOSTIC LAPAROSCOPY N/A 07/28/2021 Surgeon: Tyshawn Pierce MD; Location: [facility] OR LOCATION HYSTERECTOMY DOMINIQUE INCISION AND DRAINAGE OF ABSCESS Bilateral 12/30/2021 Surgeon: Arcadio Phipps MD; Location: [facility] OR LOCATION LAPAROSCOPIC OVARIAN CYSTECTOMY Right 07/28/2021 Surgeon: Tyshawn Pierce MD; Location: [facility] OR LOCATION Review of Systems: Review of Systems Constitutional: Negative for fever. Skin: Positive for color change and wound. Neurological: Positive for numbness. Tingling to the L hand Physical Exam: ED Triage Vitals [01/11/23 1227] Weight 83.9 kg (185 lb) Actual or estimated Estimated by patient/family report Height 1.727 m (5' 8") BP (!) 129/95 Pulse 85 Resp 20 Temp 37 ?C (98.6 ?F) Temp source Oral SpO2 100 % Measured on Room air Physical ExamVitals and nursing note reviewed. Constitutional: Appearance: Normal appearance. HENT: Head: Normocephalic. Cardiovascular: Rate and Rhythm: Normal rate. Pulmonary: Effort: Pulmonary effort is normal. Musculoskeletal: Comments: Swelling and ttp to the index/middle fingers, ecchymosis to the palm, ttp over flexor tendon/palm. Pain with extension/flexion of index/middle finger, bite merida to hand Neurological: General: No focal deficit present. Mental Status: She is alert and oriented to person, place, and time. Psychiatric: Mood and Affect: Mood normal. Behavior: Behavior normal. Thought Content: Thought content normal. Judgment: Judgment normal. Radiology:XR HAND 3+ VW LEFT Final Result ORDERING PHYSICIAN: IRVIN RENDON TECHNIQUE: Left hand 3 views STUDY QUALITY: Adequate HISTORY: concern for flexor tenosynovitis s/p dog bite COMPARISON: None FINDINGS: There are no acute fractures or dislocations. The joint spaces are preserved. There has been previous repair of a scaphoid and distal radial fracture. IMPRESSION No acute osseous abnormalities. RL: [id number] AFC: [id number] End of report Lab Results:Lab Results CBC WITH DIFF - Abnormal Result Value Ref Range WBC 5.31 4.30 - 11.10 10*3/?L RBC 3.91 (*) 3.93 - 5.25 10*6/?L HGB 13.6 11.6 - 15.0 g/dL HCT 40.3 35.7 - 45.2 % MCV 103.1 (*) 80.6 - 95.5 fL MCH 34.8 (*) 25.9 - 32.8 pg MCHC 33.7 31.6 - 35.1 g/dL RDW-SD 46.3 39.0 - 49.9 fL RDW-CV 12.1 12.0 - 15.5 % PLT 242 166 - 358 10*3/?L MPV 9.1 (*) 9.5 - 12.9 fL NRBC/100 WBC 0.0 0.0 - 10.0 /100 WBCs NRBC x10^3 <0.01 10*3/?L GRAN MAT (NEUT) % 60.0 % IMM GRAN % 0.20 % LYMPH % 32.0 % MONO % 5.1 % EOS % 2.3 % BASO % 0.4 % GRAN MAT x10^3(ANC) 3.19 1.88 - 7.09 10*3/uL IMM GRAN x10^3 <0.03 0.00 - 0.06 10*3/uL LYMPH x10^3 1.70 1.32 - 3.29 10*3/uL MONO x10^3 0.27 (*) 0.33 - 0.92 10*3/uL EOS x10^3 0.12 0.03 - 0.39 10*3/uL BASO x10^3 <0.03 0.01 - 0.07 10*3/uL POCT TEST - Normal POCT PREG Negative On board controls acceptable with C Line Yes POCT PREG LOT # [id number] POCT PREG TEST DATE 05/20/2024 COMP. METABOLIC PANEL (71168) NA 140 135 - 145 mmol/L K 4.0 3.5 - 5.0 mmol/L CL 108 98 - 108 mmol/L CO2 TOTAL 24 23 - 31 mmol/L AGAP 8 2 - 16 BUN 15 7 - 23 mg/dL GLUCOSE 107 70 - 110 mg/dL CREATININE 0.57 0.50 - 1.04 mg/dL TOTAL BILI 0.4 0.1 - 1.1 mg/dL CALCIUM 9.0 8.6 - 10.6 mg/dL T PROTEIN 7.6 6.3 - 8.2 g/dL ALBUMIN 4.4 3.5 - 5.0 g/dL ALK PHOS 68 34 - 122 U/L ALTv 22 5 - 35 U/L AST(SGOT) 40 13 - 40 U/L eGFR 118.7 mL/min/1.73m2 BLOOD CULTURE SCREEN BLOOD CULTURE SCREEN EKG:If EKG completed, see Procedure Note. Orders and Treatments:Orders Placed This Encounter Procedures XR HAND 3+ VW LEFT CBC WITH DIFF COMP. METABOLIC PANEL (91345) BLOOD CULTURE SCREEN BLOOD CULTURE SCREEN POCT TEST Orders Placed This Encounter Medications vancomycin (VANCOCIN) 1,000 mg in NaCl 0.9% (NS) 250 mL VIAL-MATE IV piggyback DISCONTD: cefTRIAXone (ROCEPHIN) 1,000 mg in NaCl 0.9% (NS) 100 mL MINI-BAG rabies vaccine, pcec (RABAVERT (PF)) injection 2.5 Units DISCONTD: rabies immune globulin (IMOGAM) injection 1,678.5 Units FENTanyl PF (SUBLIMAZE (PF)) injection 50 mcg clindamycin in 5 % dextrose (CLEOCIN) 900 mg/50 mL IV piggyback RTU 900 mg proMETHazine (PHENERGAN) 12.5 mg in NaCl 0.9% (NS) 50 mL IV piggyback FENTanyl PF (SUBLIMAZE (PF)) injection 50 mcg rabies immune globulin (PF) (HYPERRAB (PF)) injection 1,677 Units First Provider Eval:ED Events Date/Time Event User Comments 01/11/231228 Medical Screening Begins IRVIN RENDON MD -- 01/11/231228 First Provider Evaluation IRVIN RENDON MD -- No notes of EC Admission Criteria type on file.ED COURSEDiagnosis/Impression as of 01/11/23 1554 Dog bite, initial encounter Will obtain labs, administer abx, rabies vaccine/rabies IG. 15:05 Pt informed of results. Pt received abx. Pt to be transferred to [facility] Hand service, Dr. Vernon accepting faculty. Pt comfortable with plan. Procedures: ProceduresMDM:Medical Decision Afjqvk53 yo F [facility] Add[facility]:Dog bite, initial encounter: acute illness or injury Details: Started on abx, concern for flexor tenosynovitisAmount and/or Complexity of Data ReviewedLabs: ordered.Radiology: ordered.Discussion of management or test interpretation with external provider(s): Dr. Vernon [facility] HospitalRiskPrescription drug management.Parenteral controlled substances.Decision regarding hospitalization.Risk Details: Pt comfortable with plan to be transferred to [facility]. Flowsheet Documentation: Scoring Tools: No data recorded Disposition/Condition:ED Disposition None Discharge Medications:Patient's Medications START taking these medications No medications on file CONTINUE taking these medications which have NOT CHANGED AZITHROMYCIN (ZITHROMAX Z-KAYA) 250 MG TABLET Take 1 tablet by mouth SEE-INSTRUCTIONS. Take 500 mg day 1, then 250 mg days 2 to 5. BENZONATATE 200 MG CAPSULE Take 1 capsule by mouth 3 (three) times daily as needed for Cough for up to 20 doses. FAMOTIDINE (PEPCID) 40 MG TABLET Take 1 tablet by mouth in the morning. LEVALBUTEROL (XOPENEX) 1.25 MG/3 ML NEBULIZER SOLUTION Inhale 1.25 mg in the morning and 1.25 mg at noon and 1.25 mg in the evening. METOCLOPRAMIDE HCL 10 MG TABLET Take 1 tablet by mouth every 6 (six) hours as needed for Nausea and Vomiting (N/V). ONDANSETRON 4 MG DISINTEGRATING TABLET Take 1 tablet by mouth every 8 (eight) hours as needed for Nausea and Vomiting (N/V). POLYETHYLENE GLYCOL 3350 (MIRALAX) 17 GRAM POWDER Take 1 Packet by mouth every 4 (four) hours as needed for Constipation for up to 12 doses. PREDNISONE 20 MG TABLET 1 PO BID x 4 days PROMETHAZINE 25 MG TABLET Take 1 tablet by mouth every 6 (six) hours as needed for Nausea and Vomiting (N/V). START taking Modified Medications as Prescribed No medications on file STOP taking these medications No medications on file Follow-up:Electronically signed by: Irvin Rendon MD01/11/23 1507 Irvin Rendon MD01/11/23 1554 43960-6Skpitowjq Emergency department OpsoFL6342-59-73B32:54:24[facility] Emergency department NoteTXT1.2.840.654352.1.13.104.2.7 .2.566033|[id number] for patient jimh60441-4Fnlebxoxz department Note[id number] 75TACCLHSDXSLZKGRDJNCCLN1631-68-21 T15:54:241.2.840.473519.1.72.3.15| 1.2.840.884686.1.13.104.2.7.2.7278 [id number] [facility] 2023-01-10 00:00:00 qAE0wk8dGBLPa1jKs8CNdu6+fnCYw/wcLW ruiM9KQIov+2+H+c7lo4S6RY7QTpZW7859 -08-26T00:00:00 PT ELOPE PRIOR TO DISPO. LAST SEEN IN STABLE CONDITION, AOx4, NO ATAXIA NOTED. PT DID NOT NOTIFY STAFF OR SIGN AMA PAPERS. 21954-2Yrkpljrhx department ArmjWK7096-84-51Z75:06:38[facility] department NoteTXT1.2.840.650637.1.13.104.2.7 .2.945134|[id number] for patient ojnx27424-2OjcrAV204311068Gslvgu R Goodrich RNUT[address]TXTX[address] 15GLLDYPSEPSGIKYFPWWLPCZ2522-53-52 T01:06:381.2.840.957885.1.72.3.15| 1.2.840.103877.1.13.104.2.7.2.7278 [id number] Angelica Gorman RN [facility] 2023-01-09 22:37:08 RbGz8z6Y/lGMX3FJcE3TArzgES87lHFcjF RglTvb3KSEGgPdNPboF3TPpkSk6cJc8457 -08-25T22:37:08 Notified [facility] dispatch of dog bite. 23770-4Shhhyekue department BmroTY8709-97-21Z69:37:27[facility] NoteTXT1.2.840.197435.1.13.104.2.7 .2.727933|[id number] for patient uxoq54975-0IwknMNKKSYVBMA[address]vdGalvestonGalvestonTXTX[address] 57HXBLGTYTCYKSZMATAMDNLP2940-22-69 T22:37:271.2.840.354511.1.72.3.15| 1.2.840.093251.1.13.104.2.7.2.7278 [id number] [facility] 2023-01-09 21:52:39 v/C2XjANnp6gSyRt49gJs7bxIDga7if2yl wLSGGYINsKTpLfLkqccp/S1531WOVh4278 -08-25T21:52:39 Pt was trying to break up a dog fight and got bit three times on the left hand multiple puncture wounds and swelling. Bleeding controlled. 18563-2Rrmkxqruf department Triage rjvpCU0154-34-73O34:53:54[facility] department Triage noteTXT1.2.840.943892.1.13.104.2.7 .2.218507|[id number] for patient jcqh84103-5Ytktoqavy department CtitQO925257393Qjzbwrql R Moss RNUT[address] Or[id number] 20RORZVTZTEZWKTTMTTZSCXL7906-31-00 T21:53:541.2.840.049976.1.72.3.15| 1.2.840.837510.1.13.104.2.7.2.7278 [id number] Lane Hawk RN [facility] 2022-12-10 12:52:56 /Q4x9Adht/8ly//0P23kBwzOe18/PPkFcK u+HLp2af9rcsGJ9ehU48zFPwvDNYhz2843 -07-26T12:52:56 Pt given printed and verbal discharge instructions regarding dysuria, UTI, encouraged hydration,1 Prescriptions sent to pharmacy.Discussed ibuprofen and to take with food to avoid GI distress.Discussed antibiotic therapy and to take until all completed unless adverse reaction occurs - if occurs, discontinue medication and follow up with pcp/seek medical attention.Pt verbalized understanding of instructions, pt awake alert oriented, resp reg unlabored, skin w/d, color appropriate for race, moves all ext well,pt encouraged to follow up with pcp.Advised to seek medical attention for new/prolonged/worsening of symptoms,Symptoms improved.No adverse reaction to meds given in ER noted upon discharge.Awake, alert oriented, resp reg unlabored, skin w/d, pt leaving amb with steady gait, in no apparent distress. 50804-0Shrkqzdip department HdobFD2021-26-08Y73:54:14[facility] department NoteTXT1.2.840.855150.1.13.104.2.7 .2.560446|[id number] for patient pxzk447893154Hgyeem M Herrera RN[address]TXTX[address] 58CIPDRODRTVMWXTNWAWVXWI4355-99-38 T12:54:141.2.840.214161.1.72.3.15| 1.2.840.820711.1.13.104.2.7.2.7278 [id number] Rafia Pierre RN [facility] 2022-12-10 11:19:08 Lc+2v/SU5U0fE0LlvG5q9ULRFHEedHMcEA X7oUeCYmugotvL2sZmLCdaTE6sb6kD9673 -07-26T11:19:08 Patient complaining of painful urination with fever. Pain to lower abdomen and radiates to back 3-5 days. 93863-5Mwmammaux department Triage riesSY9584-45-53G52:19:49Emergency department Triage noteTXT1.2.840.128355.1.13.104.2.7 .2.591101|[id number] for patient [id number] D Wierzbicki RN[address]TXTX[address] 31ZJOJACMMRGCVYXYBKWTIAT2646-06-77 T11:19:491.2.840.881914.1.72.3.15| 1.2.840.426071.1.13.104.2.7.2.7278 [id number] Tavares Garza RN [facility] 2022-12-10 11:13:00 myLSXKsEHLHxtSdKRjiFZTGu31Tl08DtyF wy9e6Dcf9mEJEKf+jK1t4Kv1oMEhiP4346 -07-26T11:13:00 [facility] Emergency Department NotePatient Name: Mitch Jo of : 1985 37 year old femaleTreatment Room: TX1/CU4Jhdexix Record Number: [id number] Care Physician: Sheldon [facility]uso 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 No nausea or vomiting. No abdominal pain. She does complain of some back pain. She reports a fever at home up to 102 orally. She last took Tylenol yesterday. She is also been taking Azo for the past several days last had a dose yesterday. No medications for her symptoms today.Here for evaluation.Past Medical History/Immunizations:History reviewed. No pertinent past medical history.Tetanus received in last 5 years: UnknownChildhood immunizations: Up-to-date Allergies:Allergies Allergen Reactions Aspirin Rash and Shortness of Breath Iodine Other - See comments Levaquin [Levofloxacin] Rash Morphine Other - See comments "makes me the hulk" Penicillin Rash, Shortness of Breath and Swelling Zofran [Ondansetron Hcl] Rash Past Social History:Tobacco Use Never Passive Exposure: Never Smokeless Tobacco: Current user of smokeless tobacco. Vaping Use Never used Alcohol Use Yes. Comments: social Drug Use Not Currently. Sexual Activity Sexually active; Partners: Male; Control/Protection: Surgical. Past Surgical History:Past Surgical History: Procedure Laterality Date APPENDECTOMY CHOLECYSTECTOMY DIAGNOSTIC LAPAROSCOPY adhesions removal twice DIAGNOSTIC LAPAROSCOPY N/A 07/28/2021 Surgeon: Tyshawn Pierce MD; Location: [facility] OR LOCATION HYSTERECTOMY DOMINIQUE INCISION AND DRAINAGE OF ABSCESS Bilateral 12/30/2021 Surgeon: Arcadio Phipps MD; Location: [facility] OR LOCATION LAPAROSCOPIC OVARIAN CYSTECTOMY Right 07/28/2021 Surgeon: Tyshawn Pierce MD; Location: [facility] OR LOCATION Review of Systems: Review of Systems Constitutional: Positive for fever. Negative for chills. Respiratory: Negative for cough and shortness of breath. Cardiovascular: Negative for chest pain. Gastrointestinal: Negative for abdominal pain, nausea and vomiting. Genitourinary: Positive for dysuria, urgency and flank pain. Musculoskeletal: Negative for arthralgias, neck pain and neck stiffness. Skin: Negative for wound. Neurological: Negative for dizziness. Psychiatric/Behavioral: Negative for agitation. Endocrine: Negative for goiter. Physical Exam: ED Triage Vitals [12/10/22 1120] Weight 86.2 kg (190 lb) Actual or estimated Height 1.727 m (5' 8") BP (!) 143/105 Pulse 75 Resp 18 Temp 36.7 ?C (98.1 ?F) Temp src SpO2 100 % Measured on Physical ExamVitals and nursing note reviewed. Constitutional: Appearance: Normal appearance. She is normal weight. HENT: Head: Normocephalic and atraumatic. Mouth/Throat: Mouth: Mucous membranes are dry. Cardiovascular: Rate and Rhythm: Normal rate and regular rhythm. Pulmonary: Effort: Pulmonary effort is normal. No respiratory distress. Breath sounds: No wheezing. Abdominal: General: There is no distension. Palpations: Abdomen is soft. There is no mass. Tenderness: There is no abdominal tenderness. There is right CVA tenderness and left CVA tenderness. Hernia: No hernia is present. Musculoskeletal: General: Normal range of motion. Cervical back: Normal range of motion and neck supple. Skin: General: Skin is warm and dry. Neurological: General: No focal deficit present. Mental Status: She is alert and oriented to person, place, and time. Radiology:No orders to display Lab Results:Lab Results URINALYSIS - Abnormal Result Value Ref Range APPEARANCE Clear Clear COLOR Serene (*) Yellow PH 6.0 4.8 - 8.0 SP GRAVITY 1.016 1.003 - 1.030 GLU U QUAL Normal Normal BLOOD 1+ (*) Negative KETONES Negative Negative PROTEIN Negative Negative UROBILIN 4.0 mg/dL (*) Normal BILIRUBIN Negative Negative NITRITE Positive (*) Negative LEUK TAIWO Negative Negative RBC/HPF <1 0 - 3 HPF WBC/HPF 1 0 - 5 HPF BACTERIA Negative Negative POCT TEST - Normal POCT PREG Negative On board controls acceptable with C Line Yes POCT PREG LOT # [id number] POCT PREG TEST DATE 05-20-2024 EKG:If EKG completed, see Procedure Note. Orders and Treatments:Orders Placed This Encounter Procedures URINALYSIS POCT TEST Orders Placed This Encounter Medications HYDROcodone-acetaminophen (NORCO 5) 5-325 mg tablet 1 tablet cefUROXime 500 mg tablet First Provider Eval:ED Events Date/Time Event User Comments 12/10/22 1115 Medical Screening Begins DREA CANTU DO -- 12/10/22 1115 First Provider Evaluation DREA CANTU DO -- ED COURSEDiagnosis/Impression as of 12/10/22 1247 Dysuria Pyelonephritis Procedures: ProceduresMDM:Medical Decision MakingThe patient presents from home for evaluation for 3 to 5 days of dysuria, urgency and frequency. No abdominal pain. No nausea or vomiting. She does complain of fevers at home up to 102 degrees orally as well as flank pain. She last had some Tylenol yesterday. No Motrin or Tylenol today. She is also been using Azo at home and last had a dose yesterday. No history of diabetes.Vital signs are stable in the ER.Her abdomen is soft and nontender.She does have bilateral CVA tenderness on examination.Differential diagnosis includes pyelonephritis, UTI.We will check a urinalysis.Anticipate discharge home later.1245 -the patient is doing well in the ERHer urinalysis shows an infection.As she does have the bilateral flank pain we will treat her for pyelonephritis.She remained stable here in the ER and is okay for discharge home with PCP follow-up.Problems Addressed:Dysuria: acute illness or injuryAmount and/or Complexity of Data ReviewedLabs: ordered. Decision-making details documented in ED Course.RiskPrescription drug management. Flowsheet Documentation: Scoring Tools: No data recorded Disposition/Condition:ED Disposition ED Disposition Disch - Home Condition Stable Comment -- Discharge Medications:Patient's Medications START taking these medications CEFUROXIME 500 MG TABLET Take 1 tablet by mouth in the morning and 1 tablet in the evening. Do all this for 7 days. CONTINUE taking these medications which have NOT CHANGED AZITHROMYCIN (ZITHROMAX Z-KAYA) 250 MG TABLET Take 1 tablet by mouth SEE-INSTRUCTIONS. Take 500 mg day 1, then 250 mg days 2 to 5. BENZONATATE 200 MG CAPSULE Take 1 capsule by mouth 3 (three) times daily as needed for Cough for up to 20 doses. FAMOTIDINE (PEPCID) 40 MG TABLET Take 1 tablet by mouth in the morning. LEVALBUTEROL (XOPENEX) 1.25 MG/3 ML NEBULIZER SOLUTION Inhale 1.25 mg in the morning and 1.25 mg at noon and 1.25 mg in the evening. METOCLOPRAMIDE HCL 10 MG TABLET Take 1 tablet by mouth every 6 (six) hours as needed for Nausea and Vomiting (N/V). ONDANSETRON 4 MG DISINTEGRATING TABLET Take 1 tablet by mouth every 8 (eight) hours as needed for Nausea and Vomiting (N/V). POLYETHYLENE GLYCOL 3350 (MIRALAX) 17 GRAM POWDER Take 1 Packet by mouth every 4 (four) hours as needed for Constipation for up to 12 doses. PREDNISONE 20 MG TABLET 1 PO BID x 4 days PROMETHAZINE 25 MG TABLET Take 1 tablet by mouth every 6 (six) hours as needed for Nausea and Vomiting (N/V). START taking Modified Medications as Prescribed No medications on file STOP taking these medications No medications on file Follow-up:Electronically signed by: Drea Cantu DO12/10/22 1247 65912-4Dfceilsld Emergency department LsghNM2048-68-78J20:47:05[facility] Emergency department NoteTXT1.2.840.772794.1.13.104.2.7 .2.215742|[id number] for patient care[address] Ef[id number] 58SCNMGDPVPKWCFEKJDUIZAR0058-63-71 T12:47:051.2.840.923103.1.72.3.15| 1.2840.589368.1.13.104.2.7.2.7278 [id number] [facility]
[2023-07-24 13:28] LABS: Absolute Lymphocytes (CBC) 1.5 K/uL (0.7-4.9); Basophils % 0.4 % (0-1.3); Hematocrit 39.9 % (36.0-45.0); Lymphocytes % 23.8 % (15.3-44.8); MCV 103.1 fL (80-100); MPV 7.1 fL (7.6-11.3); Platelets 243 thou/uL (152-406); RBC Red Blood Cell Count 3.87 M/uL (3.86-4.86)
[2023-07-24 13:29] LABS: Protime INR 0.97
--- NOTE | 2023-07-24 14:11 | RAD REPORT ---
EXAM DESCRIPTION: RAD - Chest Single View - 07/24/2023 2:03 pm CLINICAL HISTORY: CHEST PAIN COMPARISON: <Comparisons> FINDINGS: Lines: None. Lungs: No evidence of edema or pneumonia. Pleural: No significant pleural effusions or pneumothorax. Cardiac: The heart size is within normal limits. Mediastinum: Within normal limits. Bones: No acute fractures. Thoracolumbar curvature . Other: None IMPRESSION: No acute cardiopulmonary disease.
[2023-07-24 14:15] LABS: Specific Gravity 1.024 (1.005-1.030)
[2023-07-24 14:21] LABS: Specific Gravity 1.024 (1.005-1.030); Urine Bacteria None Seen /HPF (<20); Urine Bilirubin NEGATIVE (Negative); Urine Blood Negative (Negative); Urine Clarity Turbid (Clear); Urine Color Light-Yellow (Yellow); Urine Glucose NEGATIVE (Negative); Urine Mucus 1+ /HPF (None Seen); Urine Protein NEGATIVE (Negative); Urine RBC <5 /HPF (None Seen); Urine Urobilinogen Normal (Normal); Urine pH 6.5 (5.0-7.0)
[2023-07-24 14:25] LABS: Barbiturates NEGATIVE (NEGATIVE); Benzodiazepines NEGATIVE (NEGATIVE); Cocaine NEGATIVE (NEGATIVE); METHAMPHETAM NEGATIVE (NEGATIVE); Methadone NEGATIVE (NEGATIVE); Opiates NEGATIVE (NEGATIVE); Phencyclidine NEGATIVE (NEGATIVE); THC Cannibis POSITIVE (NEGATIVE)
[2023-07-24 14:25] LABS: Albumin/Globulin Ratio 1.1 (1.1-1.8); Anion Gap 7.2 mEq/L (5.0-15.0); Bilirubin Direct 0.1 mg/dL (0-0.2); Bilirubin Indirect, Calculated 0.2 mg/dL (0.2-0.8); Bilirubin Total 0.3 mg/dL (0.2-1.0); Magnesium 2.4 mg/dL (1.6-2.4); Potassium 4.2 mEq/L (3.5-5.1); Protein, Total 7.6 g/dL (6.4-8.2); Troponin High Sensitivity 3.4 pg/mL (<58.9)
--- NOTE | 2023-07-24 18:38 | EDPHYS ---
Physician Documentation [facility] Name: Fide Scott Age: 37 yrs Sex: Female : 1985 Arrival Date: 07/24/2023 Time: 13:07 Bed 8 Private MD: ED Physician Sina Rodriguez HPI: 07/23 13:20 This 37 yrs old Female presents to ER via EMS with complaints of Chest Pain. cp 13:20 The patient or guardian reports chest pain that is located primarily in the anterior cp chest wall, left. The pain radiates to the left arm, the left shoulder, left neck. Associated signs and symptoms: Pertinent positives: nausea, shortness of breath, Pertinent negatives: abdominal pain, cough, diaphoresis, lower extremity pain, lower extremity swelling, vomiting. The chest pain is described as aching. Duration: The patient or guardian reports a single episode, that is still ongoing, but improving, started yesterday about 1600. EMS care prior to arrival includes: nitroglycerin, with partial relief of the chest pain. Historical: - Allergies: 13:19 Aspirin; ph 13:19 Iodinated Contrast Media - IV Dye; ph 13:19 Iodine; ph 13:19 Levaquin; ph 13:19 Morphine; ph 13:19 PENICILLINS; ph - PSHx: 13:19 Appendectomy; Cholecystectomy; cystectomy; ph - Immunization history:: Adult Immunizations. - Social history:: Smoking status: Patient denies any tobacco usage or history of. ROS: 13:25 Constitutional: Negative for body aches, chills, fever, poor PO intake, cp 13:25 Eyes: Negative for injury, pain, redness, and discharge, cp 13:25 ENT: Negative for drainage from ear(s), ear pain, sore throat, difficulty swallowing, difficulty handling secretions, 13:25 Cardiovascular: Positive for chest pain, 13:25 Respiratory: Negative for cough, wheezing, 13:25 Abdomen/GI: Negative for abdominal pain, vomiting, diarrhea, constipation, 13:25 Back: Negative for injury or acute deformity, decreased range of motion, 13:25 Neuro: Negative for altered mental status, headache, syncope, weakness, 13:25 All other systems are negative, Exam: 13:25 ECG was reviewed by the Attending Physician. cp 13:30 Constitutional: The patient appears in no acute distress, alert, awake, cp non-diaphoretic, non-toxic, well developed, well nourished, uncomfortable, 13:30 Head/Face: Normocephalic, atraumatic. cp 13:30 Eyes: Periorbital structures: appear normal, Pupils: equal, round, and reactive to light and accomodation, Extraocular movements: intact throughout, Conjunctiva: normal, no exudate, no injection, Corneas: are normal, Sclera: no appreciated abnormality, Lids and lashes: appear normal, bilaterally, 13:30 ENT: External ear(s): are unremarkable, Nose: is normal, Mouth: Lips: moist, Oral mucosa: pink and intact, moist, Posterior pharynx: Airway: no evidence of obstruction, patent, 13:30 Neck: ROM/movement: Meningeal signs: are not present, nuchal rigidity, is not appreciated, 13:30 Chest/axilla: Inspection: normal, Palpation: crepitus, is not appreciated, tenderness, that is moderate, of the anterior aspect of left upper chest, 13:30 Cardiovascular: Rate: normal, Rhythm: regular, Edema: is not appreciated, JVD: is not appreciated, 13:30 Respiratory: the patient does not display signs of respiratory distress, Respirations: normal, no use of accessory muscles, no retractions, labored breathing, is not present, Breath sounds: are clear throughout, no decreased breath sounds, no stridor, no wheezing, 13:30 Abdomen/GI: Inspection: abdomen appears normal, Palpation: abdomen is soft and non-tender, in all quadrants, 13:30 Back: CVA tenderness, is absent, 13:30 Neuro: Orientation: to person, place \T\ time. Mentation: is normal, Motor: moves all fours, strength is normal, Sensation: no obvious gross deficits, Vital Signs: 13:16 BP 137 / 91; Pulse 84; Resp 18; Temp 97.4; Pulse Ox 100% on R/A; Weight 72.57 kg; ph Height 5 ft. 8 in. ; 16:08 BP 125 / 86; Pulse 80; Resp 18; Pulse Ox 100% on R/A; mb9 17:08 BP 117 / 82; Pulse 67; Resp 18; Pulse Ox 98% on R/A; ph 18:02 BP 103 / 72; Pulse 76; Resp 18; Pulse Ox 100% on R/A; ph 13:16 Body Mass Index 24.33 (72.57 kg, 172.72 cm) ph MDM: 13:12 Patient medically screened. cp 14:00 Differential diagnosis: abnormal EKG, acute myocardial infarction, cholecystitis, cp Cholelithiasis costochondritis, pancreatitis, pericarditis, pleurisy, pneumonia, pneumothorax, pulmonary embolus, thoracic aortic disection. 18:38 Data reviewed: vital signs, nurses notes, lab test result(s), EKG, radiologic studies, cp plain films. 18:38 Consideration of Admission/Observation Escalation of care including cp admission/observation considered. I considered the following discharge prescriptions or medication management in the emergency department Medications were administered in the Emergency Department. See MAR. Independent interpretation of the following test(s) in the Emergency Department EKG: See my EKG interpretation above. Counseling: I had a detailed discussion with the patient and/or guardian regarding the historical points, exam findings, and any diagnostic results supporting the discharge/admit diagnosis, lab results, radiology results, to return to the emergency department if symptoms worsen or persist or if there are any questions or concerns that arise at home. Response to treatment: the patient's symptoms have markedly improved after treatment, and as a result, I will discharge patient. Special discussion: Based on the patient's history, exam, and Dx evaluation, there is no indication for emergent intervention or inpatient Tx. It is understood by the patient/guardian that if the Sx's persist or worsen they need to return immediately for re-evaluation. 07/23 13:13 Order name: Basic Metabolic Panel; Complete Time: 14:45 cp 07/23 14:45 Interpretation: Normal except: CL 111; BUN 19. cp 07/23 13:13 Order name: CBC with Diff; Complete Time: 14:45 cp 07/23 14:45 Interpretation: Normal except: MCV 103.1; MCH 35.6; MPV 7.1. cp 07/23 13:13 Order name: LFT's; Complete Time: 14:45 cp 07/23 14:51 Interpretation: Normal except: AST 13; GLOB 3.6. cp 07/23 13:13 Order name: Magnesium; Complete Time: 14:45 cp 07/23 13:13 Order name: NT PRO-BNP; Complete Time: 14:45 cp 03/08 13:13 Order name: PT-INR; Complete Time: 14:45 cp 03/08 13:13 Order name: Troponin HS; Complete Time: 14:45 cp 03/08 13:24 Order name: UDS; Complete Time: 14:45 cp 03/08 14:45 Interpretation: Normal except: THC POSITIVE. cp 03/08 13:24 Order name: Test, Urine; Complete Time: 14:45 cp 03/08 13:24 Order name: Urinalysis W/Microscopic; Complete Time: 14:45 cp 03/08 13:24 Order name: COVID-19 SARS RT PCR; Complete Time: 14:45 cp 03/08 16:12 Order name: Troponin HS; Complete Time: 18:37 cp 03/08 13:13 Order name: XRAY Chest (1 view); Complete Time: 14:45 cp /08 13:13 Order name: EKG; Complete Time: 13:13 cp /08 13:13 Order name: Cardiac monitoring; Complete Time: 13:22 cp 08 13:13 Order name: EKG - Nurse/Tech; Complete Time: 13:19 cp 08 13:13 Order name: IV Saline Lock; Complete Time: 13:21 cp /08 13:13 Order name: Labs collected and sent; Complete Time: 13:21 cp /08 13:13 Order name: O2 Per Protocol; Complete Time: 13:21 cp /08 13:13 Order name: O2 Sat Monitoring; Complete Time: 13:21 cp /08 16:12 Order name: EKG - Nurse/Tech; Complete Time: 18:01 cp EC:25 Rate is 74 beats/min. Rhythm is regular. MN interval is normal. QRS interval is normal. cp QT interval is normal. T waves are Inverted in lead aVR. Interpreted by me. Reviewed by me. Administered Medications: 13:50 Drug: Ketorolac IVP 15 mg IVP once Route: IVP; Site: right antecubital; ph 19:03 Follow up: Response: No adverse reaction ph 13:50 Drug: NS 0.9% IV 1000 ml IV at 1 bolus Per protocol; 1000 mL bolus Route: IV; Rate: 1 ph bolus; Site: right antecubital; 15:00 Follow up: Response: No adverse reaction; IV Status: Completed infusion ph 14:10 Not Given (Physician Discretion): [id number] mg IVP once cp 14:10 Not Given (Physician Discretion): ondansetron 4 mg IVP once; over 2 minutes cp 14:10 Not Given (Physician Discretion): [id number] mg IVP once; over 1 to 2 minutes cp 14:19 Drug: Promethazine IVP 25 mg IVP once Route: IVP; Site: right antecubital; ph 19:03 Follow up: Response: No adverse reaction ph 16:15 Drug: Decadron - Dexamethasone IVP 10 mg IVP once Route: IVP; Site: right antecubital; ph 19:03 Follow up: Response: No adverse reaction ph 16:15 Drug: Methocarbamol IVPB 1 grams IVPB once over 1 hrs; (mix in NS 100 mL) Route: IVPB; ph Infused Over: 1 hrs; Site: right antecubital; 19:05 Follow up: Response: No adverse reaction; IV Status: Completed infusion ph Disposition Summary: 07/24/23 18:38 Discharge Ordered Notes: Location: Home cp Problem: new cp Symptoms: have improved cp Condition: Stable cp Diagnosis - Chest pain, unspecified cp Followup: cp - With: Private Physician - When: 2 - 3 days - Reason: Recheck today's complaints Discharge Instructions: - Discharge Summary Sheet cp - Nonspecific Chest Pain, Adult cp - Chest Wall Pain cp Forms: - Medication Reconciliation Form cp - Thank You Letter cp - Antibiotic Education cp - Prescription Opioid Use cp - Patient Portal Instructions cp - Leadership Thank You Letter cp Prescriptions: - Diclofenac Sodium 75 mg Oral Tablet Sustained Release - take 1 tablet ORAL route 2 times per day; 30 tablet; Refills: 0, Product cp Selection Permitted - methocarbamol 750 mg Oral tablet - take 1 tablet ORAL route 3 times per day; 30 tablet; Refills: 0, Product cp Selection Permitted Signatures: Dispatcher [employer] Tigist Knight RN RN ph Sina Pemberton PA PA cp Corrections: (The following items were deleted from the chart) 13:20 13:19 Allergies: ondansetron; ph ph
--- NOTE | 2023-07-24 18:38 | ER ---
Nurse's Notes [facility] Name: Fide Scott Age: 37 yrs Sex: Female : 1985 Arrival Date: 07/24/2023 Time: 13:07 Bed 8 Private MD: Diagnosis: Chest pain, unspecified Presentation: 07/23 13:16 Chief complaint: EMS states: C/O chest pain that started yesterday at 4 pm, reports ph that it radiates from L wrist, up L arm, to L jaw and L side of chest, also c/o nausea and increased pain w/ breathing, EMS administered SL nitrox2, 4mg Zofran, 324 ASA, 20 G to RAC, 12 lead NSR, pt reports cardiac hx. Coronavirus screen: Vaccine status: Patient reports receiving the 2nd dose of the covid vaccine. Ebola Screen: No symptoms or risks identified at this time. Initial Sepsis Screen: Does the patient meet any 2 criteria? No. Patient's initial sepsis screen is negative. Does the patient have a suspected source of infection? No. Patient's initial sepsis screen is negative. Risk Assessment: Do you want to hurt yourself or someone else? Patient reports no desire to harm self or others. 13:16 Method Of Arrival: EMS: [facility] 13:16 Acuity: MONIK 3 ph 13:22 Onset of symptoms was July 24, 2023. Triage Assessment: 13:20 General: Appears in no apparent distress. Behavior is calm, cooperative. Pain: ph Complains of pain in left arm Pain radiates to chest. Neuro: Level of Consciousness is awake, alert, obeys commands, Oriented to person, place, time, situation. Cardiovascular: Reports chest pain, lightheadedness, nausea, shortness of breath, Capillary refill < 3 seconds in bilateral fingers Patient's skin is warm and dry. Chest pain quality is sharp, is located in left anterior chest wall radiates to left arm(s) jaw(s) began 1 day ago. Respiratory: Airway is patent Respiratory effort is even, unlabored, Respiratory pattern is regular, symmetrical. Historical: - Allergies: 13:19 Aspirin; ph 13:19 Iodinated Contrast Media - IV Dye; ph 13:19 Iodine; ph 13:19 Levaquin; ph 13:19 Morphine; ph 13:19 PENICILLINS; ph - PSHx: 13:19 Appendectomy; Cholecystectomy; cystectomy; ph - Immunization history:: Adult Immunizations. - Social history:: Smoking status: Patient denies any tobacco usage or history of. Screenin:20 [facility] ED Fall Risk Assessment (Adult) History of falling in the last 3 months, ph including since admission No falls in past 3 months (0 pts) Confusion or Disorientation No (0 pts) Intoxicated or Sedated No (0 pts) Impaired Gait No (0 pts) Mobility Assist Device Used No (0 pt) Altered Elimination No (0 pt) Score/Fall Risk Level 0 - 2 = Low Risk Oriented to surroundings, Maintained a safe environment, Provided non-skid footwear, Hourly rounding (assess needs \T\ fall precautionary measures) done. Abuse screen: Denies threats or abuse. Denies injuries from another. Nutritional screening: No deficits noted. Tuberculosis screening: No symptoms or risk factors identified. Assessment: 14:00 General: Appears in no apparent distress. uncomfortable, Behavior is calm, cooperative, ph appropriate for age. Pain: Complains of pain in chest and left arm. Neuro: Level of Consciousness is awake, alert, obeys commands, Oriented to person, place, time, situation. Cardiovascular: Capillary refill < 3 seconds in bilateral fingers Patient's skin is warm and dry. Cardiovascular: Reports chest pain, nausea, shortness of breath. Respiratory: Airway is patent Respiratory effort is even, unlabored, Respiratory pattern is regular, symmetrical. GI: Reports nausea. Derm: Skin is pink, warm \T\ dry. 15:00 Reassessment: Patient appears in no apparent distress at this time. Patient and/or ph family updated on plan of care and expected duration. Pain level reassessed. Patient is alert, oriented x 3, equal unlabored respirations, skin warm/dry/pink. 16:00 Reassessment: Patient appears in no apparent distress at this time. Patient and/or ph family updated on plan of care and expected duration. Pain level reassessed. Patient is alert, oriented x 3, equal unlabored respirations, skin warm/dry/pink. 17:00 Reassessment: Patient appears in no apparent distress at this time. Patient and/or ph family updated on plan of care and expected duration. Pain level reassessed. Patient is alert, oriented x 3, equal unlabored respirations, skin warm/dry/pink. Vital Signs: 13:16 BP 137 / 91; Pulse 84; Resp 18; Temp 97.4; Pulse Ox 100% on R/A; Weight 72.57 kg; ph Height 5 ft. 8 in. ; 16:08 BP 125 / 86; Pulse 80; Resp 18; Pulse Ox 100% on R/A; mb9 17:08 BP 117 / 82; Pulse 67; Resp 18; Pulse Ox 98% on R/A; ph 18:02 BP 103 / 72; Pulse 76; Resp 18; Pulse Ox 100% on R/A; ph 13:16 Body Mass Index 24.33 (72.57 kg, 172.72 cm) ph ED Course: 13:09 Patient arrived in ED. eb 13:09 Tigist Morrow, RN is Primary Nurse. ph 13:10 Arm band placed on. mb9 13:10 Placed in gown. Bed in low position. Call light in reach. Side rails up X 1. Client mb9 placed on continuous cardiac and pulse oximetry monitoring. NIBP monitoring applied. personnel monitor on. 13:12 Sina Pemberton PA is PHCP. cp 13:12 Sina Rodriguez MD is Attending Physician. cp 13:19 Triage completed. ph 13:19 EKG done, by ED staff, reviewed by Sina VAUGHN. mb9 13:22 Maintain EMS IV. Dressing intact. Good blood return noted. Site clean \T\ dry. Gauge \T\ ph site: 20 G RAC. Patient maintains SpO2 saturation greater than 95% on room air. 14:05 XRAY Chest (1 view) In Process Unspecified. EDMS 14:20 Urinalysis W/Microscopic Sent. ph 14:20 UDS Sent. ph 14:20 COVID-19 SARS RT PCR Sent. ph 19:03 No provider procedures requiring assistance completed. IV discontinued, intact, ph bleeding controlled, No redness/swelling at site. Pressure dressing applied. Administered Medications: 13:50 Drug: Ketorolac IVP 15 mg IVP once Route: IVP; Site: right antecubital; ph 19:03 Follow up: Response: No adverse reaction ph 13:50 Drug: NS 0.9% IV 1000 ml IV at 1 bolus Per protocol; 1000 mL bolus Route: IV; Rate: 1 ph bolus; Site: right antecubital; 15:00 Follow up: Response: No adverse reaction; IV Status: Completed infusion ph 14:10 Not Given (Physician Discretion): [id number] mg IVP once cp 14:10 Not Given (Physician Discretion): ondansetron 4 mg IVP once; over 2 minutes cp 14:10 Not Given (Physician Discretion): [id number] mg IVP once; over 1 to 2 minutes cp 14:19 Drug: Promethazine IVP 25 mg IVP once Route: IVP; Site: right antecubital; ph 19:03 Follow up: Response: No adverse reaction ph 16:15 Drug: Decadron - Dexamethasone IVP 10 mg IVP once Route: IVP; Site: right antecubital; ph 19:03 Follow up: Response: No adverse reaction ph 16:15 Drug: Methocarbamol IVPB 1 grams IVPB once over 1 hrs; (mix in NS 100 mL) Route: IVPB; ph Infused Over: 1 hrs; Site: right antecubital; 19:05 Follow up: Response: No adverse reaction; IV Status: Completed infusion ph Medication: 13:10 VIS not applicable for this client. mb9 Outcome: 18:38 Discharge ordered by MD. cp 19:04 Discharged to home ambulatory, with significant other, ph 19:04 Condition: good 19:04 Discharge instructions given to patient, Instructed on discharge instructions, follow up and referral plans. medication usage, Demonstrated understanding of instructions, follow-up care, medications, Prescriptions given X 2, 19:05 Patient left the ED. ph Signatures: Dispatcher [employer] EDTigist Lind RN RN ph Sina Pemberton PA PA cp Botello, Elizabeth eb Breneman, Mary Beth RN RN mb9 Corrections: (The following items were deleted from the chart) 13:20 13:19 Allergies: ondansetron; ph ph
[2023-07-24 19:13] VITALS: TEMP 97.4; O2SAT 100
[2023-07-24 19:39] VITALS: BP 103/72
== END ==
LOC: ER 13:07
DX: R07.9 Chest pain, unspecified (principal)
CPT/HCPCS: 36415; 71045; 80048; 80076; 80307; 81001; 81025; 83735; 83880; 84484; 85025; 85610; 87635; 96361; 96365; 96366; 96375; 99285; J1100; J1200; J2405; J2550; J2800; J7030

== ENCOUNTER 2024-02-03 16:24 | Emergency (ER) | payer SELFPAY ==
--- OUTSIDE RECORDS SUMMARY | 2024-02-03 16:26 | XMS REPORT | Continuity of Care Document ---
Author Name Unknown Address [address] [place] [address] [facility] thconnect Address [address] [place] [address] Care Team Providers Care Load Out Person Name Role Phone Unavailable Unavailable Unavailable Encounters Start Date/Time End Date/Time Encounter Type Admission Type Attending [facility] Facility Care Department Encounter ID Source 2023-01-10 13:24:21 2023-01-10 13:24:21 Outpatient [facility] SFA [id number] Brando F [place] 2022-12-24 13:54:42 2022-12-24 13:54:42 Outpatient [facility] SFA [id number] Brando Mancuso [place] 2022-11-25 17:39:40 2022-11-25 17:39:40 Outpatient SFA SFA [id number] Brando F [place] 2022-08-04 15:08:32 2022-08-04 15:08:32 Outpatient SFA SFA [id number] Brando Bartolome [place] 2022-08-01 10:28:54 2022-08-01 10:28:54 Outpatient [facility]FA SFA [id number] Brando Kee
[2024-02-03] MEDS ORDERED: ONDANSETRON 4 MG/2 ML VIAL ONE (17:29)
[2024-02-03] MEDS ORDERED: SMZ./TMP. 800/160 MG TABLET ONE (17:29)
[2024-02-03] MEDS ORDERED: NA CHLORIDE 0.9% 1,000 ML ONE (17:30)
[2024-02-03] MEDS ORDERED: FENTANYL CITR 100 MCG/2 ML ONE (17:30)
--- NOTE | 2024-02-03 18:41 | EDPHYS ---
Physician Documentation [facility] Name: Fide Scott Age: 38 yrs Sex: Female : 1985 Arrival Date: 02/03/2024 Time: 16:24 Bed 24 Private MD: ED Physician Sina Rodriguez HPI: 02/02 16:56 This 38 yrs old Female presents to ER via EMS with complaints of Arm Pain. rere 16:56 The patient or guardian complains of decreased range of motion, pain, swelling. The rere complaints affect the right axilla. Context: The problem was sustained outdoors. Onset: The symptoms/episode began/occurred today. Treatment prior to arrival includes: prescription medications, DOXY. Modifying factors: The symptoms are alleviated by remaining still, the symptoms are aggravated by movement, bending arm. Severity of symptoms: At their worst the symptoms were mild, moderate, in the emergency department the symptoms are unchanged. The patient has experienced similar episodes in the past, a few times. [employer]: 16:35 LMP N/A - Hysterectomy, Not tm6 Historical: - Allergies: 16:35 Aspirin; tm6 16:35 Iodinated Contrast Media - IV Dye; tm6 16:35 Iodine; tm6 16:35 Levaquin; tm6 16:35 Morphine; tm6 16:35 PENICILLINS; tm6 16:35 Codeine; tm6 16:35 Reglan; tm6 - PMHx: 16:35 hydronephrosis; scoliosis; harpal parkinson white syndrome; tm6 - PSHx: 16:35 Appendectomy; Cholecystectomy; cystectomy; Tonsillectomy; oophorectomy; tubal ligation; tm6 numerous lymph nodes lanced or removed; 16:39 partial hysterectomy; tm6 - Immunization history:: Client reports receiving the 2nd dose of the Covid vaccine. - Infectious Disease History:: Denies. - Social history:: Smoking status: Patient denies any tobacco usage or history of. Patient uses alcohol, occasionally. - Family history:: not pertinent. ROS: 16:56 Constitutional: Negative for fever, chills, and weight loss, Eyes: Negative for injury, rere pain, redness, and discharge, ENT: Negative for injury, pain, and discharge, Neck: Negative for injury, pain, and swelling, Cardiovascular: Negative for chest pain, palpitations, and edema, Respiratory: Negative for shortness of breath, cough, wheezing, and pleuritic chest pain, Abdomen/GI: Negative for abdominal pain, nausea, vomiting, diarrhea, and constipation, Back: Negative for injury and pain, : Negative for injury, bleeding, discharge, and swelling, Skin: Negative for injury, rash, and discoloration, Neuro: Negative for headache, weakness, numbness, tingling, and seizure, Psych: Negative for depression, anxiety, suicide ideation, homicidal ideation, and hallucinations, Allergy/Immunology: Negative for hives, rash, and allergies, Endocrine: Negative for neck swelling, polydipsia, polyuria, polyphagia, and marked weight changes, Hematologic/Lymphatic: Negative for swollen nodes, abnormal bleeding, and unusual bruising, 16:56 MS/extremity: Positive for pain, swelling, of the right axilla, Exam: 16:56 Constitutional: This is a well developed, well nourished patient who is awake, alert, rere and in no acute distress. Head/Face: Normocephalic, atraumatic. Eyes: Pupils equal round and reactive to light, extra-ocular motions intact. Lids and lashes normal. Conjunctiva and sclera are non-icteric and not injected. Cornea within normal limits. Periorbital areas with no swelling, redness, or edema. ENT: Nares patent. No nasal discharge, no septal abnormalities noted. Tympanic membranes are normal and external auditory canals are clear. Oropharynx with no redness, swelling, or masses, exudates, or evidence of obstruction, uvula midline. Mucous membranes moist. Neck: Trachea midline, no thyromegaly or masses palpated, and no cervical lymphadenopathy. Supple, full range of motion without nuchal rigidity, or vertebral point tenderness. No Meningismus. Chest/axilla: Normal chest wall appearance and motion. Nontender with no deformity. No lesions are appreciated. Cardiovascular: Regular rate and rhythm with a normal S1 and S2. No gallops, murmurs, or rubs. Normal PMI, no JVD. No pulse deficits. Respiratory: Lungs have equal breath sounds bilaterally, clear to auscultation and percussion. No rales, rhonchi or wheezes noted. No increased work of breathing, no retractions or nasal flaring. Abdomen/GI: Soft, non-tender, with normal bowel sounds. No distension or tympany. No guarding or rebound. No evidence of tenderness throughout. Back: No spinal tenderness. No costovertebral tenderness. Full range of motion. Skin: Warm, dry with normal turgor. Normal color with no rashes, no lesions, and no evidence of cellulitis. Neuro: Awake and alert, GCS 15, oriented to person, place, time, and situation. Cranial nerves II-XII grossly intact. Motor strength 5/5 in all extremities. Sensory grossly intact. Cerebellar exam normal. Normal gait. Psych: Awake, alert, with orientation to person, place and time. Behavior, mood, and affect are within normal limits. 16:56 Musculoskeletal/extremity: Extremities: grossly normal except: noted in the right axilla: pain, ROM: limited active range of motion due to pain, limited passive range of motion due to pain, in the anterior aspect of right shoulder, right axilla and posterior aspect of right shoulder, Vital Signs: 16:32 BP 131 / 71; Pulse 75; Resp 19; Temp 97.4(TE); Pulse Ox 99% on R/A; Weight 70.76 kg; tm6 Height 5 ft. 8 in. ; Pain 10/10; 17:30 BP 125 / 89; Pulse 62; Resp 18; Pulse Ox 99% on R/A; Pain 10/10; tl4 16:32 Body Mass Index 23.72 (70.76 kg, 172.72 cm) tm6 16:32 Pain Scale: Adult tm6 17:30 Pain Scale: Adult tl4 MDM: 16:44 Patient medically screened. [facility] 16:56 Differential diagnosis: contusion, tendonitis. Data reviewed: vital signs, nurses [facility] notes, lab test result(s), radiologic studies, plain films, ultrasound. Consideration of Admission/Observation Escalation of care including admission/observation considered. I considered the following discharge prescriptions or medication management in the emergency department Medications were administered in the Emergency Department. See MAR. Independent interpretation of the following test(s) in the Emergency Department Radiology Department Ultrasound: My interpretation is USG AXILLA. Test considered but Not performed: CT: NO CT. Historians other than the Patient: EMS: EMS WELL IN FORMED. PT WELL INFORMED. Care significantly affected by the following chronic conditions: Obesity, WPW, SCOLIOSIS, HYDRO. 02/02 16:56 Order name: CBC with Diff; Complete Time: 18:58 [facility] 02/02 16:56 Order name: Comprehensive Metabolic Panel [facility] 02/02 17:08 Order name: Shoulder Right (2 View) XRAY [facility] 02/02 17:17 Order name: Extremity Nonvascular Complete; Complete Time: 19:01 EDMS 02/02 17:08 Order name: Sling; Complete Time: 19:23 [facility] 02/02 18:54 Order name: Ice pack; Complete Time: 19:23 rere Administered Medications: 17:42 Drug: NS 0.9% IV 1000 ml IV at 1 bolus Per protocol; 1000 mL bolus Route: IV; Rate: 1 tl4 bolus; Site: right antecubital; Delivery: Primary tubing; 19:35 Follow up: Response: No adverse reaction; IV Status: Completed infusion; IV Intake: tl4 1000ml 17:43 Drug: fentaNYL (PF) IVP 50 mcg IVP once Route: IVP; Infused Over: 2 mins; Site: right tl4 antecubital; 18:35 Follow up: Response: No adverse reaction; Pain is decreased tl4 17:50 Drug: Ondansetron IVP 4 mg IVP once; over 2 minutes Route: IVP; Infused Over: 2 mins; tl4 Site: right antecubital; 18:35 Follow up: Response: No adverse reaction; Nausea is decreased tl4 18:01 Drug: Trimethoprim-Sulfamethoxazole PO (160 mg-800 mg (DS) 1 tablet PO once Route: PO; tl4 18:35 Follow up: Response: No adverse reaction tl4 19:23 Drug: HYDROmorphone IVP 1 mg IVP once Route: IVP; Site: right antecubital; tl4 19:35 Follow up: Response: No adverse reaction; Pain is decreased tl4 Disposition Summary: 02/03/24 18:40 Discharge Ordered Notes: Location: Home rere Problem: new rere Symptoms: have improved rere Condition: Stable rere Diagnosis - Localized enlarged lymph nodes rere - Unspecified symptoms and signs involving the musculoskeletal system rere Followup: rere - With: Private Physician - When: 2 - 3 days - Reason: Recheck today's complaints, Continuance of care, Re-evaluation by your physician Followup: rere - With: Chato Riley MD - When: 2 - 3 days - Reason: Recheck today's complaints, Re-evaluation by your physician Discharge Instructions: - Discharge Summary Sheet rere - Musculoskeletal Pain rere - Lymphadenopathy rere Forms: - Medication Reconciliation Form rere - Antibiotic Education rere - Prescription Opioid Use rere - Patient Portal Instructions rere - Leadership Thank You Letter [facility] Prescriptions: - Doxycycline Hyclate 100 mg Oral tablet - take 1 tablet ORAL route every 12 hours; 14 tablet; Refills: 0, Product [facility] Selection Permitted - Bactrim DS 800-160 mg Oral Tablet - take 1 tablet ORAL route every 12 hours for 7 days; 14 tablet; Refills: 0, [facility] Product Selection Permitted Signatures: Dispatcher [employer] EDMS Sina Rodriguez MD MD cha Masterson, Tawney RN RN tm6 Enrique Gallardo RN RN tl4 Corrections: (The following items were deleted from the chart) 16:56 16:56 CBC+H.LAB.BRZ ordered. EDMS EDMS 16:56 16:56 COMPREHENSIVE METABOLIC PANEL+C.LAB.BRZ ordered. EDMS EDMS 16:56 16:56 Extrmty Nonvasular Limited+US.RAD.BRZ ordered. EDMS EDMS
--- NOTE | 2024-02-03 18:41 | ER ---
Nurse's Notes [facility] Name: Fide Scott Age: 38 yrs Sex: Female : 1985 Arrival Date: 02/03/2024 Time: 16:24 Bed 24 Private MD: Diagnosis: Localized enlarged lymph nodes;Unspecified symptoms and signs involving the musculoskeletal system Presentation: 02/02 16:32 Chief complaint: EMS states: has a swollen lymph node on right armpit, for which she tm6 went to [facility] ED yesterday. Today, she was walking her dog and the dog jerked the leash. Patient heard a popping sound and is having a lot of pain and swelling in the lymph node. Coronavirus screen: Vaccine status: Patient reports receiving the 2nd dose of the covid vaccine. Ebola Screen: Patient negative for fever greater than or equal to 101.5 degrees Fahrenheit, and additional compatible Ebola Virus Disease symptoms Patient denies exposure to infectious person. Patient denies travel to an Ebola-affected area in the 21 days before illness onset. No symptoms or risks identified at this time. Initial Sepsis Screen: Does the patient meet any 2 criteria? No. Patient's initial sepsis screen is negative. Does the patient have a suspected source of infection? No. Patient's initial sepsis screen is negative. Risk Assessment: Do you want to hurt yourself or someone else? Patient reports no desire to harm self or others. Onset of symptoms was February 03, 2024. Care prior to arrival: Medication(s) given: zofran 4 mg, 1g ofirmev. 16:32 Method Of Arrival: EMS: [facility] tm6 16:32 Acuity: MONIK 3 tm6 Triage Assessment: 16:35 General: Appears uncomfortable, Behavior is calm, cooperative. Pain: Complains of pain tm6 in right axilla Pain currently is 10 out of 10 on a pain scale. Also complains of nausea. EENT: No signs and/or symptoms were reported regarding the EENT system. Neuro: Level of Consciousness is awake, alert, obeys commands, Oriented to person, place, time, situation. Cardiovascular: Patient's skin is warm and dry. Respiratory: Airway is patent Respiratory effort is even, unlabored, Respiratory pattern is regular, symmetrical. GI: Abdomen is flat, non-distended, Reports nausea, vomiting. : No signs and/or symptoms were reported regarding the genitourinary system. Derm: No signs and/or symptoms reported regarding the dermatologic system. Musculoskeletal: Reports pain in right axilla Pain is 10 out of 10 on a pain scale. SIGN MAINTENANCE: 16:35 LMP N/A - Hysterectomy, Not tm6 Historical: - Allergies: 16:35 Aspirin; tm6 16:35 Iodinated Contrast Media - IV Dye; tm6 16:35 Iodine; tm6 16:35 Levaquin; tm6 16:35 Morphine; tm6 16:35 PENICILLINS; tm6 16:35 Codeine; tm6 16:35 Reglan; tm6 - PMHx: 16:35 hydronephrosis; scoliosis; harpal parkinson white syndrome; tm6 - PSHx: 16:35 Appendectomy; Cholecystectomy; cystectomy; Tonsillectomy; oophorectomy; tubal ligation; tm6 numerous lymph nodes lanced or removed; 16:39 partial hysterectomy; tm6 - Immunization history:: Client reports receiving the 2nd dose of the Covid vaccine. - Infectious Disease History:: Denies. - Social history:: Smoking status: Patient denies any tobacco usage or history of. Patient uses alcohol, occasionally. - Family history:: not pertinent. Screenin:00 [facility] ED Fall Risk Assessment (Adult) History of falling in the last 3 months, tl4 including since admission No falls in past 3 months (0 pts) Confusion or Disorientation No (0 pts) Intoxicated or Sedated No (0 pts) Impaired Gait No (0 pts) Mobility Assist Device Used No (0 pt) Altered Elimination No (0 pt) Score/Fall Risk Level 0 - 2 = Low Risk Oriented to surroundings, Maintained a safe environment, Educated pt \T\ family on fall prevention, incl call for assistance when getting out of bed, Assessed \T\ reinforced patient's understanding of fall precautions. Abuse screen: Denies threats or abuse. Denies injuries from another. Nutritional screening: No deficits noted. Tuberculosis screening: No symptoms or risk factors identified. Assessment: 17:57 General: Appears in no apparent distress. Behavior is calm, cooperative. Pain: tl4 Complains of pain in posterior aspect of right shoulder and anterior aspect of right shoulder and right arm and right axilla. Neuro: Level of Consciousness is awake, alert, obeys commands, Oriented to person, place, time, situation. Cardiovascular: Capillary refill < 3 seconds Patient's skin is warm and dry. Respiratory: Airway is patent Respiratory effort is even, unlabored, Respiratory pattern is regular, symmetrical, Breath sounds are clear bilaterally. GI: Reports nausea, vomiting. : No signs and/or symptoms were reported regarding the genitourinary system. EENT: No signs and/or symptoms were reported regarding the EENT system. Derm: Abscess located on right axilla. Musculoskeletal: No signs and/or symptoms reported regarding the musculoskeletal system. Vital Signs: 16:32 BP 131 / 71; Pulse 75; Resp 19; Temp 97.4(TE); Pulse Ox 99% on R/A; Weight 70.76 kg; tm6 Height 5 ft. 8 in. ; Pain 10/10; 17:30 BP 125 / 89; Pulse 62; Resp 18; Pulse Ox 99% on R/A; Pain 10/10; tl4 16:32 Body Mass Index 23.72 (70.76 kg, 172.72 cm) tm6 16:32 Pain Scale: Adult tm6 17:30 Pain Scale: Adult tl4 ED Course: 16:32 Patient arrived in ED. im 16:35 Triage completed. tm6 16:35 Arm band placed on right wrist. tm6 16:44 Sina Rodriguez MD is Attending Physician. rere 17:22 Enrique Gallardo, RN is Primary Nurse. tl4 17:30 Extremity Nonvascular Complete In Process Unspecified. EDMS 18:00 Patient has correct armband on for positive identification. Bed in low position. Call tl4 light in reach. Side rails up X 1. Provided Education on: ed process, call martinez. Client placed on continuous cardiac and pulse oximetry monitoring. NIBP monitoring applied. Door closed. Noise minimized. Lights dimmed. Moved to private room. Warm blanket given. 18:00 No provider procedures requiring assistance completed. tl4 18:36 Comprehensive Metabolic Panel Sent. tl4 18:36 CBC with Diff Sent. tl4 18:40 Chato Riley MD is Referral Physician. rere 18:58 Shoulder Right (2 View) XRAY In Process Unspecified. EDMS 19:35 IV discontinued, intact, bleeding controlled, No redness/swelling at site. Pressure tl4 dressing applied. 19:36 Sling applied to right arm. tl4 Administered Medications: 17:42 Drug: NS 0.9% IV 1000 ml IV at 1 bolus Per protocol; 1000 mL bolus Route: IV; Rate: 1 tl4 bolus; Site: right antecubital; Delivery: Primary tubing; 19:35 Follow up: Response: No adverse reaction; IV Status: Completed infusion; IV Intake: tl4 1000ml 17:43 Drug: fentaNYL (PF) IVP 50 mcg IVP once Route: IVP; Infused Over: 2 mins; Site: right tl4 antecubital; 18:35 Follow up: Response: No adverse reaction; Pain is decreased tl4 17:50 Drug: Ondansetron IVP 4 mg IVP once; over 2 minutes Route: IVP; Infused Over: 2 mins; tl4 Site: right antecubital; 18:35 Follow up: Response: No adverse reaction; Nausea is decreased tl4 18:01 Drug: Trimethoprim-Sulfamethoxazole PO (160 mg-800 mg (DS) 1 tablet PO once Route: PO; tl4 18:35 Follow up: Response: No adverse reaction tl4 19:23 Drug: HYDROmorphone IVP 1 mg IVP once Route: IVP; Site: right antecubital; tl4 19:35 Follow up: Response: No adverse reaction; Pain is decreased tl4 Medication: 18:00 VIS not applicable for this client. tl4 Intake: 19:35 IV: 1000ml; Total: 1000ml. tl4 Outcome: 18:40 Discharge ordered by MD. jernigan 19:36 Discharged to home ambulatory, with family, tl4 19:36 Condition: stable 19:36 Discharge instructions given to patient, Instructed on discharge instructions, follow up and referral plans. medication usage, splint use Demonstrated understanding of instructions, follow-up care, medications, splint care, Prescriptions given X 2, 19:36 Patient left the ED. tl4 Signatures: Dispatcher [employer] Sina Rincon MD MD cha Mendoza, Itzel im Masterson, Tawney RN RN tm6 Enrique Gallardo RN RN tl4
[2024-02-03 18:54] LABS: Absolute Eosinophils 0.1 K/uL (0-0.5); Absolute Lymphocytes (CBC) 1.4 K/uL (0.7-4.9); Absolute Monocytes 0.5 K/uL (0.1-1.3); Absolute Neutrophil 4.2 K/uL (1.8-8.0); Basophils % 0.5 % (0-1.3); Eosinophils % 1.5 % (0-4.4); Hematocrit 36.7 % (36.0-45.0); Hemoglobin 12.3 g/dL (12.0-15.0); Lymphocytes % 22.7 % (15.3-44.8); MCH 34.2 pg (27.0-35.0); MCHC 33.6 g/dL (32.0-36.0); MCV 101.6 fL (80-100); MPV 7.2 fL (7.6-11.3); Monocytes % 8.7 % (3.3-12.3); Neutrophils % 66.6 % (41.7-73.7); Platelets 235 thou/uL (152-406); RBC Red Blood Cell Count 3.61 M/uL (3.86-4.86)
[2024-02-03 19:00] LABS: ALT/SGPT 20 U/L (13-56); Albumin 3.4 g/dL (3.4-5.0); Albumin/Globulin Ratio 0.9 (1.1-1.8); Alkaline Phosphatase 77 U/L (45-117); Anion Gap 8.5 mEq/L (5.0-15.0); BUN Blood Urea Nitrogen 15 mg/dL (7-18); Bicarbonate 26 mEq/L (21-32); Bilirubin Total 0.2 mg/dL (0.2-1.0); Globulin 3.9 g/dL (2.3-3.5); Glomerular Filtration Rate 116 ml/min (=/>90); Glucose Level 96 mg/dL (74-106); Potassium 3.5 mEq/L (3.5-5.1); Protein, Total 7.3 g/dL (6.4-8.2); Sodium Level 141 mEq/L (136-145)
--- NOTE | 2024-02-03 19:00 | RAD REPORT ---
Extremity Nonvascular Complete History: Right axillary pain Comparison: None. Technique: Sonographic evaluation right axilla Findings: 3 x 3.2 x 3.4 cm lymph node present within the right axilla. It is vascular. The periphery is more h ypoechoic than normal. Impression: 3 x 3.2 x 3.4 cm vascular right axillary lymph node may be inflammatory. As neoplasm can have this ap pearance it is recommended that patient have a follow-up ultrasound in one month for reevaluation.
[2024-02-03 19:05] LABS: AST/SGOT < 10 U/L (15-37)
--- NOTE | 2024-02-03 19:14 | RAD REPORT ---
EXAMINATION: XR RIGHT SHOUDLER CLINICAL INDICATION: Shoulder pain TECHNIQUE:Two view radiograph of theright shoulder were obtained. No fracture or dislocation seen
[2024-02-03] MEDS ORDERED: HYDROMORPHONE HCL 1 MG/ML INJ ONE (19:21)
[2024-02-03 20:25] VITALS: TEMP 97.4; O2SAT 99
[2024-02-03 20:28] VITALS: BP 125/89
== END 2024-02-03 19:36 | disposition home or self-care (01) ==
LOC: ER 16:24
DX: R59.0 Localized enlarged lymph nodes (principal); R29.91 Unspecified symptoms and signs involving the musculoskeletal system; Z79.82 Long term (current) use of aspirin; Z88.0 Allergy status to penicillin; Z88.1 Allergy status to other antibiotic agents; Z88.5 Allergy status to narcotic agent; Z88.8 Allergy status to other drugs, medicaments and biological substances; Z91.041 Radiographic dye allergy status
CPT/HCPCS: 36415; 76881; 80053; 85025; 96361; 96374; 96375; 99284; J1170; J2405; J3010; J7030